=== PATIENT | male | born 1935 | race Caucasian/White ===

== ENCOUNTER 2019-12-23 16:39 | Emergency (ER) | payer BC, SELFPAY ==
[2019-12-23 16:50] VITALS: BP 135/51; PULSE 63; RESP 12; TEMP 36.3; O2SAT 99
--- NOTE | 2019-12-23 17:01 | ED.LOWEXIN ---
HPI - Extremity Injury (Lower) General Chief Complaint: Extremity Injury, Lower Stated Complaint: Extremity injury,lower Time Seen by Provider: 12/23/19 17:01 Source: patient and RN notes reviewed History of Present Illness HPI Narrative: Patient is an 83-year-old male who presents the urgent care with complaints of severe pain behind the right knee. Patient states that it started yesterday morning he has been sitting in his recliner with the foot elevated without improvement. Patient denies any recent known injury or fall. States that nothing seems to make the area less painful. States that standing upright or ambulating exacerbates the pain. 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 Patient states he has not had recurrent issues or Boyd's cyst since then. No other acute complaints. No acute distress noted. Patient aware of the plan of care. Related Data Home Medications Medication Instructions Recorded Confirmed dutasteride 0.5 mg capsule 0.5 mg PO DAILY 05/24/19 12/14/19 nebivolol 5 mg tablet 0.25 mg PO DAILY tablet 05/24/19 12/14/19 aspirin 81 mg tablet,delayed 162 mg PO DAILY tablet 12/07/19 12/14/19 release atorvastatin 40 mg tablet 40 mg PO DAILY 12/07/19 12/14/19 vit C 250 mg-E 200 unit-zinc 40 1 tablet PO ONCE cap 12/07/19 12/14/19 mg-copper 1 dj-[id number]-bhesub capsule coenzyme Q10 200 mg capsule 200 mg PO DAILY 12/14/19 12/14/19 vitamin B complex 1 tablet PO DAILY 12/14/19 12/14/19 Allergies Allergy/AdvReac Type Severity Reaction Status Date / Time Penicillins Allergy Unknown Unknown Verified 12/23/19 16:48 Review of Systems Review of Systems: Narrative: CONSTITUTIONAL: Denies fever, chills, or sweats. EYES: Denies visual changes, redness, or discharge. ENT: Denies rhinorrhea, congestion, sore throat, or otalgia. CARDIOVASCULAR: Denies chest pain, palpitations, or edema. RESPIRATORY: Denies cough or dyspnea. GASTROINTESTINAL: Denies abdominal pain, nausea, vomiting, or diarrhea. GENITOURINARY: Denies dysuria or hematuria. SKIN: Denies rash or itching. MUSCULOSKELETAL: Reports of pain behind the right knee NEUROLOGIC: Denies headache, numbness, or weakness. All other systems reviewed are negative, except as documented in HPI. PENDING SALE TO [facility] Past Medical History Medical History (Updated 12/23/19 @ 17:05 by SOPHY Dent) BPH (benign prostatic hyperplasia) Coronary artery disease Dupuytrens contracture GERD (gastroesophageal reflux disease) Hammer toe of second toe of right foot Hyperlipidemia Open wound of umbilical region without complication Osteoarthritis of both knees Primary hypertension Right anterior shoulder pain (~08/2018) Right inguinal hernia Surgical History Surgical History History of appendectomy History of hand surgery History of hernia repair History of vasectomy Hx of CABG (~2010) Hx of cataract surgery Hx of tonsillectomy Social History Social History Smoking status: Former smoker Second hand tobacco smoke exposure: No Smoking end date: 04/28/80 Alcohol intake: never Substance use: never Substance use type: does not use Gender identity (if verbalized by the patient): Male Comments At the time of my signature, I reviewed and agree with the nursing past medical, surgical, social, and family history. There is no relevant family history pertinent to the patient complaint. Exam Narrative: Exam Narrative: GENERAL: This is a well-nourished, well-developed patient, in no apparent distress. HEAD: normocephalic, atraumatic. EYES: PERRL. Sclera clear/white. Vision is grossly intact. EARS: External ears normal NOSE: External nose normal with no obvious nasal discharge, nares without redness, no rhinorrhea. THROAT: Mucous membranes moist NECK: Neck supple SKIN: warm, intact with no s
== END 2019-12-23 17:10 | disposition home or self-care (01) ==
PROVIDERS: Emergency Provider Nurse Practitioner Family; PCP Family Medicine
DX: M71.21 Synovial cyst of popliteal space [Baker], right knee (principal); Z87.891 Personal history of nicotine dependence; N40.0 Benign prostatic hyperplasia without lower urinary tract symptoms; I25.10 Atherosclerotic heart disease of native coronary artery without angina pectoris; K21.9 Gastro-esophageal reflux disease without esophagitis; E78.5 Hyperlipidemia, unspecified; M17.0 Bilateral primary osteoarthritis of knee; I10 Essential (primary) hypertension; Z79.82 Long term (current) use of aspirin
CPT/HCPCS: 99212; G0463

== ENCOUNTER 2020-01-16 00:03 | Observation (INO) | payer BC, SELFPAY ==
[2020-01-16] VITALS (8 sets, daily range): BP systolic 121–153; BP diastolic 53–73; PULSE 55–68; RESP 14–20; TEMP 36.2–36.9; O2SAT 97–100; BMI 24.6
--- NOTE | ~2020-01-16 | CT_ITS ---
EXAMINATION: CT abdomen pelvis w con DATE: 01/16/2020 01:14 INDICATION: Abdominal pain TECHNIQUE: Computed tomography (CT) of the abdomen and pelvis was performed with 100 cc Omnipaque 350 intravenous contrast. Automated exposure control and iterative reconstruction technique were employe d. Exam dose: 495.24 mGy-cm total exam DLP. COMPARISON: 10/22/2015 CT abdomen pelvis FINDINGS: There is mild atelectasis at the lung bases. Borderline heart size. No pericardial or pleur al effusion. Small hepatic cysts are suggested. An enhancing lesion is suggested in the left hepatic lobe (series 3 images 48, 49, possibly a small hemangioma. Normal splenic size. No pancreatic mass lesion, calcification or ductal dilatation. Normal morphology of the adrenal glands. 3 mm nonobstructing right renal calculus. 12 mm mid lateral left renal cyst. Multiple left parapelvic renal cysts. No ureteral calculus or hydroureteronephrosis. Very prominent prostate enlargement and occasional prostate calcifications. The urinary bladder is un remarkable. There is atherosclerotic calcification of the abdominal aorta and iliac and femoral arteries. No intr aperitoneal or retroperitoneal or pelvic mass lesion or adenopathy or ascites. Diverticulosis of the colon; no CT evidence of diverticulitis. Right inguinal hernia containing a single loop of small bowel in trace free fluid. There are multiple fluid distended loops of small bowel in the abdomen and pelvis with a transition p oint noted in the left pelvis, with proximal equalization of the small bowel content, consistent with small bowel obstruction. There is a small amount of free fluid in the dependent pelvis, likely secondary to the small bowel ob struction. Prominent bilateral hip osteoarthritis. 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 Grade 1 anterolisthesis at L4-5. Prominent degenerative changes at the apophyseal joints. IMPRESSION: Small bowel obstruction Right inguinal hernia containing nonobstructed loop of small bowel Hepatic cysts and possible hepatic hemangioma 3 mm nonobstructing right renal calculus Left renal cysts Diverticulosis of the colon Reviewed, dictated and finalized at [facility] Reviewed, dictated and finalized at [facility].
--- NOTE | 2020-01-16 00:14 | ECG_ITS ---
Measurements Intervals [place] Rate: 54 P: 58 IA: 174 QRS: -31 QRSD: 98 T: 48 QT: 429 QTc: 409 Interpretive Statements SINUS BRADYCARDIA LEFT AXIS DEVIATION BORDERLINE ECG Electronically Signed On 01-16-2020 8:03:19 CDT by Jose Armando Perry D.O.
[2020-01-16 00:27] LABS: Basophils Percent Auto 0.2 % (0.2-1.2); Eosinophils Absolute Auto 0.2 K/mm3 (0-0.3); Eosinophils Percent Auto 1.7 % (0-4.4); Hematocrit 43.4 % (42.0-52.0); Hemoglobin 14.4 g/dL (14.0-18.0); Immature Granulocyte Absolute 0.02 K/mm3 (0.00-0.031); Immature Granulocyte Percent A 0.2 % (0-0.5); Lymphocytes Absolute Auto 1.99 K/mm3 (0.9-3.2); Lymphocytes Percent Auto 21.2 % (18.3-44.2); Mean Corpuscular HGB Conc 33.2 g/dl (32-36); Mean Corpuscular Hemoglobin 31.7 pg (26-34); Mean Corpuscular Volume 95.6 fl (80-100); Mean Platelet Volume 9.9 fl (7.4-10.4); Monocytes Absolute Auto 0.9 K/mm3 (0.1-0.6); Monocytes Percent Auto 9.3 % (2.6-8.5); Neutrophils Absolute Auto 6.3 K/mm3 (1.3-6.7); Neutrophils Percent Auto 67.4 % (45.5-73.1); Platelet Count Result 224 k/mm3 (150-375); Red Blood Count 4.54 M/mm3 (4.6-6.20); White Blood Count 9.4 K/mm3 (4.5-10.0)
[2020-01-16 00:38] LABS: Alanine Aminotransferase 23 U/L (4-50); Albumin Level 3.8 g/dL (3.5-5.1); Alkaline Phosphatase 72 U/L (38-126); Anion Gap 4 mmol/L (8-16); Aspartate Amino Transferase 32 U/L (17-59); Bilirubin,Total 0.7 mg/dL (0.2-1.3); Blood Urea Nitrogen 18 mg/dL (9-20); Calcium 8.6 mg/dL (8.4-10.2); Carbon Dioxide 30 mmol/L (22-30); Chloride 103 mmol/L (98-107); Estimated CRCL calculation 53 ml/min; Estimated Glomerular Filt Rate > 60; Glucose 117 mg/dL (75-110); Lipase 64 U/L (23-300); Potassium 4.5 mmol/L (3.4-5.0); Sodium 137 mmol/L (137-145)
[2020-01-16 00:38] LABS: Lactic Acid Reflex 0.8 mmol/L (0.7-2.1)
[2020-01-16] MEDS: SODIUM CHLORIDE 0.9% IV 500 ML 999 ML IV CONT (00:40)
[2020-01-16 01:57] LABS: Add Urine Microscopic? NO; Appearance Urine Clear (Clear); Bilirubin Urine Negative (Negative); Blood Urine Negative (Negative); Color Urine Yellow (Yellow); Glucose Urine UA Negative (Negative); Ketones Urine Negative (Negative); Leukocyte Esterase Ur Negative LEU/UL (Negative); Nitrate Urine Negative (Negative); Protein Urine Negative (Negative); Urobilinogen Urine Negative mg/dL (<2.0)
[2020-01-16 02:00] LABS: Specific Grav Ur 1.036 (1.001-1.035)
--- NOTE | 2020-01-16 02:19 | ED.ABDPAIN ---
HPI - Abdominal Pain General Chief Complaint: Abdominal Pain Stated Complaint: abd pain Time Seen by Provider: 01/16/20 00:15 Source: patient Mode of arrival: EMS Limitations: no limitations History of Present Illness HPI narrative: This patient is an 84 year old male who presents for evaluation of lower abdominal pain. He states he developed abdominal pain 2 hours after eating dinner at 6 pm. He describes pain as constant dull ache that intermittent becomes sharp pain. He reports the location as an arc from his left lower abdomen to right lower abdomen. He had nausea, constant belching with his pain. He denies fever or chills. He reports his pain is currently 3/10. Related Data Home Medications Medication Instructions Recorded Confirmed dutasteride 0.5 mg capsule 0.5 mg PO HS 05/24/19 01/16/20 nebivolol 5 mg tablet 2.5 mg PO DAILY tablet 05/24/19 01/16/20 atorvastatin 40 mg tablet 40 mg PO DAILY 12/07/19 01/16/20 coenzyme Q10 200 mg capsule 200 mg PO DAILY 12/14/19 01/16/20 aspirin 162 mg PO DAILY 01/16/20 01/16/20 Allergies Allergy/AdvReac Type Severity Reaction Status Date / Time Penicillins Allergy Unknown Unknown Verified 12/28/19 09:51 Review of Systems Review of Systems: All systems reviewed & are unremarkable except as noted in HPI and below Constitutional: Constitutional: Denies chills and Denies fever(s) Cardiovascular: Cardiovascular: Denies chest pain Respiratory: Respiratory: Denies cough and Denies dyspnea [facility] Social History Social History Smoking packs per day: 1 Smoking cigarettes per day: 20.0 Years smoked: 22 Smoking pack-years: 22.00 Smoking status: Former smoker Second hand tobacco smoke exposure: No Smoking end date: 04/28/80 Alcohol intake: never Substance use: never Substance use type: does not use Gender identity (if verbalized by the patient): Male Spiritual care concerns: No Exam Const: General: alert Orientation/consciousness: patient oriented x3 Eyes: EOM: EOMs intact bilaterally Chest: Chest palpation & inspection: normal inspection of the chest Resp: Effort & Inspection: normal respiratory effort and no retractions Auscultation: clear to auscultation bilaterally Cardio: Rate: regular rate Rhythm: regular rhythm Heart sounds: no murmurs GI: Inspection: distended GI Palp: Yes Soft to palpation, Yes Tenderness to palpation present (GI) (Diffuse) and Yes Hernia present (right inguinal hernia) Skin: General skin exam: normal color Rashes: no rashes Neuro: General: patient oriented x3 and moves all extremities Psych: Mental Status: mental status grossly normal Affect: normal affect Course Reevaluation(s) Reevaluation #1: Nursing staff is unable to get NGtube to pass nose Date: 01/16/20 Time: 03:46 Consultations Consultation #1: Dr. Oconnor accepts patient and Dr. Keane will consult. Date: 01/16/20 Time: 03:00 Vital Signs Vital signs: Vital Signs Temperature 98.4 F 01/16/20 00:06 Pulse Rate 55 L 01/16/20 00:06 Respiratory Rate 15 01/16/20 00:06 Blood Pressure 121/61 01/16/20 00:06 Pulse Oximetry 99 01/16/20 00:06 Temperature 98.2 F 01/16/20 06:00 Pulse Rate 59 L 01/16/20 06:00 Respiratory Rate 20 01/16/20 06:00 Blood Pressure 148/62 H 01/16/20 06:00 Pulse Oximetry 98 01/16/20 06:00 MDM - Abdominal Pain Lab Data Attestation: I reviewed the patient's lab results. Result diagrams: 01/16/20 00:16 01/16/20 00:16 Labs: Lab Results 01/16/20 01/16/20 01/16/20 Range/Units 00:16 00:16 00:18 WBC 9.4 (4.5-10.0) K/mm3 RBC 4.54 L (4.6-6.20) M/mm3 Hgb 14.4 (14.0-18.0) g/dL Hct 43.4 (42.0-52.0) % MCV 95.6 (80-100) fl MCH 31.7 (26-34) pg MCHC 33.2 (32-36) g/dl RDW 13.0 (11.5-14.5) % Plt Count 224 (150-375) k/mm3 MPV 9.9 (7.4-10.4) fl Immature G
--- NOTE | 2020-01-16 03:43 | PC.NURSE ---
Unable to pass NG tube in either nostril (4 attempts made-twice in each nostril). Dr Fernandez made aware-patient has deviated septum and refused further attempts
--- NOTE | 2020-01-16 04:30 | ADMGEN ---
This patient, Deep Lewis, was admitted to [facility] Surg Room 326-01. Patient/family oriented to hospital policies and general routines including ID bracelet, bed and alarms, visiting hours, pain management, procedures, bathroom and other care routines, personal items, smoking policy, room service/diet, and visiting hours. Valuables list has been completed. Information on how to activate the Rapid Response Team has been discussed. Patient/Family are encouraged to report perceived risks to care and to ask questions if they do not understand what they are told or what they should do.
--- NOTE | 2020-01-16 05:17 | PM.IMHP ---
H&P: HPI History of Present Illness Date/Time: 01/16/20 05:17 Chief complaint: Abdominal pain Narrative: Deep Lewis is a 84 year old male with a past medical history of Umbilical hernia repair, appendectomy, hyperlipidemia, BPH and coronary artery disease who presented to the ER with abdominal pain that started around 9:00 p.m. after eating dinner. The patient reported that he ate him and beans, corn bread, close well, and cucumber salad. Approximately an hour after dinner he began having [id number] lower abdominal pain. Pain was aching in nature And a 3/10 in intensity but would have occasional sharp stabbing pains that would be a 6/10 in intensity. Pain was accompanied by belching. He usually has 2 soft formed bowel movements a day. his pain would start in the left lower abdomen and seemed to rotate around to the periumbilical region and right lower abdomen. Prior to coming to the ER he had had 3 soft formed bowel movements. He denies having hematochezia or melena. he reports as noted pain progressed his pain did radiate up into his epigastric region into his lower chest. He was concerned that his pain could be due to a heart attack. He took 3 nitros without any relief in his symptoms before calling EMS. He denies any shortness of breath, cough or congestion. He did have a history of coronary artery disease with 2 cardiac stents placed in 2010. The symptoms were different than his prior cardiac symptoms. he has not had any vomiting. He denies even having much nausea. ER staff tried [address] an NG without success. The patient reports he has a deviated septum. he does have history of BPH. He occasionally will have a weak stream or dribbling stream. Over the last couple of days he has noticed increased urinary frequency during the day and he has had to get up every 2 hours to urinate. He feels he may not be emptying his bladder completely. He denies any dysuria, increased urgency or hematuria. Review of Systems Review of Systems: Narrative: 12 systems were reviewed with pertinent positives and negatives per HPI. Except as documented in the HPI, all other systems were reviewed and are negative. REPLACED BY [facility] Past Medical History Medical History (Updated 01/16/20 @ 08:22 by Ursula Oconnor DO) BPH (benign prostatic hyperplasia) Coronary artery disease Dupuytrens contracture GERD (gastroesophageal reflux disease) Hammer toe of second toe of right foot Hyperlipidemia Osteoarthritis of both knees Primary hypertension Right anterior shoulder pain (~08/2018) Right inguinal hernia not repaired Surgical History Surgical History (Updated 01/16/20 @ 08:22 by Ursula Oconnor DO) History of appendectomy History of hand surgery History of heart artery stent (~2010) 2 stents History of strabismus surgery bilateral History of umbilical hernia repair History of vasectomy Hx of cataract surgery Hx of tonsillectomy Family History Family History (Updated 01/16/20 @ 08:32 by Ursula Oconnor DO) Mother , 89 years old CHF (congestive heart failure) Father , at 78 years old Hx of ulcer disease Son Drug abuse Social History Social History (Updated 01/16/20 @ 08:39 by Ursula Oconnor DO) Social History: primary care physician: Dr. Lauren Boyd Smoking packs per day: 1 Smoking cigarettes per day: 20.0 Years smoked: 22 Smoking pack-years: 22.00 Smoking status: Former smoker Second hand tobacco smoke exposure: No Smoking end date: 04/28/80 Alcohol intake: never Alcohol use details: patient only rarely drinks alcohol and small amounts. Substance use: never Substance use type: does not use Additional living arrangements comments: He lives with his of 63 years. He is independent in activities of daily living. They have 3 children. His son lives in [place]. He has a daughter who lives in [place] and another daughter that lives in [place].
[2020-01-16] MEDS: SODIUM CHLORIDE 0.9% IV 1,000 ML 125 ML IV CONT (05:50)
--- NOTE | 2020-01-16 11:35 | PM.CNGS ---
Assessment and Plan Assessment and plan (1) Small bowel obstruction: Code(s): K56.609 - Unspecified intestinal obstruction, unspecified as to partial versus complete obstruction Status: Acute Assessment and Plan: I have reviewed the CT. Patient's symptoms seem to have completely resolved since he was in the emergency department. Unsure whether this was adhesions or just a transient process. Will start patient on clear liquid diet and advanced as tolerated. Discussed that if recurrent symptoms develop he may require further imaging or possibly eventual surgical intervention. Okay to discharge once tolerating a regular diet. (2) Hernia, inguinal, right: Code(s): K40.90 - Unilateral inguinal hernia, without obstruction or gangrene, not specified as recurrent Status: Acute Assessment and Plan: This is reducible and asymptomatic. He has known that he had a hernia for quite some time. If he is having symptoms or this is becoming larger, could consider surgical repair in the future. Additional Plan Thank you very much for allowing me to aid in the care of this patient. History of Present Illness Consult details Consult date: 01/16/20 Reason for consult: other (small bowel obstruction) Requesting physician: Shanti Agustin MD Narrative: This is an 84-year-old man who presented to the emergency department overnight with abdominal pain with nausea and vomiting. The patient's symptoms started about 1 hour after eating dinner last night. He denies eating anything abnormal, and his ate the same thing and she did not get sick. He has never had symptoms like this in the past. Bowels were moving normally leading up to this. He does have a history of open appendectomy many years ago and had an umbilical hernia repair with mesh about [address] in the emergency department showed evidence of a small-bowel obstruction. NG tube placement was attempted in the emergency department but unsuccessful due to patient having a deviated septum. He was admitted for further treatment. Since being is admitted his pain has resolved and he is passing flatus and had a large bowel movement. He states he feels much better and denies any further nausea or bloating. He is hungry. Review of Systems Review of Systems: All systems reviewed & are unremarkable except as noted in HPI and below Constitutional: Constitutional: Denies chills and Denies fever(s) Eyes: Eyes: Denies change in vision ENT: Denies hearing loss, Denies neck pain and Denies sore throat Cardiovascular: Cardiovascular: Denies chest pain and Denies dyspnea Respiratory: Respiratory: Denies cough, Denies dyspnea and Denies wheezing Gastrointestinal: Gastrointestinal: Reports as per HPI Genitourinary: Genitourinary: Denies hematuria and Denies dysuria Musculoskeletal: Musculoskeletal: Denies arthralgias, Denies joint swelling and Denies neck pain Allergic/Immunologic: Allergic/Immunologic: Denies wheezing [facility] Past Medical History Medical History BPH (benign prostatic hyperplasia) Coronary artery disease Dupuytrens contracture GERD (gastroesophageal reflux disease) Hammer toe of second toe of right foot Hyperlipidemia Osteoarthritis of both knees Primary hypertension Right anterior shoulder pain (~08/2018) Right inguinal hernia not repaired Surgical History Surgical History History of appendectomy History of hand surgery History of heart artery stent (~2010) 2 stents History of strabismus surgery bilateral History of umbilical hernia repair History of vasectomy Hx of cataract surgery Hx of tonsillectomy Family History Family History Mother , 89 years old CHF (congestive heart failure) Father , at 78 years old Hx of ulcer disease Son
--- NOTE | 2020-01-16 15:07 | PM.DS ---
DS: Admitting Diagnosis Admitting Diagnosis Admitting Diagnosis: Abdominal pain DS: Discharge Diagnosis Discharge Diagnosis (1) Small bowel obstruction: Code(s): K56.609 - Unspecified intestinal obstruction, unspecified as to partial versus complete obstruction Status: Acute Assessment and Plan: the patient is NPO. General surgery has been consulted. Patient does not have an NG tube as ER staff was unable to place an NG tube in patient refused any further attempts at NG tube placement. Continue IV fluid hydration await further recommendations from General surgery. (2) BPH (benign prostatic hyperplasia): Qualifiers: Lower urinary tract symptom presence: symptoms absent Qualified Code(s): N40.0 - Benign prostatic hyperplasia without lower urinary tract symptoms Code(s): N40.0 - Benign prostatic hyperplasia without lower urinary tract symptoms Status: Acute Assessment and Plan: The patient is concerned he may not be completely emptying his bladder. I have requested that nursing staff checked the patient's postvoid residual At least once. Patient's Avodart is on hold. DS: Summary Hospital Course Reason for hospitalization: Chief complaint: Abdominal pain Narrative: Deep Lewis is a 84 year old male with a past medical history of Umbilical hernia repair, appendectomy, hyperlipidemia, BPH and coronary artery disease who presented to the ER with abdominal pain that started around 9:00 p.m. after eating dinner. The patient reported that he ate him and beans, corn bread, close well, and cucumber salad. Approximately an hour after dinner he began having [id number] lower abdominal pain. Pain was aching in nature And a 3/10 in intensity but would have occasional sharp stabbing pains that would be a 6/10 in intensity. Pain was accompanied by belching. He usually has 2 soft formed bowel movements a day. his pain would start in the left lower abdomen and seemed to rotate around to the periumbilical region and right lower abdomen. Prior to coming to the ER he had had 3 soft formed bowel movements. He denies having hematochezia or melena. he reports as noted pain progressed his pain did radiate up into his epigastric region into his lower chest. He was concerned that his pain could be due to a heart attack. He took 3 nitros without any relief in his symptoms before calling EMS. He denies any shortness of breath, cough or congestion. He did have a history of coronary artery disease with 2 cardiac stents placed in 2010. The symptoms were different than his prior cardiac symptoms. he has not had any vomiting. He denies even having much nausea. ER staff tried [address] an NG without success. The patient reports he has a deviated septum. he does have history of BPH. He occasionally will have a weak stream or dribbling stream. Over the last couple of days he has noticed increased urinary frequency during the day and he has had to get up every 2 hours to urinate. He feels he may not be emptying his bladder completely. He denies any dysuria, increased urgency or hematuria. Hospital Course: patient was seen by general surgery team review patient CT scan of abdomen seems small-bowel obstruction have resolved patient is clinically stable start the patient on clear liquid patient is able to tolerate advanced patient diet patient has no complaints of abdominal pain nausea or vomiting his clinically stable will going discharge the patient home Status at Discharge Functional status at discharge: uses cane/walker Overall status at discharge: patient is back to baseline Time Spent with Patient Time attestation: Total time spent providing and/or coordinating discharge services: Time spent: Less than 30 minutes Exam Const: General: comfortable and no acute distress HENMT: General nose exam: Normal nares present Eyes: General: appearance normal, both eyes and all
== END 2020-01-16 15:54 | disposition home or self-care (01) ==
LOC: ANHED 01:54 → ANH3MEDSUR 05:19
PROVIDERS: Emergency Medicine; Admitting Provider Internal Medicine; Emergency Provider General Practice; PCP Family Medicine; Visit Provider Family Medicine
DX: K56.609 Unspecified intestinal obstruction, unspecified as to partial versus complete obstruction (principal); K40.90 Unilateral inguinal hernia, without obstruction or gangrene, not specified as recurrent; K57.30 Diverticulosis of large intestine without perforation or abscess without bleeding; R00.1 Bradycardia, unspecified; I25.10 Atherosclerotic heart disease of native coronary artery without angina pectoris; E78.5 Hyperlipidemia, unspecified; M16.0 Bilateral primary osteoarthritis of hip; N40.0 Benign prostatic hyperplasia without lower urinary tract symptoms; Q61.02 Congenital multiple renal cysts; N20.0 Calculus of kidney; K21.9 Gastro-esophageal reflux disease without esophagitis; Z95.5 Presence of coronary angioplasty implant and graft
CPT/HCPCS: 36415; 74177; 80053; 81003; 83605; 83690; 85025; 93005; 96360; 99285; G0378; J7030; J7040; Q9967

== ENCOUNTER 2021-04-25 14:58 | Outpatient (CLI) | payer BC, SELFPAY ==
--- NOTE | ~2021-04-25 | XR_ITS ---
EXAMINATION: XR knee RT min 4V DATE: 04/25/2021 15:26 INDICATION: Cyst at the posterior right knee TECHNIQUE: Anteroposterior, 2 oblique and crosstable lateral views of the right knee were obtained COMPARISON: None. FINDINGS: Mild genu varum resulting from nonuniform joint space narrowing in the medial compartment which is of at least moderate severity but potentially underestimated on nonweightbearing imaging. Chondrocalcin osis in the lateral compartment. Marginal osteophytes in all 3 compartments of the knee along with ad ditional mild joint space narrowing in the patellofemoral compartment. No fracture. Small joint effus ion with suggestion of a few tiny loose osteochondral bodies at the suprapatellar pouch. IMPRESSION: 1. At least moderate severity medial compartment predominant tricompartmental osteoarthritis at the r ight knee with likely reactive small knee joint effusion. Reviewed, dictated and finalized at [facility] SPECIALIST IMPRESSION: 1. At least moderate severity medial compartment predominant tricompartmental o steoarthritis at the right knee with likely reactive small knee joint effusion.
--- NOTE | ~2021-04-25 | US_ITS ---
EXAMINATION: US venous doppler LE RT DATE: 04/25/2021 15:39 INDICATION: Right knee pain and swelling TECHNIQUE: Yoon scale images without and with compression and Doppler images of the right lower extre mity veins were obtained. COMPARISON: None FINDINGS: The right common femoral vein, profunda femoral vein, femoral vein, popliteal vein, peronea l trunk, posterior tibial veins, and greater saphenous vein are patent. There is a 6.1 x 2.4 x 5.7 cm Boyd cyst of the popliteal fossa. IMPRESSION: 1. Patent right lower extremity veins. No evidence of deep venous thrombosis. 2. Boyd's cyst. Reviewed, dictated and finalized at location F. 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
== END 2021-04-25 14:59 | disposition home or self-care (01) ==
LOC: ANHIMG 15:02
PROVIDERS: PCP Family Medicine; Visit Provider Nurse Practitioner Gerontology
DX: M79.606 Pain in leg, unspecified (principal); M25.461 Effusion, right knee; M25.561 Pain in right knee; M71.21 Synovial cyst of popliteal space [Baker], right knee; M17.11 Unilateral primary osteoarthritis, right knee; M79.89 Other specified soft tissue disorders
CPT/HCPCS: 73564; 93971

== ENCOUNTER 2022-07-23 06:49 | Outpatient (CLI) | payer BC, SELFPAY ==
[2022-07-23 07:14] LABS: Basophils Percent Auto 0.4 % (0.2-1.2); Eosinophils Absolute Auto 0.2 K/mm3 (0-0.3); Eosinophils Percent Auto 2.4 % (0-4.4); Hematocrit 45.6 % (42.0-52.0); Hemoglobin 15.1 g/dL (14.0-18.0); Immature Granulocyte Absolute 0.02 K/mm3 (0.00-0.031); Immature Granulocyte Percent A 0.3 % (0-0.5); Lymphocytes Percent Auto 38.4 % (18.3-44.2); Mean Corpuscular HGB Conc 33.1 g/dl (32-36); Mean Corpuscular Hemoglobin 31.3 pg (26-34); Mean Corpuscular Volume 94.6 fl (80-100); Mean Platelet Volume 9.7 fl (7.4-10.4); Monocytes Absolute Auto 0.8 K/mm3 (0.1-0.6); Monocytes Percent Auto 10.5 % (2.6-8.5); Neutrophils Absolute Auto 3.8 K/mm3 (1.3-6.7); Platelet Count Result 209 k/mm3 (150-375); Red Blood Count 4.82 M/mm3 (4.6-6.20); White Blood Count 7.8 K/mm3 (4.5-10.0)
[2022-07-23 07:28] LABS: Alanine Aminotransferase 23 U/L (6-50); Alkaline Phosphatase 72 U/L (38-126); Anion Gap 4 mmol/L (8-16); Aspartate Amino Transferase 38 U/L (17-59); Bilirubin,Total 1.4 mg/dL (0.2-1.3); Blood Urea Nitrogen 21 mg/dL (9-20); Calcium 8.5 mg/dL (8.4-10.2); Carbon Dioxide 32 mmol/L (22-30); Chloride 104 mmol/L (98-107); Cholesterol 129 mg/dL (0-200); Estimated Glomerular Filt Rate > 60; Glucose 94 mg/dL (65-110); HDL Direct 56 mg/dL; Potassium 4.4 mmol/L (3.4-5.0); Sodium 140 mmol/L (137-145); Triglycerides 82 mg/dL (<150)
[2022-07-23 07:39] LABS: LDL Cholesterol Direct 54 mg/dL
== END 2022-07-23 06:50 | disposition home or self-care (01) ==
PROVIDERS: PCP Family Medicine; Visit Provider Nurse Practitioner Gerontology
DX: E78.5 Hyperlipidemia, unspecified (principal); I10 Essential (primary) hypertension
CPT/HCPCS: 36415; 80053; 80061; 85025

== ENCOUNTER 2023-03-06 11:31 | Outpatient (CLI) | payer BC, SELFPAY ==
[2023-03-06 12:33] LABS: Basophils Percent Auto 0.4 % (0.2-1.2); Eosinophils Absolute Auto 0.1 K/mm3 (0-0.3); Eosinophils Percent Auto 1.6 % (0-4.4); Hematocrit 42.5 % (42.0-52.0); Hemoglobin 13.8 g/dL (14.0-18.0); Immature Granulocyte Absolute 0.02 K/mm3 (0.00-0.031); Immature Granulocyte Percent A 0.3 % (0-0.5); Lymphocytes Absolute Auto 1.96 K/mm3 (0.9-3.2); Lymphocytes Percent Auto 27.8 % (18.3-44.2); Mean Corpuscular HGB Conc 32.5 g/dl (32-36); Mean Corpuscular Hemoglobin 30.9 pg (26-34); Mean Corpuscular Volume 95.1 fl (80-100); Mean Platelet Volume 10.2 fl (7.4-10.4); Monocytes Absolute Auto 0.6 K/mm3 (0.1-0.6); Monocytes Percent Auto 8.9 % (2.6-8.5); Neutrophils Absolute Auto 4.3 K/mm3 (1.3-6.7); Platelet Count Result 219 k/mm3 (150-375); Red Blood Count 4.47 M/mm3 (4.6-6.20); Red Cell Distribution Width 13.1 % (11.5-14.5); White Blood Count 7.1 K/mm3 (4.5-10.0)
[2023-03-06 13:14] LABS: Alanine Aminotransferase 21 U/L (6-50); Albumin Level 3.7 g/dL (3.5-5.1); Alkaline Phosphatase 66 U/L (38-126); Anion Gap 6 mmol/L (8-16); Aspartate Amino Transferase 39 U/L (17-59); Bilirubin,Total 0.7 mg/dL (0.2-1.3); Blood Urea Nitrogen 29 mg/dL (9-20); Calcium 8.5 mg/dL (8.4-10.2); Carbon Dioxide 27 mmol/L (22-30); Chloride 108 mmol/L (98-107); Cholesterol 124 mg/dL (0-200); Estimated Glomerular Filt Rate > 60; Glucose 77 mg/dL (65-110); HDL Direct 48 mg/dL; Potassium 4.1 mmol/L (3.4-5.0); Sodium 141 mmol/L (137-145); Triglycerides 106 mg/dL (<150)
[2023-03-06 13:25] LABS: LDL Cholesterol Direct 57 mg/dL
== END 2023-03-06 11:32 | disposition home or self-care (01) ==
LOC: ANHLAB 11:33
PROVIDERS: PCP Family Medicine; Visit Provider Physician Assistant
DX: E78.5 Hyperlipidemia, unspecified (principal); I10 Essential (primary) hypertension
CPT/HCPCS: 36415; 80053; 80061; 85025

== ENCOUNTER 2023-10-29 18:17 | Emergency (ER) | payer BC, SELFPAY ==
--- NOTE | ~2023-10-29 | XR_ITS ---
XR chest 1V portable Ordering provider: Petra Castle History: 87 years Male with . chest pain . Comparison: None. FINDINGS: MEDIASTINUM: The cardiac silhouette is not enlarged. LUNGS: No infiltrates, effusions or pneumothorax. OTHER: No free air under the diaphragm. Degenerative changes of the spine. IMPRESSION: No acute cardiopulmonary pathology. Reviewed, dictated and finalized at location A.
[2023-10-29 18:18] VITALS: BP 111/82; PULSE 86; RESP 16; TEMP 36.3; O2SAT 98
--- NOTE | 2023-10-29 18:37 | ED.GENADULT ---
HPI - General Adult General Chief complaint: Skin/Abscess/Foreign Body <Petra Ackerman August, QUALITY CONTROL LEAD - Last Filed: 10/29/23 19:57> Stated complaint: CELLULITIS OF LEFT ARM <Petra Ackerman August, QUALITY CONTROL LEAD - Last Filed: 10/29/23 19:57> Time Seen by Provider: 10/29/23 18:37 <Petra Ackerman August, QUALITY CONTROL LEAD - Last Filed: 10/29/23 19:57> Focused HPI: Deep Lewis is an 87 y/o male who presents with left arm redness/ warmth and oozing after being stung by a wasp 2 days ago GENERAL: Well-appearing, well-nourished, and in no acute distress. HEAD: Normocephalic, atraumatic. CHEST: Clear to auscultation. ?No respiratory distress. HEART: Regular rate and rhythm.? NEURO: ?Alert and oriented x3. Patient screened in triage and initial orders placed.? ?Additional care and disposition to be based upon?diagnostic testing and treatment. <Petra Ackerman August, QUALITY CONTROL LEAD - Last Filed: 10/29/23 19:57> Focused HPI: Deep Lewis is an 87 y/o male who presents with left arm redness/ warmth and oozing after being stung by a wasp 2 days ago. Sent in by PCP for further evaluation as he may need antibiotics. GENERAL: Well-appearing, well-nourished, and in no acute distress. HEAD: Normocephalic, atraumatic. CHEST: Clear to auscultation. ?No respiratory distress. HEART: Regular rate and rhythm.? NEURO: ?Alert and oriented x3. Patient screened in triage and initial orders placed.? ?Additional care and disposition to be based upon?diagnostic testing and treatment. Agree with assesment <Bimal Turcios MD - Last Filed: 10/29/23 20:05> Related Data Home medications: Home Medications Medication Instructions Recorded Confirmed dutasteride 0.5 mg capsule 0.5 mg PO HS 05/24/19 07/23/23 coenzyme Q10 200 mg capsule (Co 200 mg PO DAILY 12/14/19 07/23/23 Q-10) aspirin 81 mg tablet,delayed 162 mg PO DAILY 01/16/20 07/23/23 release multivitamin 1 tablet PO DAILY 06/01/20 07/23/23 vitamins A,C,L-nnow-jpzgen 4,296 1 cap PO BID 06/01/20 07/23/23 mcg-226 mg-90 mg capsule (PreserVision AREDS) nebivolol 5 mg tablet (Bystolic) 5 mg PO DAILY 03/11/23 07/23/23 rosuvastatin 10 mg tablet 10 mg PO DAILY 03/11/23 07/23/23 losartan 50 mg tablet 50 mg PO DAILY PRN 07/23/23 07/23/23 <Petra Ackerman August, QUALITY CONTROL LEAD - Last Filed: 10/29/23 19:57> Allergies/adverse reactions: Allergies Allergy/AdvReac Type Severity Reaction Status Date / Time Penicillins Allergy Unknown Unknown Verified 10/29/23 18:21 <Petra Ackerman August, QUALITY CONTROL LEAD - Last Filed: 10/29/23 19:57> Review of Systems Review of Systems: All systems are reviewed and are negative unless stated otherwise in the HPI. <Bimal Turcios MD - Last Filed: 10/29/23 20:05> PMFSH Past Medical History Medical History: Medical History Benign hypertension BPH (benign prostatic hyperplasia) Coronary artery disease Dupuytrens contracture Foreign body in left ear, initial encounter GERD (gastroesophageal reflux disease) Hammer toe of second toe of right foot Hyperlipidemia Hyperlipidemia LDL goal <100 Osteoarthritis of both knees Primary hypertension Primary osteoarthritis, right shoulder Right anterior knee pain Right anterior shoulder pain (~08/2018) Right anterior shoulder pain Right foot pain Right inguinal hernia not repaired Sinus congestion Small bowel obstruction Sting from hornet, wasp, or bee <Petra Ackerman August, QUALITY CONTROL LEAD - Last Filed: 10/29/23 19:57> Surgical History Surgical History: Surgical History History of appendectomy History of hand surgery History of heart artery stent (~2010) 2 stents History of strabismus surgery bilateral History of umbilical hernia repair History of vasectomy Hx of cataract surgery Hx of tonsillectomy <Petra Castle, QUALITY CONTROL LEAD - Last Filed: 10/29/23 19:57> Family History Family History: Family History (Reviewed 10/29/23 @ 20:02 by Bimal Turcios
[2023-10-29 19:04] LABS: Basophils Percent Auto 0.1 % (0.2-1.2); Eosinophils Absolute Auto 0.3 K/mm3 (0-0.3); Eosinophils Percent Auto 3.5 % (0-4.4); Hematocrit 41.3 % (42.0-52.0); Hemoglobin 13.9 g/dL (14.0-18.0); Immature Granulocyte Absolute 0.02 K/mm3 (0.00-0.031); Immature Granulocyte Percent A 0.3 % (0-0.5); Lymphocytes Absolute Auto 2.06 K/mm3 (0.9-3.2); Lymphocytes Percent Auto 29.1 % (18.3-44.2); Mean Corpuscular HGB Conc 33.7 g/dl (32-36); Mean Corpuscular Hemoglobin 31.7 pg (26-34); Mean Corpuscular Volume 94.3 fl (80-100); Mean Platelet Volume 10.2 fl (7.4-10.4); Monocytes Absolute Auto 0.8 K/mm3 (0.1-0.6); Monocytes Percent Auto 10.9 % (2.6-8.5); Neutrophils Percent Auto 56.1 % (45.5-73.1); Platelet Count Result 202 k/mm3 (150-375); Red Blood Count 4.38 M/mm3 (4.6-6.20); Red Cell Distribution Width 13.4 % (11.5-14.5); White Blood Count 7.1 K/mm3 (4.5-10.0)
[2023-10-29 19:18] LABS: Lactic Acid Reflex 0.9 mmol/L (0.7-2.0)
[2023-10-29 19:20] LABS: Partial Thromboplastin Time 28.4 Seconds (22.3-36.8)
[2023-10-29 19:40] LABS: Alanine Aminotransferase 19 U/L (6-50); Albumin Level 3.9 g/dL (3.5-5.1); Alkaline Phosphatase 66 U/L (38-126); Anion Gap 4 mmol/L (4-12); Aspartate Amino Transferase 33 U/L (17-59); Bilirubin,Total 0.7 mg/dL (0.2-1.3); Blood Urea Nitrogen 21 mg/dL (9-20); CRP 0.8 mg/dL (<1.0); Calcium 8.6 mg/dL (8.4-10.2); Carbon Dioxide 27 mmol/L (22-30); Chloride 109 mmol/L (98-107); Estimated CRCL calculation 54 ml/min; Estimated Glomerular Filt Rate > 60; Glucose 85 mg/dL (65-110); Potassium 4.1 mmol/L (3.4-5.0); Sodium 140 mmol/L (137-145)
[2023-10-29] MEDS: SULFAMETHOXAZOLE/TRIMETHOPRIM 800/160 MG DS TABLET 1 TAB PO (19:59)
[2023-10-29] MEDS: FAMOTIDINE 20 MG/2 ML VIAL IV PUSH (20:00)
[2023-10-29] MEDS: diphenhydrAMINE HCl INJ 50 MG/ML VIAL IV PUSH (20:00)
[2023-10-29] MEDS: methylPREDNISolone SOD SUCC 125 MG VIAL IV PUSH (20:00)
[2023-10-29 20:29] VITALS: BP 143/61; PULSE 61; RESP 20; O2SAT 97
--- NOTE | 2023-10-29 20:33 | PC.NURSE ---
discharge instructions called to Angela Sanchez. discharge packet sent back with family/patient
== END 2023-10-29 20:30 | disposition home or self-care (01) ==
LOC: ANHED 19:56
PROVIDERS: Emergency Provider Emergency Medicine; PCP Family Medicine
DX: L03.114 Cellulitis of left upper limb (principal); T63.461A Toxic effect of venom of wasps, accidental (unintentional), initial encounter; I10 Essential (primary) hypertension; Z79.82 Long term (current) use of aspirin; I25.10 Atherosclerotic heart disease of native coronary artery without angina pectoris; K21.9 Gastro-esophageal reflux disease without esophagitis; E78.5 Hyperlipidemia, unspecified; Z87.891 Personal history of nicotine dependence
CPT/HCPCS: 36415; 71045; 80053; 83605; 85025; 85610; 85730; 86140; 87040; 96374; 96375; 99284; A9270; J1200; J2919

== ENCOUNTER 2024-02-25 12:14 | Emergency (ER) | payer BC, SELFPAY ==
[2024-02-25] VITALS (7 sets, daily range): BP systolic 120–143; BP diastolic 55–68; PULSE 59–76; RESP 16–19; TEMP 36.3–36.6; O2SAT 97–98
--- NOTE | ~2024-02-25 | US_ITS ---
EXAMINATION: US venous doppler UE DATE: 02/25/2024 14:37 INDICATION: Left upper limb deep vein thrombosis. TECHNIQUE: Grayscale ultrasound images without and with compression and Doppler ultrasound images of the left upper extremity veins were obtained. COMPARISON: None. FINDINGS: The visualized portions of the left internal jugular vein, subclavian vein, axillary vein, brachial v eins, basilic vein, cephalic vein, radial vein, and ulnar vein are patent. IMPRESSION: 1. No deep venous thrombosis. Reviewed, dictated and finalized at location B.
--- NOTE | 2024-02-25 14:03 | ED.GENADULT ---
HPI - General Adult General Chief complaint: Extremity Problem,Nontraumatic Stated complaint: left arm issues Time Seen by Provider: 02/25/24 12:58 History of Present Illness HPI narrative: 88-year-old male present to the emergency department for evaluation for left arm bruising. Patient denies any falls or injuries. Patient states he does suspect he injured his arm as he was putting on his compression stockings. Patient states he was pulling hard and felt a pop in the arm. Patient states since that time he had increased swelling and bruising of the left arm. Patient did have outpatient x-rays that showed no acute fracture. Related Data Home Medications Medication Instructions Recorded Confirmed dutasteride 0.5 mg capsule 0.5 mg PO HS 05/24/19 02/10/24 coenzyme Q10 200 mg capsule (Co 200 mg PO DAILY 12/14/19 02/10/24 Q-10) aspirin 81 mg tablet,delayed 162 mg PO DAILY 01/16/20 02/10/24 release multivitamin 1 tablet PO DAILY 06/01/20 02/10/24 vitamins A,C,K-gjwt-iskqpr 4,296 1 cap PO BID 06/01/20 02/10/24 mcg-226 mg-90 mg capsule (PreserVision AREDS) nebivolol 5 mg tablet (Bystolic) 5 mg PO DAILY 03/11/23 02/10/24 rosuvastatin 10 mg tablet 10 mg PO DAILY 03/11/23 02/10/24 losartan 50 mg tablet 50 mg PO DAILY PRN 07/23/23 02/10/24 Allergies Allergy/AdvReac Type Severity Reaction Status Date / Time Penicillins Allergy Unknown Unknown Verified 02/10/24 14:44 Review of Systems Review of Systems: All systems reviewed & are unremarkable except as noted in HPI and below [facility] Past Medical History Medical History Benign hypertension BPH (benign prostatic hyperplasia) Coronary artery disease Dupuytrens contracture Foreign body in left ear, initial encounter GERD (gastroesophageal reflux disease) Hammer toe of second toe of right foot Hyperlipidemia Hyperlipidemia LDL goal <100 Osteoarthritis of both knees Primary hypertension Primary osteoarthritis, right shoulder Right anterior knee pain Right anterior shoulder pain (~08/2018) Right anterior shoulder pain Right foot pain Right inguinal hernia not repaired Sinus congestion Small bowel obstruction Sting from hornet, wasp, or bee Surgical History Surgical History History of appendectomy History of hand surgery History of heart artery stent (~2010) 2 stents History of strabismus surgery bilateral History of umbilical hernia repair History of vasectomy Hx of cataract surgery Hx of tonsillectomy Family History Family History Mother , 89 years old CHF (congestive heart failure) Father , at 78 years old Hx of ulcer disease Son Drug abuse Social History Social History Social History: Smoking packs per day: 1 Smoking cigarettes per day: 20.0 Years smoked: 22 Smoking pack-years: 22.00 Smoking status: Former smoker Tobacco type: cigarettes Second hand tobacco smoke exposure: No Smoking end date: 04/28/80 Alcohol intake: never Alcohol use details: patient only rarely drinks alcohol and small amounts. Substance use: never Substance use type: does not use Do You Feel Safe in your Home?: Yes Lack of Transportation: No Lack of Food: Never True Current Housing: I Have Housing Concerned About Future Housing: No Difficulty Paying Gas/Electric Bills: No Difficulty Paying for Meds: No Currently Unemployed: YES Education: Don't Know Difficulty w/ Childcare or Family Care: No Living arrangements: with family Additional living arrangements comments: He lives with his of 63 years. He is independent in activities of daily living. They have 3 children. His son lives in [place]. He has a daughter who lives in [place] and another daughter that lives in [place]. 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 He traveled internationally for his job and lived in [place] for many years, [place] for 10-15 years, and many other places. Gender identity (if verbalized by the patient): Male Sexual Orientation (if Verbalized by the Patient): Straight or Heterosexual Spiritual care concerns: No Exam Narrative: APPEARANCE: Well appearing, no pain, no distress, well-nourished. HEAD: normocephalic, atraumatic. EYES: PERRLA/EOMI, conjunctivae clear. NOSE: Normal no drainage EARS:TMS clear with good light reflex. THROAT: Pharynx clear, no exudate. NECK: Supple. No adenopathy, no masses. RESPIRATORY: Airway patent, respirations nonlabored. Clear to auscultation bilaterally, no rales, rhonchi, wheezing. CARDIOVASCULAR: Regular rate and rhythm without murmurs rubs or gallops. ABDOMINAL: Soft, nontender, nondistended, normal bowel sounds MUSCULOSKELETAL: Moves all extremities. Strength/ROM intact, No edema, No calf tenderness. NEURO: Alert. Cranial nerves II through XII intact. Grossly intact SKIN: Ecchymosis to distal left forearm, neurovascularly intact Course Vital Signs Vital signs: Vital Signs Temperature 97.8 F 02/25/24 12:17 Pulse Rate 68 02/25/24 12:17 Respiratory Rate 18 02/25/24 12:17 Blood Pressure 143/58 H 02/25/24 12:17 Pulse Oximetry 97 02/25/24 12:17 Temperature 97.9 F 02/25/24 15:30 Pulse Rate 74 02/25/24 15:30 Respiratory Rate 16 02/25/24 15:30 Blood Pressure 120/64 02/25/24 15:30 Pulse Oximetry 98 02/25/24 15:30 Medical Decision Making MDM Narrative Medical decision making narrative: 88-year-old male presents to the emergency department for evaluation for bruising to the left arm. X-rays were negative for acute fracture. Ultrasound was negative for DVT. Do suspect the patient has a torn muscle resulting and a resolving hematoma. Patient is neurovascularly intact, and no concern for compartment syndrome. Differential Diagnosis Differential Diagnosis: DVT, ecchymosis, muscle injury, Vital Signs Vital Signs: Vital Signs Temperature 97.8 F 02/25/24 12:17 Pulse Rate 68 02/25/24 12:17 Respiratory Rate 18 02/25/24 12:17 Blood Pressure 143/58 H 02/25/24 12:17 Pulse Oximetry 97 02/25/24 12:17 Temperature 97.9 F 02/25/24 15:30 Pulse Rate 74 02/25/24 15:30 Respiratory Rate 16 02/25/24 15:30 Blood Pressure 120/64 02/25/24 15:30 Pulse Oximetry 98 02/25/24 15:30 Lab Data Lab results reviewed: Yes I reviewed the patient's lab results. 02/25/24 14:36 02/25/24 14:36 Labs: Lab Results 02/25/24 Range/Units 14:36 WBC 7.1 (4.5-10.0) K/mm3 RBC 4.39 L (4.6-6.20) M/mm3 Hgb 13.9 L (14.0-18.0) g/dL Hct 42.2 (42.0-52.0) % MCV 96.1 (80-100) fl MCH 31.7 (26-34) pg MCHC 32.9 (32-36) g/dl RDW 13.1 (11.5-14.5) % Plt Count 214 (150-375) k/mm3 MPV 9.5 (7.4-10.4) fl Immature Gran % (Auto) 0.1 (0-0.5) % Neut % (Auto) 57.2 (45.5-73.1) % Lymph % (Auto) 31.2 (18.3-44.2) % Sutter % (Auto) 9.4 H (2.6-8.5) % Eos % (Auto) 1.8 (0-4.4) % Baso % (Auto) 0.3 (0.2-1.2) % Lymph # (Auto) 2.23 (0.9-3.2) K/mm3 Sutter # (Auto) 0.7 H (0.1-0.6) K/mm3 Eos # (Auto) 0.1 (0-0.3) K/mm3 Baso # (Auto) 0.0 (0.0-0.1) K/mm3 Abs Immat Gran (auto) 0.01 (0.00-0.031) K/mm3 Absolute Neuts (auto) 4.1 (1.3-6.7) K/mm3 Absolute Nucleated RBC 0.000 (0.0-0.012) K/mm3 Nucleated RBC % 0.0 (0.0-0.2) % PT 14.2 (11.1-14.7) Seconds INR 1.1 APTT 28.1 (22.3-36.8) Seconds Sodium 137 (137-145) mmol/L Potassium 4.5 (3.4-5.0) mmol/L Chloride 107 (98-107) mmol/L Carbon Dioxide 26 (22-30) mmol/L Anion Gap 4 (4-12) mmol/L BUN 23 H (9-20) mg/dL Creatinine 0.80 (0.7-1.3) mg/dL Estim Creat Clear Calc 61 ml/min Estimated GFR > 60 (59 - ) Glucose 92 (65-110) mg/dL Calcium 8.5 (8.4-10.2) mg/dL Total Bilirubin 0.9 (0.2-1.3) mg/dL AST 39 (17-59) U/L ALT 19 (6-50) U/L Alkaline Phosphatase 53 (38-126) U/L Total Protein 7.0 (6.3-8.2) g/dL Albumin 3.7 (3.5-5.1) g/dL Imaging Data Radiologist's impression: Impressions Venous Doppler Study 02/25/24 14:39 IMPRESSION: 1. No deep venous thrombosis. Discharge Plan Discharge Clinical Impression: Abnormal bruising Patient Disposition: Home, Self-Care Condition: Stable Instructions: Antibiotic Form Additional Instructions: Have close follow-up with your primary care physician for recheck. If you have any worsening symptoms then please call or return to the emergency department. Prescriptions: No Action multivitamin Tablet 1 tablet PO DAILY PreserVision AREDS [id number] capsule 1 cap PO BID acetaminophen [Tylenol Arthritis Pain] 650 mg tablet extended release 650 mg PO Q8H PRN (Reason: pain) Qty: 90 0RF coenzyme Q10 [Co Q-10] 200 mg capsule 200 mg PO DAILY losartan 50 mg tablet 50 mg PO DAILY PRN Rx Instructions: for BP >130/90 aspirin 81 mg Tablet,Delayed Release (Dr/Ec) 162 mg PO DAILY dutasteride 0.5 mg capsule 0.5 mg PO HS Rx Instructions: take 1 capsule by oral route every day Bystolic 5 mg tablet 5 mg PO DAILY Rx Instructions: take 1/2 tablet by oral route every day rosuvastatin 10 mg tablet 10 mg PO DAILY sertraline 25 mg tablet 25 mg PO DAILY Qty: 30 2RF omeprazole 40 mg capsule,delayed release(DR/EC) See Rx Instructions .ROUTE .COMPLEX Qty: 90 1RF Dose Instruction: TAKE 1 CAPSULE(40 MG) BY MOUTH EVERY DAY BEFORE A MEAL Rx Instructions: TAKE 1 CAPSULE(40 MG) BY MOUTH EVERY DAY BEFORE A MEAL epinephrine 0.3 mg/0.3 mL auto-injector 0.3 mg IM ONCE Qty: 2 0RF Rx Instructions: as a single dose; may repeat once tamsulosin 0.4 mg capsule See Rx Instructions .ROUTE .COMPLEX Qty: 90 1RF Dose Instruction: TAKE 1 CAPSULE BY MOUTH EVERY DAY AT BEDTIME Rx Instructions: TAKE 1 CAPSULE BY MOUTH EVERY DAY AT BEDTIME Follow-up/Referrals: Rama Turner MD [Primary Care Provider] -
[2024-02-25 14:44] LABS: Basophils Percent Auto 0.3 % (0.2-1.2); Eosinophils Absolute Auto 0.1 K/mm3 (0-0.3); Eosinophils Percent Auto 1.8 % (0-4.4); Hematocrit 42.2 % (42.0-52.0); Hemoglobin 13.9 g/dL (14.0-18.0); Immature Granulocyte Absolute 0.01 K/mm3 (0.00-0.031); Immature Granulocyte Percent A 0.1 % (0-0.5); Lymphocytes Absolute Auto 2.23 K/mm3 (0.9-3.2); Lymphocytes Percent Auto 31.2 % (18.3-44.2); Mean Corpuscular HGB Conc 32.9 g/dl (32-36); Mean Corpuscular Hemoglobin 31.7 pg (26-34); Mean Corpuscular Volume 96.1 fl (80-100); Mean Platelet Volume 9.5 fl (7.4-10.4); Monocytes Absolute Auto 0.7 K/mm3 (0.1-0.6); Monocytes Percent Auto 9.4 % (2.6-8.5); Neutrophils Absolute Auto 4.1 K/mm3 (1.3-6.7); Neutrophils Percent Auto 57.2 % (45.5-73.1); Platelet Count Result 214 k/mm3 (150-375); Red Blood Count 4.39 M/mm3 (4.6-6.20); Red Cell Distribution Width 13.1 % (11.5-14.5); White Blood Count 7.1 K/mm3 (4.5-10.0)
[2024-02-25 14:54] LABS: Alanine Aminotransferase 19 U/L (6-50); Albumin Level 3.7 g/dL (3.5-5.1); Alkaline Phosphatase 53 U/L (38-126); Anion Gap 4 mmol/L (4-12); Aspartate Amino Transferase 39 U/L (17-59); Bilirubin,Total 0.9 mg/dL (0.2-1.3); Blood Urea Nitrogen 23 mg/dL (9-20); Calcium 8.5 mg/dL (8.4-10.2); Carbon Dioxide 26 mmol/L (22-30); Chloride 107 mmol/L (98-107); Estimated CRCL calculation 61 ml/min; Estimated Glomerular Filt Rate > 60; Glucose 92 mg/dL (65-110); INR 1.1; Potassium 4.5 mmol/L (3.4-5.0); Prothrombin Time 14.2 Seconds (11.1-14.7); Sodium 137 mmol/L (137-145)
[2024-02-25 14:55] LABS: Partial Thromboplastin Time 28.1 Seconds (22.3-36.8)
== END 2024-02-25 16:00 | disposition home or self-care (01) ==
PROVIDERS: Emergency Provider Emergency Medicine; PCP Family Medicine
DX: M79.81 Nontraumatic hematoma of soft tissue (principal); I10 Essential (primary) hypertension; I25.10 Atherosclerotic heart disease of native coronary artery without angina pectoris; E78.5 Hyperlipidemia, unspecified; N40.0 Benign prostatic hyperplasia without lower urinary tract symptoms; M72.0 Palmar fascial fibromatosis [Dupuytren]; M19.011 Primary osteoarthritis, right shoulder; M17.0 Bilateral primary osteoarthritis of knee; K21.9 Gastro-esophageal reflux disease without esophagitis; Z95.5 Presence of coronary angioplasty implant and graft; Z98.49 Cataract extraction status, unspecified eye; Z87.891 Personal history of nicotine dependence; Z79.82 Long term (current) use of aspirin; Z79.899 Other long term (current) drug therapy
CPT/HCPCS: 36415; 80053; 85025; 85610; 85730; 93971; 99284

== ENCOUNTER 2024-03-04 01:25 | Emergency (ER) | payer BC, SELFPAY ==
--- NOTE | ~2024-03-04 | XR_ITS ---
Portable chest x-ray Comparison: 10/29/2023 Clinical History: Fever Findings: Possible minimal central congestive changes. No clear consolidation or pleural effusion. Cardiomediastinal silhouette is stable. Bones and soft tissues are unremarkable. Impression: Possible minimal central congestive change. Reviewed, dictated and finalized at location . ICAL ACCOUNT MANAGER Impression: Possible minimal central congestive change.
--- NOTE | 2024-03-04 01:25 | ECG_ITS ---
Test Date: 2024-03-04 01:27:38 Measurements Intervals [place] Rate: 88 P: 52 MS: 197 QRS: -36 QRSD: 108 T: 58 QT: 353 QTc: 428 Interpretive Statements SINUS RHYTHM VENTRICULAR PREMATURE COMPLEX LEFT AXIS DEVIATION BORDERLINE ST-T WAVE ABNORMALITY- HIGH LATERAL LEADS BASELINE ARTIFACT- I, II, III, AVR, AVL BORDERLINE ECG No previous ECG available for comparison Electronically Signed On 03-04-2024 13:51:12 [employer]DRESS [employer] MECH[employer]IC by Jose Armando Perry D.O.
[2024-03-04 03:44] LABS: Alanine Aminotransferase 20 U/L (6-50); Albumin Level 3.7 g/dL (3.5-5.1); Alkaline Phosphatase 58 U/L (38-126); Anion Gap 6 mmol/L (4-12); Aspartate Amino Transferase 35 U/L (17-59); Bilirubin,Total 0.9 mg/dL (0.2-1.3); Blood Urea Nitrogen 27 mg/dL (9-20); Calcium 8.5 mg/dL (8.4-10.2); Carbon Dioxide 25 mmol/L (22-30); Chloride 104 mmol/L (98-107); Estimated Glomerular Filt Rate > 60; Glucose 128 mg/dL (65-110); Potassium 4.1 mmol/L (3.4-5.0); Sodium 135 mmol/L (137-145)
[2024-03-04 03:54] LABS: Add Urine Microscopic? NO; Appearance Urine Clear (Clear); Bacteria Urine None Seen /hpf; Bilirubin Urine Negative (Negative); Blood Urine Negative (Negative); Color Urine Yellow (Yellow); Glucose Urine UA Negative (Negative); Ketones Urine 1+ mg/dL (Negative); Leukocyte Esterase Ur Negative LEU/UL (Negative); Nitrate Urine Negative (Negative); Non Pathogenic Casts 0-2; Protein Urine Negative (Negative); RBC Urine 0-2 /hpf (0-2); Specific Grav Ur 1.024 (1.001-1.035); Squamous Epithelial Cell Urine None Seen /hpf (Few); Urobilinogen Urine 0.2 mg/dL (<2.0); WBC Urine 0-5 /hpf (0-3); pH Urine 5.5 (5.0-9.0)
[2024-03-04 03:56] LABS: Basophils Percent Auto 0.2 % (0.2-1.2); Hematocrit 39.4 % (42.0-52.0); Hemoglobin 13.1 g/dL (14.0-18.0); Immature Granulocyte Absolute 0.05 K/mm3 (0.00-0.031); Immature Granulocyte Percent A 0.3 % (0-0.5); Lymphocytes Absolute Auto 0.48 K/mm3 (0.9-3.2); Lymphocytes Percent Auto 3.3 % (18.3-44.2); Mean Corpuscular HGB Conc 33.2 g/dl (32-36); Mean Corpuscular Hemoglobin 31.6 pg (26-34); Mean Corpuscular Volume 95.2 fl (80-100); Mean Platelet Volume 9.8 fl (7.4-10.4); Monocytes Absolute Auto 0.8 K/mm3 (0.1-0.6); Monocytes Percent Auto 5.7 % (2.6-8.5); Neutrophils Absolute Auto 13.3 K/mm3 (1.3-6.7); Neutrophils Percent Auto 90.5 % (45.5-73.1); Platelet Count Result 206 k/mm3 (150-375); Red Blood Count 4.14 M/mm3 (4.6-6.20); Red Cell Distribution Width 13.3 % (11.5-14.5); White Blood Count 14.7 K/mm3 (4.5-10.0)
[2024-03-04 03:58] VITALS: BP 145/62; PULSE 72; RESP 15; O2SAT 97
--- NOTE | 2024-03-04 04:14 | ED.GENADULT ---
HPI - General Adult General Chief complaint: Unspecified Source: patient Mode of arrival: EMS Limitations: no limitations History of Present Illness HPI narrative: 88-year-old with history of hypertension, BPH, GERD was brought in from senior living with the complaints of tremor. Patient states that he was unable to stop the shakes. He denied having any fever. No history of cough, shortness of breath, abdominal pain or urinary symptoms. Patient upon arrival today are states that he is feeling fine. Onset (ago): hour(s) (1) Severity: moderate Relieving factors: none Exacerbating factors: none Associated symptoms: denies other symptoms Related Data Home Medications Medication Instructions Recorded Confirmed dutasteride 0.5 mg capsule 0.5 mg PO HS 05/24/19 03/02/24 coenzyme Q10 200 mg capsule (Co 200 mg PO DAILY 12/14/19 03/02/24 Q-10) aspirin 81 mg tablet,delayed 162 mg PO DAILY 01/16/20 03/02/24 release multivitamin 1 tablet PO DAILY 06/01/20 03/02/24 vitamins A,C,G-lwuy-vjopyk 4,296 1 cap PO BID 06/01/20 03/02/24 mcg-226 mg-90 mg capsule (PreserVision AREDS) nebivolol 5 mg tablet (Bystolic) 5 mg PO DAILY 03/11/23 03/02/24 rosuvastatin 10 mg tablet 10 mg PO DAILY 03/11/23 03/02/24 losartan 50 mg tablet 50 mg PO DAILY PRN 07/23/23 03/02/24 Allergies Allergy/AdvReac Type Severity Reaction Status Date / Time Penicillins Allergy Unknown Unknown Verified 03/02/24 14:05 Review of Systems Review of Systems: All systems reviewed & are unremarkable except as noted in HPI and below Constitutional: Constitutional: Reports no additional constitutional complaints Eyes: Eyes: Reports no additional eye complaints ENT: Reports system reviewed and no additional complaints, except as documented Cardiovascular: Cardiovascular: Reports no additional cardiovascular complaints Respiratory: Respiratory: Reports no additional respiratory complaints Gastrointestinal: Gastrointestinal: Reports no additional gastrointestinal complaints Musculoskeletal: Musculoskeletal: Reports no additional musculoskeletal complaints [facility] Past Medical History Medical History Benign hypertension BPH (benign prostatic hyperplasia) Coronary artery disease Dupuytrens contracture Foreign body in left ear, initial encounter GERD (gastroesophageal reflux disease) Hammer toe of second toe of right foot Hyperlipidemia Hyperlipidemia LDL goal <100 Osteoarthritis of both knees Primary hypertension Primary osteoarthritis, right shoulder Right anterior knee pain Right anterior shoulder pain (~08/2018) Right anterior shoulder pain Right foot pain Right inguinal hernia not repaired Sinus congestion Small bowel obstruction Sting from hornet, wasp, or bee Surgical History Surgical History History of appendectomy History of hand surgery History of heart artery stent (~2010) 2 stents History of strabismus surgery bilateral History of umbilical hernia repair History of vasectomy Hx of cataract surgery Hx of tonsillectomy Family History Family History Mother , 89 years old CHF (congestive heart failure) Father , at 78 years old Hx of ulcer disease Son Drug abuse Social History Social History Social History: Smoking packs per day: 1 Smoking cigarettes per day: 20.0 Years smoked: 22 Smoking pack-years: 22.00 Smoking status: Former smoker Tobacco type: cigarettes Second hand tobacco smoke exposure: No Smoking end date: 04/28/80 Alcohol intake: never Alcohol use details: patient only rarely drinks alcohol and small amounts. Substance use: never Substance use type: does not use Do You Feel Safe in your Home?: Yes Lack of Transportation: No Lack of Food: Never True Current Housing: I Have Housing Concerned About Future Housing: No Difficulty Paying Gas/Electric Bills: No Difficulty Paying for Meds: No Currently Unemployed: YES Education: Don't Know Difficulty w/ Childcare or Family Care: No Living arrangements: with family Additional living arrangements comments: He lives with his of 63 years. He is independent in activities of daily living. They have 3 children. His son lives in [place]. He has a daughter who lives in [place] and another daughter that lives in [place]. 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 He traveled internationally for his job and lived in [place] for many years, [place] for 10-15 years, and many other places. Gender identity (if verbalized by the patient): Male Sexual Orientation (if Verbalized by the Patient): Straight or Heterosexual Spiritual care concerns: No Exam Narrative: GENERAL: Well-appearing, well-nourished, and in no acute distress. Very hard of hearing HEAD: Normocephalic, atraumatic. EYES: PERRLA and EOMI. ENT: Mucous membranes moist. NECK: Supple. CHEST: Clear to auscultation. No respiratory distress. HEART: Regular rate and rhythm. No murmur heard. Normal peripheral pulses. ABDOMEN: Soft, nontender, nondistended, normal active bowel sounds. EXTREMITIES: Normal range of motion. No edema. SKIN: Warm, dry, no rash. NEURO: No focal deficits. Alert and oriented x3. PSYCH: Normal mood and affect. Course Course Emergency Course: Notified patient about his lab work, chest x-ray and EKG findings. He states that he is feeling much better he feels comfortable going back to his apartment Vital Signs Vital signs: Vital Signs Pulse Rate 72 03/04/24 03:58 Respiratory Rate 15 03/04/24 03:58 Blood Pressure 145/62 H 03/04/24 03:58 Pulse Oximetry 97 03/04/24 03:58 Pulse Rate 72 03/04/24 03:58 Respiratory Rate 15 03/04/24 03:58 Blood Pressure 145/62 H 03/04/24 03:58 Pulse Oximetry 97 03/04/24 03:58 Medical Decision Making Differential Diagnosis Differential Diagnosis: Anxiety, sepsis, UTI Medical Records Medical records reviewed: Yes I reviewed the external patient's medical records. Vital Signs Vital Signs: Vital Signs Pulse Rate 72 03/04/24 03:58 Respiratory Rate 15 03/04/24 03:58 Blood Pressure 145/62 H 03/04/24 03:58 Pulse Oximetry 97 03/04/24 03:58 Pulse Rate 72 03/04/24 03:58 Respiratory Rate 15 03/04/24 03:58 Blood Pressure 145/62 H 03/04/24 03:58 Pulse Oximetry 97 03/04/24 03:58 Lab Data 03/04/24 01:43 03/04/24 01:43 Labs: Lab Results 03/04/24 03/04/24 Range/Units 01:43 01:48 WBC 14.7 H (4.5-10.0) K/mm3 RBC 4.14 L (4.6-6.20) M/mm3 Hgb 13.1 L (14.0-18.0) g/dL Hct 39.4 L (42.0-52.0) % MCV 95.2 (80-100) fl MCH 31.6 (26-34) pg MCHC 33.2 (32-36) g/dl RDW 13.3 (11.5-14.5) % Plt Count 206 (150-375) k/mm3 MPV 9.8 (7.4-10.4) fl Immature Gran % (Auto) 0.3 (0-0.5) % Neut % (Auto) 90.5 H (45.5-73.1) % Lymph % (Auto) 3.3 L (18.3-44.2) % [place] % (Auto) 5.7 (2.6-8.5) % Eos % (Auto) 0.0 (0-4.4) % Baso % (Auto) 0.2 (0.2-1.2) % Lymph # (Auto) 0.48 L (0.9-3.2) K/mm3 [place] # (Auto) 0.8 H (0.1-0.6) K/mm3 Eos # (Auto) 0.0 (0-0.3) K/mm3 Baso # (Auto) 0.0 (0.0-0.1) K/mm3 Abs Immat Gran (auto) 0.05 H (0.00-0.031) K/mm3 Absolute Neuts (auto) 13.3 H (1.3-6.7) K/mm3 Absolute Nucleated RBC 0.000 (0.0-0.012) K/mm3 Nucleated RBC % 0.0 (0.0-0.2) % Sodium 135 L (137-145) mmol/L Potassium 4.1 (3.4-5.0) mmol/L Chloride 104 (98-107) mmol/L Carbon Dioxide 25 (22-30) mmol/L Anion Gap 6 (4-12) mmol/L BUN 27 H (9-20) mg/dL Creatinine 0.80 (0.7-1.3) mg/dL Estim Creat Clear Calc Not Reportable Estimated GFR > 60 (59 - ) Glucose 128 H (65-110) mg/dL Lactic Acid 1.0 (0.7-2.0) mmol/L Calcium 8.5 (8.4-10.2) mg/dL Total Bilirubin 0.9 (0.2-1.3) mg/dL AST 35 (17-59) U/L ALT 20 (6-50) U/L Alkaline Phosphatase 58 (38-126) U/L Total Protein 7.0 (6.3-8.2) g/dL Albumin 3.7 (3.5-5.1) g/dL Urine Color Yellow (Yellow) Urine Appearance Clear (Clear) Urine pH 5.5 (5.0-9.0) Ur Specific [place] 1.024 (1.001-1.035) Urine Protein Negative (Negative) mg/dL Urine Glucose (UA) Negative (Negative) mg/dL Urine Ketones 1+ H (Negative) mg/dL Ur Blood (Man) Negative (Negative) Urine Nitrate Negative (Negative) Urine Bilirubin Negative (Negative) Urine Urobilinogen 0.2 (<2.0) mg/dL Leukocyte Esterase Rfl Negative (Negative) BECKIE/UL Urine RBC 0-2 (0-2) /hpf Urine WBC 0-5 (0-3) /hpf Ur Squamous Epith Cells None seen (Few) /hpf Urine Bacteria None seen /hpf Urine Casts 0-2 Imaging Data My impression: NAD ECG Data EKG #1: ECG completion date: 03/04/24 ECG completion time: 01:27 EKG Interpretation: normal rate (88), sinus rhythm, no ST changes, NL axis and no acute changes Discharge Plan Discharge Clinical Impression: Tremor Patient Disposition: NH Care Home/Asst Living Condition: Stable Instructions: Tremors (ED) Additional Instructions: Continue home medications, follow up with her primary doctor. Prescriptions: No Action multivitamin Tablet 1 tablet PO DAILY PreserVision AREDS 14320-226-200 [id number] capsule 1 cap PO BID acetaminophen [Tylenol Arthritis Pain] 650 mg tablet extended release 650 mg PO Q8H PRN (Reason: pain) Qty: 90 0RF coenzyme Q10 [Co Q-10] 200 mg capsule 200 mg PO DAILY losartan 50 mg tablet 50 mg PO DAILY PRN Rx Instructions: for BP >130/90 aspirin 81 mg Tablet,Delayed Release (Dr/Ec) 162 mg PO DAILY dutasteride 0.5 mg capsule 0.5 mg PO HS Rx Instructions: take 1 capsule by oral route every day Bystolic 5 mg tablet 5 mg PO DAILY Rx Instructions: take 1/2 tablet by oral route every day rosuvastatin 10 mg tablet 10 mg PO DAILY sertraline 25 mg tablet 25 mg PO DAILY Qty: 30 2RF omeprazole 40 mg capsule,delayed release(DR/EC) See Rx Instructions .ROUTE .COMPLEX Qty: 90 1RF Dose Instruction: TAKE 1 CAPSULE(40 MG) BY MOUTH EVERY DAY BEFORE A MEAL Rx Instructions: TAKE 1 CAPSULE(40 MG) BY MOUTH EVERY DAY BEFORE A MEAL epinephrine 0.3 mg/0.3 mL auto-injector 0.3 mg IM ONCE Qty: 2 0RF Rx Instructions: as a single dose; may repeat once tamsulosin 0.4 mg capsule See Rx Instructions .ROUTE .COMPLEX Qty: 90 1RF Dose Instruction: TAKE 1 CAPSULE BY MOUTH EVERY DAY AT BEDTIME Rx Instructions: TAKE 1 CAPSULE BY MOUTH EVERY DAY AT BEDTIME Follow-up/Referrals: Rama Turner MD [Primary Care Provider] - Time of Disposition: 04:22
--- NOTE | 2024-03-04 05:32 | PC.NURSE ---
This RN attempted to contact pt's family to take him home as this pt does not qualify for an ambulance transport as he is A&OX4, and ambulatory. All family members listed for pt are located out of state and unable to pick pt up. This RN contacted [facility] and left a voice message asking if they provided any transportation for their assisted living residents. In the meantime, this RN asked pt if there was anyone else I could call for him for a ride, the pt replied that his friend Jamey could and gave me his number to call. This RN called Jamey and he stated he would come and get the pt in 30 minutes. A while later Angela from [facility] called back and spoke to Samuel CACERES. Angela stated to Samuel CACERES that their facility does not provide transportation for residents, Samuel informed her that his friend Jamey was going to pick him up. Angela then began speaking to Samuel CACERES in a aggressive tone and stated that is so fucking inappropriate in regards to the pt's friend giving him a ride. Angela then spoke to transmitter engineer in charge Mandy and continued to express how inappropriate it was for Jamey to give this pt a ride, Aminah CACERES attempted to explain that their aren't many other options. This RN called Jamey and told him not to come for pt. While talking with Jamey, Angela took the phone from him and stated how inappropriate we are and that the [facility] senior backup administrator has arranged for a staff member to come and tile picker the pt. No ETA was given. Pt in room resting at this time, VS stable.
[2024-03-04 05:55] VITALS: BP 125/53; PULSE 69; RESP 19; O2SAT 95
[2024-03-04 06:52] VITALS: BP 120/78; PULSE 86; RESP 16; TEMP 36.6; O2SAT 98
== END 2024-03-04 06:54 ==
PROVIDERS: Emergency Provider Family Medicine; PCP Family Medicine
DX: R25.1 Tremor, unspecified (principal); I10 Essential (primary) hypertension; I25.10 Atherosclerotic heart disease of native coronary artery without angina pectoris; E78.5 Hyperlipidemia, unspecified; N40.0 Benign prostatic hyperplasia without lower urinary tract symptoms; K21.9 Gastro-esophageal reflux disease without esophagitis; M72.0 Palmar fascial fibromatosis [Dupuytren]; M17.0 Bilateral primary osteoarthritis of knee; M19.011 Primary osteoarthritis, right shoulder; Z95.5 Presence of coronary angioplasty implant and graft; Z98.49 Cataract extraction status, unspecified eye; Z87.891 Personal history of nicotine dependence; Z79.899 Other long term (current) drug therapy; Z79.82 Long term (current) use of aspirin; I49.3 Ventricular premature depolarization; R94.31 Abnormal electrocardiogram [ECG] [EKG]
CPT/HCPCS: 36415; 71045; 80053; 81003; 83605; 85025; 93005; 99283

== ENCOUNTER 2024-04-08 13:05 | Outpatient (CLI) | payer BC, SELFPAY ==
--- NOTE | ~2024-04-08 | US_ITS ---
EXAMINATION: US venous doppler LE RT DATE: 04/08/2024 13:43 INDICATION: Right lower limb swelling TECHNIQUE: Grayscale ultrasound images without and with compression and Doppler ultrasound images of the right lower extremity veins were obtained. COMPARISON: None. FINDINGS: There is extensive noncompressible thrombus at the right common femoral vein in the pancreas with no vascular flow on color Doppler at the right profunda (deep) femoral vein, femoral vein, popliteal vei n, peroneal trunk, posterior tibial veins and peroneal veins. The greater saphenous vein outflow kevin ins patent and compressible. 7.5 x 2.8 x 4.2 cm Boyd's cyst at the right popliteal fossa. IMPRESSION: 1. Extensive qwgug-klz-yxby and lwzdl-tsk-krfu deep venous thrombosis throughout the right lower kay b from the posterior tibial and peroneal veins at the right calf and proximal to the right common fem oral vein. 2. Moderate-sized Boyd's cyst. Reviewed, dictated and finalized at location A. GRINDER IMPRESSION: 1. Extensive uhxmg-wwz-wkkn and xkfvj-fme-fzrq deep venous thrombosis througho ut the right lower limb from the posterior tibial and peroneal veins at the rig ht calf and proximal to the right common femoral vein. 2. Moderate-sized Boyd's cyst.
--- NOTE | ~2024-04-08 | US_ITS ---
EXAMINATION: US soft tissue groin RT DATE: 04/08/2024 13:44 INDICATION: Right groin pain. TECHNIQUE: Multiple grayscale and Doppler ultrasound images of the right groin were obtained. COMPARISON: CT abdomen pelvis 01/16/20 FINDINGS: There is a right inguinal hernia containing bowel. IMPRESSION: 1. Right inguinal hernia containing bowel. Reviewed, dictated and finalized at location A. AGE GRINDER
== END 2024-04-08 13:06 | disposition home or self-care (01) ==
LOC: MICIMG 13:08
PROVIDERS: PCP Family Medicine; Visit Provider Physician Assistant
DX: R19.09 Other intra-abdominal and pelvic swelling, mass and lump (principal); R60.0 Localized edema; R10.30 Lower abdominal pain, unspecified; K40.90 Unilateral inguinal hernia, without obstruction or gangrene, not specified as recurrent
CPT/HCPCS: 76882; 93971

== ENCOUNTER 2024-04-23 14:13 | Outpatient (CLI) | payer BC, SELFPAY ==
--- NOTE | ~2024-04-23 | CT_ITS ---
CT Scan of the Chest without Contrast: Clinical Indication: Nodular opacity recent x-ray Technique: Contiguous sections were acquired throughout the chest without intravenous contrast. Dose reduction technique was used on this scan by utilizing automated exposure control and iterative recon struction technique. The dose-length product (DLP) was 369.88 mGy-cm. Findings: There is no evidence of any significant mediastinal, hilar or axillary lymphadenopathy. The mediastin al soft tissues appear normal. There is no evidence of pleural or pericardial effusion. There is a vague groundglass opacity in supe rior segment left lower lobe measuring up to approximately 28 mm in maximum diameter. Images through the upper abdomen reveal no abnormalities. Impression: 28 mm groundglass opacity superior segment left lower lobe, nonspecific. Follow-up CT in 6-12 months recommended to reassess. Reviewed, dictated and finalized at [facility]. IT REVIEW ANALYST Impression: 28 mm groundglass opacity superior segment left lower lobe, nonspecific. Follow -up CT in 6-12 months recommended to reassess.
== END 2024-04-23 14:14 | disposition home or self-care (01) ==
PROVIDERS: PCP Family Medicine; Visit Provider Physician Assistant
DX: R91.1 Solitary pulmonary nodule (principal); R93.89 Abnormal findings on diagnostic imaging of other specified body structures
CPT/HCPCS: 71250

== ENCOUNTER 2024-10-25 10:22 | Outpatient (CLI) | payer BC, SELFPAY ==
--- NOTE | ~2024-10-25 | US_ITS ---
EXAMINATION: US venous doppler LE RT DATE: 10/25/2024 11:22 INDICATION: Follow-up DVT TECHNIQUE: Grayscale ultrasound images without and with compression and Doppler ultrasound images of the right lower extremity veins were obtained. COMPARISON: 04/08/2024 FINDINGS: The visualized portions of right common femoral vein, profunda (deep) femoral vein and greater saphen ous vein outflow are now patent and compressible The visualized portions of the femoral vein, popliteal vein and posterior tibial veins demonstrate no ncompressibility and absence of flow, unchanged from prior. Poor visualization of the peroneal veins. Complex multilobulated cystic focus within the right popliteal fossa measuring 7.5 x 3.1 x 7.0 cm, lynn ggesting a Boyd's cyst (increased in size from previous examination when it measured 7.5 x 2.8 x 4.2 cm). IMPRESSION: Recanalization of the right common femoral vein and profunda femoral vein, as detailed above. Noncompressibility and absence of flow within the visualized portions of the femoral vein, popliteal vein and posterior tibial veins. Increase in size of the Boyd's cyst seen on patient's previous examination dated 04/08/2024 Reviewed, dictated and finalized at location A. IMPRESSION: Recanalization of the right common femoral vein and profunda femoral vein, as d etailed above. Noncompressibility and absence of flow within the visualized portions of the fe moral vein, popliteal vein and posterior tibial veins. Increase in size of the Boyd's cyst seen on patient's previous examination francisca ed 04/08/2024
== END 2024-10-25 10:23 | disposition home or self-care (01) ==
PROVIDERS: PCP Family Medicine; Visit Provider Family Medicine
DX: I82.401 Acute embolism and thrombosis of unspecified deep veins of right lower extremity (principal); M71.21 Synovial cyst of popliteal space [Baker], right knee
CPT/HCPCS: 93971

== ENCOUNTER 2024-10-28 10:40 | Inpatient (IN) | payer MEDICARE, BC, SELFPAY ==
[2024-10-28] VITALS (13 sets, daily range): BP systolic 103–146; BP diastolic 48–102; PULSE 57–74; RESP 12–21; TEMP 36.2–36.6; O2SAT 95–100; BMI 27.8
--- NOTE | ~2024-10-28 | XR_ITS ---
EXAMINATION: XR toe 3rd RT min 2V DATE: 10/28/2024 13:32 INDICATION: Assess for osteomyelitis at the right third toe TECHNIQUE: Dorsal plantar, lateral and oblique views of the right third were obtained. COMPARISON: None FINDINGS: Diffuse osteopenia. Bone alignment is normal. No fracture. Soft tissue swelling about the distal aspe ct of the right third toe with erosion of the tuft of the distal phalanx consistent with osteomyeliti s. No other cortical erosions identified. There is mild polyarticular osteoarthritis involving multip le tarsometatarsal, metatarsophalangeal and interphalangeal joints. No soft tissue gas or radiopaque foreign bodies. IMPRESSION: Erosion at the tuft of the right third distal phalanx consistent with osteomyelitis. Reviewed, dictated and finalized at location B. IMPRESSION: Erosion at the tuft of the right third distal phalanx consistent with osteomyel itis.
--- NOTE | ~2024-10-28 | XR_ITS ---
XR chest 1V portable Ordering provider: Pita Hopson APRN History: 88 years Male with . Over workup . Comparison: March 04, 2024 FINDINGS: MEDIASTINUM: The cardiac silhouette is slightly enlarged. LUNGS: No infiltrates, effusions or pneumothorax. OTHER: No free air under the diaphragm. Degenerative the spine. IMPRESSION: No acute cardiopulmonary pathology Reviewed, dictated and finalized at location A.
--- OUTSIDE RECORDS SUMMARY | 2024-10-28 10:45 | XMS_ITS | Clinical Summary ---
Author Organization [facility] Address [address] [place] [address] Care Team Providers Care Machined Parts Metal Sprayer Name Role Phone Gabo May MD Unavailable [phone] Fady Montague MD Unavailable Adryan Powers MD Primary Care Provider [phone] Source Comments [facility],non-owned Affiliates and Associated Physician Practices is amultiple site organization consisting of ambulatory clinics and hospital sitesin [place], [place], [place] and [place]. This disclosure is being madepursuant to the Care Everywhere program and may not contain all information available regarding this patient. Last updated 18.[facility] Allergies Active Allergy Reactions Criticality Noted Date Comments Penicillins 09/30/2014 Medications * Be aware that medications may not be up to date on this document. Alwaysverify current medications with the patient. aspirin (ASPIRIN) 81 MG tablet Take 81 mg by mouth once daily. Active omeprazole EC (PRILOSEC OTC) 20 MG tablet Take 40 mg by mouth daily before breakfast Active dutasteride (AVODART) 0.5 MG capsule Take 0.5 mg by mouth once daily. Active atorvastatin (LIPITOR) 40 MG tablet Take 40 mg by mouth at bedtime. Active Coenzyme Q10 (COQ-10) 400 MG Acti ve Multiple Vitamins-Minera ls (PRESERVISION AREDS 2 PO) Active nitroGLYCERIN (NITROSTAT) 0.4 MG tablet 0.4 mg 6 Active nebivolol (BYSTOLIC) 5 MG tablet TAKE 1/2 TABLET BY MOUTH EVERY DAY 9 Active furosemide (LASIX) 20 MG tablet 0 Active Blood Pressure Monitoring (5 SERIES BP MONITOR) TAMANNA 0 Active Active Problems Problem Noted Date Diagnosed Date Impingement syndrome of right shoulder 9 Primary osteoarthritis of both knees 12/26/2017 Primary osteoarthritis of right knee 11/11/2017 Hypercholesteremia 10/17/2016 Overview (10/04/2020): Last Assessment & Plan: Lipids are well controlled. Continue high-intensity statin therapy. Last Assessment & Plan: Lipids are well controlled. Continue high-intensity statin therapy. Benign essential hypertension 10/13/2014 Overview (10/04/2020): Benign essential hypertension Last Assessment & Plan: Blood pressure is well controlled. Continue same therapy. Continue diet and exercise. Benign essential hypertension Last Assessment & Plan: Blood pressure is well controlled. Continue same therapy. Continue diet and exercise. Coronary arteriosclerosis in [place] artery 09/11 Overview (10/04/2020): LEXI BRYANT Last Assessment & Plan: Stable, without angina. I made no change in his excellent medical regimen today. I asked him to follow up with me annually, or sooner if needed. I again advised him to diet and exercise regularly. LEXI BRYANT Last Assessment & Plan: Stable, without angina. I made no change in his excellent medical regimen today. I asked him to follow up with me annually, or sooner if needed. I again advised him to diet and exercise regularly. Immunizations Immunization Administration Dates Next Due INFLUENZA VACCINE, HIGH-DOSE , QUADR. (FLUZONE HIGH-DOSE QUADRIVALENT; 65Y+), 0.7 ML (HD-IIV4) 01/05/2020 Social History Tobacco Use Types Packs/Day Years Used Date Smoking Tobacco: Former Cigarettes Q uit: 1982 Smokeless Tobacco: Never Alcohol Use Standard Drinks/Week Comments No 0 (1 standard drink = 0.6 oz pur e alcohol) Sex and Gender Information Value Date Recorded Sex Assigned at Not on file Legal Sex Male 10:28 AM CDT Gender Identity Not on file Sexual Orientation Not on file Last Filed Vital Signs Vital Sign Reading Time Taken Comments Blood Pressure 128/73 10/17/2020 1:25 PM CDT Pulse 64 10/17/2020 1:25 PM CDT Temperature - - Respiratory Rate - - Oxygen Saturation - - Inhaled Oxygen Concentration - - Weight 81.6 kg (180 lb) 10/17/2020 1:25 PM CDT Height 180.3 cm (5' 11) 10/17/2020 1:25 PM CDT Body Mass Index 25.1 10/17/2020 1:25 PM CDT Plan of Treatment Health Maintenance Due Date Last Done Comments DTAP/TDAP/TD VACCINES (1 - Tdap) 12/23/1954 PNEUMOCOCCAL VACCINE 50+ (1 of 1 - PCV) 12/23/1985 ZOSTER VACCINE (1 of 2) 12/23/1985 Respiratory Syncytial Virus (RSV) Vaccine Pt: or over 60 yrs (1 - 1-dose 75+ series) 12/23/2010 COVID-19 VACCINE ( - 2023-2 5 season) 2023 DEPRESSION SCREENING 04/28/2024 INFLUENZA VACCINE (Season Ended) 2024 01/05/20 20 HEPATITIS B VACCINE Aged Out No longe r eligible based on patient's age to complete this topic HIB VACCINE Aged Out No longer eligi ble based on patient's age to complete this topic HPV VACCINE Aged Out No longer eligi ble based on patient's age to complete this topic MENINGOCOCCAL (Group B) VACC INE SHARED DECISION-MAKING Aged Out No longer eligibl e based on patient's age to complete this topic MENINGOCOCCAL GROUPS A/C/Y/W VACCINE Aged Out No longer eligible b ased on patient's age to complete this topic Insurance ANTHEM ANTHEM Care Teams Machined Parts Metal Sprayer Relationship Specialty Start Date End Date Adryan Powers MD [address] [place] [address] PCP - General 11/03/20 [place] [id number] [place] [address] Orthopedic Surgery 09/30/14 [place] [id number] [place] [address] Physical Medicine and Rehabilitation 10/17/20
--- OUTSIDE RECORDS SUMMARY | 2024-10-28 10:45 | XMS_ITS | Clinical Summary ---
Author Organization [facility] Address [address] [place] [address] Care Team Providers Care Count Room Clerk Name Role Phone Rama Turner MD Primary Care Provider [phone] Allergies Active Allergy Reactions Criticality Noted Date Comments Penicillins Hives 03/24/2024 Medications sucralfate (CARAFATE) 1 G tablet Take 1 tablet (1 g total) by mouth 4 (four) times daily before meals and nightly. 120 tablet 03/25/2024 Active Active Problems Problem Noted Date Diagnosed Date Shingles Social History Tobacco Use Types Packs/Day Years Used Date Smoking Tobacco: Never Smokeless Tobacco: Never Tobacco Cessation:Counseling Given: Not Answered Sex and Gender Information Value Date Recorded Sex Assigned at Not on file Legal Sex Male 2:41 PM CDT Gender Identity Not on file Sexual Orientation Not on file Last Filed Vital Signs Vital Sign Reading Time Taken Comments Blood Pressure 158/78 03/25/2024 12:10 AM [employer] Pulse 86 03/24/2024 9:52 PM [employer] Temperature 37.1 C (98.7 F) 03/24/2024 9:52 PM [employer] Respiratory Rate 16 03/24/2024 9:52 PM [employer] Oxygen Saturation 98% 03/24/2024 9:52 PM [employer] Inhaled Oxygen Concentration - - Weight 86.2 kg (190 lb) 03/24/2024 9:52 PM [employer] Height 180.3 cm (5' 11) 03/24/2024 9:52 PM [employer] Body Mass Index 26.5 03/24/2024 9:52 PM [employer] Plan of Treatment Health Maintenance Due Date Last Done Comments RSV Immunization or 60+ Years (1 - 1-dose 75+ series) 12/23/2010 Zoster Vaccines (2 of 2) 04/20/2021 02/23/2021 COVID-19 Vaccine (4 - 2023- season) 2023 01/26/2021, 07/11/2020, 06/20/2020 DTaP, Tdap and Td Vaccines (3 - Td or Tdap) 01/26/2028 01/25/2018, 12/22/2014, 07/19/2004 Pneumococcal Vaccine: 50+ Years Completed 07/23/2023, 01/11/2017, 02/17/2015, Additional history exists Meningococcal B Vaccine Aged Out No l onger eligible based on patient's age to complete this topic Meningococcal Vaccine Aged Out No grayson derek eligible based on patient's age to complete this topic RSV Immunizations Under 20 Months Aged Out No longer eligible based on patient's age [place] [address] [facility] Care Teams Count Room Clerk Relationship Specialty Start Date End Date Rama Turner MD [address] [place] [address] PCP - General FAMILY PRACTICE 03/24/24
--- OUTSIDE RECORDS SUMMARY | 2024-10-28 10:45 | XMS_ITS | Encounter Summary ---
Author Organization [facility] Address [address] [place] [address] Care Team Providers Care Foiling Machine Operator Name Role Phone Gabo May MD Unavailable [phone] Adryan Powers MD Primary Care Provider [phone] Fady Montague MD Unavailable [phone] Rama Turner MD Primary Care Provider U navailable Adryan Powers MD Primary Care Provider [phone] Encounter Details Date Type Department Care Team (Late st Contact Info) Description 10/09/2017 Lab Requisition [facility] Care DermPath Lab [address] [facility] [place] [id number] Deep Salvador MD [address] [place] [address] Social History Tobacco Use Types Packs/Day Years Used Date Smoking Tobacco: Unknown Alcohol Use Standard Drinks/Week Comments Not Asked 0 (1 standard drink = 0.6 oz pur e alcohol) Sex and Gender Information Value Date Recorded Sex Assigned at Not on file Legal Sex Male 10:28 AM CDT Gender Identity Not on file Sexual Orientation Not on file documented as of this encounter Plan of Treatment Not on file documented as of this encounter Procedures Procedure Name Priority Date/Time Associated Diagnosis Comments DERMATOPATHOLOGY Routine 10/08/2017 12:0 0 AM CDT documented in this encounter Results * DERMATOPATHOLOGY (10/08/2017 12:00 AM CDT) Case Report Dermatopathology Report Case: [id number] Authorizing Provider: Deep Salvador MD Collected: 10/08/2017 12:00 AM Pathologist: Yu Garcia MD Received: 10/09/2017 12:25 PM Specimens: A) - Skin, base of suprasternal notch B) - Skin, mid sternum above manubrium C) - Skin, left preauricle skin anterior edge of ED&C site 1:16 PM CDT DERMATOPATHOLOGY LABORATORY Final Diagnosis Specimen A. SKIN, base of suprasternal notch: ACTINIC KERATOSIS (L57.0) Specimen B. 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 The specimen consists of a shave biopsy measuring 8m3i3xo. Jar 0. Specimen B: Received is one formalin filled container labeled with the patient's name and designated mid sternum above manubrium. The specimen consists of a shave biopsy measuring 55g0z2tv. Jar 0. Specimen C: Received is one formalin filled container labeled with the patient's name and designated left preauricle skin anterior edge of ED&C site. The specimen consists of a shave biopsy (2 pieces) measuring 21i5h3ll & 0z5o0jd. Jar 0. 8 1:16 PM CDT DERMATOPATHOLOGY LABORATORY Microscopic Description Specimen A. SKIN, base of suprasternal notch: There is focal parakeratosis. The lower half of the epidermis shows disorderly maturation of keratinocytes with nuclear pleomorphism. Specimen B. SKIN, mid sternum above manubrium: There are aggregates of basaloid cells with a high nuclear to cytoplasmic ratio and peripheral palisading. There is abundant melanin. Specimen C. SKIN, left preauricle skin anterior edge of ED&C site: Within the dermis there are nodular aggregates of basaloid cells associated with fibromyxoid stroma and epithelial-stromal clefts. At the advancing margin of the neoplasm, there are smaller angulated nests that infiltrate the dermis. 8 1:16 PM CDT DERMATOPATHOLOGY LABORATORY Disclaimer An external and internal positive and negative controls are appropriate for the histochemical, immunohistochemical and immunofluorescence stain(s) in this case (if any), except where stated explicitly. The performance characteristics of the stain(s) cited in this report were developed and its performance characteristic determined by the Dermatopathology Laboratory at [facility]. These tests need not be, and therefore are not, approved by the [place] Food and Drug Administration. The tests are used for clinical purposes. Billing Codes Specimen Charges Stain Charges 38903 02133 42570 1 1 1 8 1:16 PM CDT DERMATOPATHOLOGY LABORATORY Embedded Images 8 1:16 PM CDT DERMATOPATHOLOGY LABORATORY Pathology/Cytology TISSUE SPECIMEN FROM SKIN / Unknown 10/08/2017 10/09/2017 12:25 PM CDT Miscellaneous samples (specimen) TISSUE SPECIMEN FROM SKIN / Unknown 10/08/2017 10/09/2017 12:25 PM CDT Miscellaneous samples (specimen) TISSUE SPECIMEN FROM SKIN / Unknown 10/08/2017 10/09/2017 12:25 PM CDT Deep Salvador MD LAB - PATHOLOGY/CYTOLOGY ORD ERABLES Final Result DERMATOPATHOLOGY LABORATORY [facility] - Department of Dermatology [address] [facility], 5th Floor Lab [address] [phone] documented in this encounter Visit Diagnoses Not on filedocumented in this encounter Care Teams Foiling Machine Operator Relationship Specialty Start Date End Date Adryan Powers MD [address] [place] [address] [place] [address] PCP - General Family Medicine 09/30/14 10/16/20 Rama Turner MD [address] [place] [address] PCP - General Family Medicine 10/17/20 11/02/20 Adryan Powers MD [address] [place] [address] PCP - General 11/03/20 [place] [address] [place] [address] Orthopedic Surgery 09/30/14 [place] [address] [place] [address] Physical Medicine and Rehabilitation 10/17/20 documented as of this encounter
--- OUTSIDE RECORDS SUMMARY | 2024-10-28 10:45 | XMS_ITS | Encounter Summary ---
Author Organization [facility] Address [address] [facility] [place] [address] Care Team Providers Care Intermodal Dispatcher Name Role Phone Gabo May MD Unavailable [phone] Fady Montague MD Unavailable [phone] Adryan Powers MD Primary Care Provider [phone] Encounter Details Date Type Department Care Team (Late st Contact Info) Description 11/06/[address] [facility] DermPath Lab [address] [facility] [place] [address] Jer Winston MD [address] [place] [address] Social History Tobacco Use Types Packs/Day Years Used Date Smoking Tobacco: Former Cigarettes Q uit: 1983 Smokeless Tobacco: Never Alcohol Use Standard Drinks/Week Comments No 0 (1 standard drink = 0.6 oz pur e alcohol) Sex and Gender Information Value Date Recorded Sex Assigned at Not on file Legal Sex Male 10:28 AM CDT Gender Identity Not on file Sexual Orientation Not on file COVID-19 Exposure Response Date Recorded In the last month, have you been in contact with someone who was confirmed or suspected to have Coronavirus / COVID-19? No / Unsure 10/18/2020 2:10 PM CDT documented as of this encounter Plan of Treatment Not on file documented as of this encounter Procedures Procedure Name Priority Date/Time Associated Diagnosis Comments DERMATOPATHOLOGY Routine 11/02/2020 3:33 AM CDT documented in this encounter Results * DERMATOPATHOLOGY (11/02/2020 3:33 AM CDT) Case Report Dermatopathology Report Case: [id number] Authorizing Provider: Jer Winston MD Collected: 11/02/2020 03:33 AM Ordering Location: [facility] DermPath Lab Received: 11/06/2020 06:09 AM Pathologist: Magaly Flores MD Specimens: A) - Skin, right lateral forehead B) - Skin, mid upper forehead C) - Skin, left lateral cheek 4:30 PM CDT DERMATOPATHOLOGY LABORATORY Final Diagnosis Specimen A. 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 Path#[id number] B: BCCA. Path#[id number] C: BCCA. Path#[id number] 4:30 PM CDT DERMATOPATHOLOGY LABORATORY Gross Description Specimen A: Received is one formalin filled container labeled with the patient's name and designated right lateral forehead. The specimen consists of a shave biopsy measuring 8x7x2 mm. Jar 0. Specimen B: Received is one formalin filled container labeled with the patient's name and designated mid upper forehead. The specimen consists of a shave biopsy measuring 7x5x2 mm. Jar 0. Specimen C: Received is one formalin filled container labeled with the patient's name and designated left lateral cheek. The specimen consists of a shave biopsy measuring 8x7x1 mm. Jar 0. 4:30 PM CDT DERMATOPATHOLOGY LABORATORY Microscopic Description Specimen A. SKIN, right lateral forehead: Within the dermis there are aggregates of basaloid cells with a high nuclear to cytoplasmic ratio and peripheral palisading. Specimen B. SKIN, mid upper forehead: Within the dermis there are aggregates of basaloid cells with a high nuclear to cytoplasmic ratio and peripheral palisading. Specimen C. SKIN, left lateral cheek: Within the dermis there are aggregates of basaloid cells with a high nuclear to cytoplasmic ratio and peripheral palisading. 1 4:30 PM CDT DERMATOPATHOLOGY LABORATORY Disclaimer An external and internal positive and negative controls are appropriate for the histochemical, immunohistochemical and immunofluorescence stain(s) in this case (if any), except where stated explicitly. The performance characteristics of the stain(s) cited in this report were developed and its performance characteristic determined by the Dermatopathology Laboratory at [facility], directed by Dr. Santa Flores. These tests need not be, and therefore are not, approved by the [place] Food and Drug Administration. The tests are used for clinical purposes. Billing Codes Specimen Charges Stain Charges 34101 54954 25954 1 1 1 1 4:30 PM CDT DERMATOPATHOLOGY LABORATORY Embedded Images 4:30 PM CDT DERMATOPATHOLOGY LABORATORY Pathology/Cytology TISSUE SPECIMEN FROM SKIN / Unknown 11/02/2020 3:33 AM CDT 11/06/2020 6:09 AM CDT Miscellaneous samples (specimen) TISSUE SPECIMEN FROM SKIN / Unknown 11/02/2020 3:33 AM CDT 11/06/2020 6:09 AM CDT Miscellaneous samples (specimen) TISSUE SPECIMEN FROM SKIN / Unknown 11/02/2020 3:33 AM CDT 11/06/2020 6:09 AM CDT us Jer Winston MD LAB - PATHOLOGY/CYTOLOGY ORDER GREGORIO Final Result DERMATOPATHOLOGY LABORATORY [facility] - Department of Dermatology [facility] Medicine [address] [place] [address], [address] [phone] documented in this encounter Visit Diagnoses Not on filedocumented in this encounter Care Teams Intermodal Dispatcher Relationship Specialty Start Date End Date Adryan Powers MD [address] [place] [address] PCP - General 11/03/20 [place] [address] [place] [address] Orthopedic Surgery 09/30/14 [place] [address] [place] [address] Physical Medicine and Rehabilitation 10/17/20 documented as of this encounter
--- OUTSIDE RECORDS SUMMARY | 2024-10-28 10:45 | XMS_ITS | Clinical Summary ---
Author Organization [facility] Address [address] [place] [address] Phone Care Team Providers Care Ending Machine Operator Name Role Phone Lauren Boyd MD Primary Care Provi briana Allergies Active Allergy Reactions Criticality Noted Date Comments Penicillins Rash 01/25/2018 Medications methocarbamol (ROBAXIN) 500 MG Tablet Take 1 Tab by mouth 4 times daily as needed (muscle spasm). 20 Tab 01/25/2018 Active Immunizations Immunization Administration Dates Next Due TDAP Vaccine 01/25/2018 Social History Tobacco Use Types Packs/Day Years Used Date Smoking Tobacco: Never Smokeless Tobacco: Never Tobacco Cessation:Counseling Given: No Alcohol Use Standard Drinks/Week Comments No 0 (1 standard drink = 0.6 oz pur e alcohol) Sex and Gender Information Value Date Recorded Sex Assigned at Not on file Legal Sex Male 12:43 PM CDT Gender Identity Not on file Sexual Orientation Not on file Last Filed Vital Signs Vital Sign Reading Time Taken Comments Blood Pressure - - Pulse - - Temperature 36.9 C (98.4 F) 01/25/2018 12:52 PM CDT Respiratory Rate - - Oxygen Saturation - - Inhaled Oxygen Concentration - - Weight 83.9 kg (185 lb) 01/25/2018 1:14 PM CDT Height 182.9 cm (6') 01/25/2018 12:52 PM CDT Body Mass Index 25.09 01/25/2018 12:52 PM CDT Plan of Treatment Health Maintenance Due Date Last Done Comments Hepatitis C Virus (HCV) Screening 1935 Zoster Immunization (1 of 2) 12/23/1985 Respiratory Syncytial Virus (RSV) Immunization (Adult) (1 - 1-dose 75+ series) 12/23/2010 Pneumococcal Immunization (50+ years) (2 of 2 - PPSV23) 01/11/2018 01/11/2017, 02/17/2015 SARS-COV-2 Immunization (4 - season) 2023 01/26/2021, 07/11/2020, 06/20/2020 Influenza Immunization (Season Ended) 2024 01/11/2017, 11/29/2016, 01/10/2016, Additional history exists Pneumococcal Immunization Combined Discontinued 01/11/2017, 02/17/2015 DTaP/Tdap/Td Immunization Discontinued 01/25/2018 Hepatitis B Immunization Aged Out No longer eligible based on patient's age to complete this topic Human Papillomavirus (HPV) Immunization Aged Out No longer eligible based on patient's age to complete this topic Meningococcal Immunization (ACWY) Aged Out No longer eligible based on patient's age to complete this topic Rotavirus Immunization Aged Out No lo nger eligible based on patient's age [place] [address] MEDICARE [facility] Care Teams Ending Machine Operator Relationship Specialty Start Date End Date Lauren Boyd MD [address] [facility] [place] [address] PCP - General Family Medicine 01/25/18
--- OUTSIDE RECORDS SUMMARY | 2024-10-28 10:45 | XMS_ITS | Referral Summary ---
Author Organization [facility] D Address [address] [place] [address] Care Team Providers Care Maltster Name Role Phone Mikel Russell MD Unavailable [phone] Laron Doe MD Primary Care Provider Encounters Date Type Department Care Team Description 10/28/2024 9:45 AM CDT Office Visit [facility] at [address] [address] Patience Griffith, GREGG Toe infection (Primary Dx) from Last 3 Months Allergies Active Allergy Reactions Criticality Noted Date Comments Penicillins Itching Reaction: Itching, Medications dutasteride (AVODART) 0.5 mg capsule take 1 capsule (0.5MG) by oral route every day 0 09/17/19 12 Active nitroglycerin (NITROSTAT) 0.[address] 1 tablet by sublingual route once at 1st sign of attack; may repeat every 5 minutes up to 3 tabs; if norelief seek medical help 25 01/22/20 16 Active coenzyme Q10 200 mg capsule Take 1 capsule (200 mg total) by mouth daily Active vit A/vit C/vit E/zinc/copper (ICAPS AREDS ORAL) Take by mouth daily Active L. acidophilus-di g enz cmb 5 5-250 mg capsule Take by mouth Active losartan (COZAAR) 50 mg tablet Take 1 tablet (50 mg total) by mouth daily 30 tablet 11 07/23/19 23 025 Active Additional Information Patient not taking.Reported on 10/28/2024 tamsulosin (FLOMAX) 0.4 mg extended release capsule Take 1 capsule (0.4 mg total) by mouth daily 12/17/19 23 Active Myrbetriq 25 mg tablet extended release 24 hr Take 1 tablet (25 mg total) by mouth nightly at bedtime. 01/21/20 23 Active multivitamin capsule Take 1 capsule by mouth daily Active saw-vit E-sod [id number]-[id number]-p yg 160-100-100 mg-unit-mcg tablet Take by mouth Active PreviDent 5000 Dry Mouth 1.1 % paste 04/18/20 23 Active loperamide (IMODIUM) 2 mg capsule TAKE 1 CAPSULE BY MOUTH EVERY 6 HOURS NEEDED FOR LOOSE STOOLS 03/11/20 23 Active nebivoloL (BYSTOLIC) 5 mg tablet TAKE 1 TABLET(5 MG) BY MOUTH DAILY 90 tablet 3 06/24/19 24 Active Additional Information Patient not taking.Reported on 10/28/2024 sertraline (ZOLOFT) 25 mg tablet Take 1 tablet (25 mg total) by mouth daily 10/13/19 24 Active EPINEPHrine 0.3 mg/0.3 mL auto-injection syringe INJECT 1 PEN IN THE MUSCLE ONE TIME DIRECTED 11/09/19 24 Active rosuvastatin (CRESTOR) 10 mg tablet Take 1 tablet (10 mg total) by mouth daily 90 tablet 01/23/20 24 Active furosemide (LASIX) 20 mg tablet Take 1 tablet (20 mg total) by mouth every morning 03/05/20 24 Active multivitamin with folic acid (TAB-A-MICHELLE ORAL) Take by mouth Active Xarelto 20 mg tablet 07/06/19 25 Active UNABLE TO FIND BENEFIBER STICK PACKET Active acetaminophen ER (TYLENOL) 650 mg 8 hr tablet Take 1 tablet (650 mg total) by mouth every 8 (eight) hours as needed for pain Active aspirin 81 mg enteric coated tablet Take 1 tablet (81 mg total) by mouth daily Active polyethylene glycol (MIRALAX) 17 gram/dose bulk powder Take 17 g by mouth daily CLEARLAX POWDER Active lactulose solution 10 gram/15mL as needed Active omeprazole (PriLOSEC) 20 mg capsule 10/28/19 25 Active omeprazole (PriLOSEC) 40 mg capsule Take 1 capsule (40 mg total) by mouth daily 025 Discontinued Active Problems Problem Noted Date Diagnosed Date Shingles 10/28/2024 Mixed hyperlipidemia 12/31/2022 History of myocardial infarction 12/31/2022 Primary osteoarthritis of both knees 12/26/2017 Benign essential hypertension 10/13/2014 Overview (08/03/2016): Benign essential hypertension Assessment & Plan (08/19/2022 2:57 PM CDT): Blood pressure is well controlled. Continue same therapy. Continue diet and exercise. Assessment & Plan (10/31/2021 10:25 AM CDT): Blood pressure is excellent. Continue same therapy. Continue diet and exercise. Assessment & Plan (10/26/2020 10:20 AM CDT): Blood pressure is well controlled. Continue same therapy. Continue diet and exercise. Assessment & Plan (10/21/2019 11:03 AM CDT): Blood pressure is well controlled. Continue same therapy. Continue diet and exercise. Assessment & Plan (10/22/2018 11:14 AM CDT): Blood pressure is well controlled. Continue same therapy. Continue diet and exercise. Assessment & Plan (10/20/2017 1:12 PM CDT): Blood pressure is well controlled. Continue same therapy. Continue diet and exercise. Assessment & Plan (10/17/2016 10:42 AM CDT): Blood pressure is generally very well controlled. Systolic is borderline today. I asked him to monitor his blood pressure at home, and to report if elevated. Continue same therapy. Coronary arteriosclerosis in [place] artery 09/11 Overview (08/02/2016): CRJULIO CESARY ATHRSCL LEIGHANN VSSL Assessment & Plan (08/19/2022 2:57 PM CDT): Stable, without angina. I made no change in his excellent medical regimen today. I asked him to follow up with me annually, or sooner if needed. I again advised him to continue to diet and exercise regularly. Assessment & Plan (10/31/2021 10:24 AM CDT): Stable, without angina. I made no change in his excellent medical regimen today, except to resume statin therapy with Crestor 10 mg daily. I asked him to follow up with me annually, or sooner if needed. I again advised him to continue to diet and exercise regularly. Assessment & Plan (10/26/2020 10:20 AM CDT): Stable, without angina. I made no change in his excellent medical regimen today, except to resume statin therapy with Crestor 10 mg daily. I asked him to follow up with me annually, or sooner if needed. I again advised him to continue to diet and exercise regularly. Assessment & Plan (10/21/2019 11:03 AM CDT): Stable, without angina. I made no change in his excellent medical regimen today. I asked him to follow up with me annually, or sooner if needed. I again advised him to diet and exercise regularly. Assessment & Plan (10/22/2018 11:14 AM CDT): Stable, without angina. I made no change in his excellent medical regimen today, except to prescribed Lasix 20 mg daily for p.r.n. use for his edema. I asked him to follow up with me annually, or sooner if needed. I again advised him to diet and exercise regularly. Assessment & Plan (10/20/2017 1:12 PM CDT): Stable, without angina. I made no change in his excellent medical regimen today. I asked him to follow up with me annually, or sooner if needed. I again advised him to diet and exercise regularly. Assessment & Plan (10/17/2016 10:42 AM CDT): Stable, without angina. I made no change in his excellent medical regimen today. I asked him to follow up with me annually, or sooner if needed. Resolved Problems Problem Noted Date Diagnosed Date Resolved Date Nonrheumatic mitral valve regurgitation 12/31/2022 08/19/2023 Hypercholesteremia 10/17/2016 3 Assessment & Plan (08/19/2022 2:58 PM CDT): Lipids are well controlled. Continue statin therapy. Assessment & Plan (10/31/2021 10:25 AM CDT): Lipids are fairly well controlled, but not optimal. As above, I resumed Crestor 10 mg daily. Assessment & Plan (10/26/2020 10:21 AM CDT): Lipids have been well controlled, but he has been off Lipitor. As above, I resume statin therapy with Crestor 10 mg daily. Assessment & Plan (10/21/2019 11:03 AM CDT): Lipids are well controlled. Continue high-intensity statin therapy. Assessment & Plan (10/22/2018 11:14 AM CDT): Lipids are well controlled. Continue high-intensity statin therapy. Assessment & Plan (10/20/2017 1:12 PM CDT): Lipids are well controlled. Continue high-intensity statin therapy. Assessment & Plan (10/17/2016 10:43 AM CDT): Lipids are great. Continue statin therapy. Immunizations Immunization Administration Dates Next Due Influenza, Quadrivalent, Hig h Dose, Preservative Free, Intrr 01/30/2022,02/23/2021 Influenza, Quadrivalent, Spl it, Intramuscular 02/06/2019 Influenza, Trivalent, Adjuva nted, Intramuscular 02/06/2019 Influenza, Trivalent, High D ose, Split, Preservative Free, Intramuscular 01/05/2020,01/20/2018,01/11/2017,11/29,01/10/2016,01/29/2015 Influenza, Unspecified 01/05/2020 Pneumococcal Conjugate PCV 13 01/11/2017, 015 Pneumococcal Polysaccharide PPV23 07/19/2004 TD Preservative Free 07/19/2004 Tdap 01/25/2018,12/22/2014 ZOSTER Recombinant 02/23/2021 Social History Tobacco Use Types Packs/Day Years Used Date Smoking Tobacco: Former Cigarettes Q uit: 1983 Smokeless Tobacco: Never Tobacco Cessation:Counseling Given: Not Answered Alcohol Use Standard Drinks/Week Comments Yes 0 (1 standard drink = 0.6 oz pur e alcohol) Personal Safety Answer Date Recorded Have you ever been in or are you currently in a harmful physical or emotional relationship or is someone making you feel afraid or unsafe? Denies 03/04/2024 Sex and Gender Information Value Date Recorded Sex Assigned at Not on file Legal Sex Male 10:08 AM RETORT OPERATOR Gender Identity Not on file Sexual Orientation Not on file Last Filed Vital Signs Vital Sign Reading Time Taken Comments Blood Pressure 96/60 10/28/2024 9:41 AM CDT Pulse 71 10/28/2024 9:41 AM CDT Temperature 36.1 C (96.9 F) 10/28/2024 9:41 AM CDT Respiratory Rate 16 10/28/2024 9:41 AM CDT Oxygen Saturation 99% 10/28/2024 9:41 AM CDT Inhaled Oxygen Concentration - - Weight 86.6 kg (191 lb) 10/28/2024 9:41 AM CDT Height 180.3 cm (5' 11) 10/28/2024 9:41 AM CDT Body Mass Index 26.64 10/28/2024 9:41 AM CDT Plan of Treatment Not on file Insurance [address] [place] [address] [facility] FEDERAL MEDICARE [facility] Member Subscriber Plan / Payer (Ef fective 1983-Present) Name:Deep Lewis Relation to Subscriber:Self Name:Deep Lewis Payer ID:[id number] (NAIC) Group ID:[id number] Type:[facility] Address: [address] [place] [id number] Care Teams Maltster Relationship Specialty Start Date End Date Laron Doe MD [address] [place], [place] [id number] PCP - General Family Medicine 07/16/24 Mikel Russell MD [address] [facility] [address] [place] [address] Consulting Physician Cardiology 10/26/18
--- OUTSIDE RECORDS SUMMARY | 2024-10-28 10:45 | XMS_ITS | Clinical Summary ---
Author Organization [facility] D Address [address] [place] [address] Care Team Providers Care Striping Machine Operator Name Role Phone Mikel Russell MD Unavailable [phone] Laron Doe MD Primary Care Provider Allergies Active Allergy Reactions Criticality Noted Date [...] tabs; if norelief seek medical help 25 6 01/22/20 16 Active coenzyme Q10 200 mg [...] capsule by mouth daily Active saw-vit E-sod ppg-dqk-ujby-p yg 160-100-100 mg-unit-mcg tablet Take by mouth [...] elevated. Continue same therapy. Coronary arteriosclerosis in [place] artery 09/11 Overview (08/02/2016): CRNRY ATHRSCL LEIGHANN VSSL Assessment & Plan (08/19/2022 [...] CDT): Lipids are great. Continue statin therapy. Encounters Date Type Department Care Team Description 10/28/2024 9:45 AM CDT Office Visit [facility] at [address] [address] Patience Griffith, GREGG Toe infection (Primary Dx) from Last 3 Months Immunizations Immunization Administration Dates Next Due Influenza, Quadrivalent, Hig h Dose, Preservative Free, Intrr 01/30/2022,02/23/2021 Influenza, Quadrivalent, Spl it, Intramuscular 02/06/2019 Influenza, Trivalent, Adjuva nted, Intramuscular 02/06/2019 Influenza, Trivalent, High D ose, Split, Preservative Free, Intramuscular 01/05/2020,01/20/2018,01/11/2017,11/29,01/10/2016,01/29/2015 Influenza, Unspecified 01/05/2020 Pneumococcal Conjugate PCV 13 01/11/2017, 015 Pneumococcal Polysaccharide PPV23 07/19/2004 TD Preservative Free 07/19/2004 Tdap 01/25/2018,12/22/2014 ZOSTER Recombinant 02/23/2021 Surgical History Surgery Date Site/Laterality Comments CORONARY STENT PLACEMENT Coronary Stent Placement VENTRAL HERNIA REPAIR Ventral Hernia Repair HAND SURGERY Hand Surgery APPENDECTOMY Appendectomy TONSILLECTOMY EYE SURGERY eye surg Medical History Medical History Date Comments Gastroesophageal reflux disease GERD Coronary artery disease BPH (benign prostatic hyperplasia) BPH Kidney stone Inguinal hernia Hearing loss Arthritis History of heart attack 2014 Family History Medical History Relation Name Comments Other Brother hip replacement Heart failure Mother Other Mother bypass; Relation Name Status Comments Brother Father Mother Social History Tobacco Use Types Packs/Day Years [...] on file 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 Gender Identity Not on file Sexual Orientation Not on file Obstetrics History Last Filed Vital Signs Vital Sign Reading [...] 10/28/2024 9:41 AM CDT Plan of Treatment Health Maintenance Due Date Last Done Comments Depression Screening 1935 Fall Risk Assessment 1935 Hepatitis B Screening 12[birth year]23/1953 Well Visit 65+ 12/23/2000 Zoster Vaccine (2 of 2) 04/20/2021 02/23/2021 Covid-19 Vaccine (2023-2 5 season) 2023 01/26/2021, 07/11/2020, 06/20/2020 Influenza Vaccine (#1) 2024 2, 02/23/2021, 01/05/2020, Additional history exists DTaP/Tdap/Td Vaccine (3 - Td or Tdap) 01/26/2028 01/25/2018, 12/22/2014, 07/19/2004 Pneumococcal vaccine 65+ Completed 017, 02/17/2015, 07/19/[address] [place] [address] [facility] FEDERAL Member Subscriber Plan / Payer (Ef fective 1983-Present) Name:Deep Lewis Relation to Subscriber:Self Name:Deep Lewis Payer ID:[id number] (NAIC) Group ID:[id number] Type:[facility] Address: [address] [place] [id number] [place] [address] [facility] [employer] Care Teams Striping Machine Operator Relationship Specialty Start Date End Date Laron Doe MD [address] [place] [address] PCP - General Family Medicine 07/16/24 Mikel Russell MD [address] [place] [address] Consulting Physician Cardiology 10/26/18
--- OUTSIDE RECORDS SUMMARY | 2024-10-28 10:45 | XMS_ITS | Encounter Summary ---
Author Organization [facility] Healthcare Address [address] [place] [id number] Care Team Providers Care Last Waxer Name Role Phone Mikel Russell MD Unavailable [phone] Laron Doe MD Primary Care Provider Reason for Visit * Reason Comments Knee Pain Patient here for c/o right sided knee pain and inability to straighten out. 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 Patient had a calculus removed in this area 1 month ago. Patient began having significant pain this morning. Tolerates exam poorly due to pain. Concern for osteomyelitis. documented in this encounter Plan of Treatment Not on file documented as of this encounter Visit Diagnoses Diagnosis Toe infection- Primary documented in this encounter Discontinued Medications Medication Sig Discontinue Reason Start Date End Da te omeprazole (PriLOSEC) 40 mg capsule Take 1 capsule (40 mg total) by mouth daily 10/28/2024 documented as of this encounter Historical Medications * This list may reflect changes made after this encounter. Medication Sig Dispense Quantity Refills Last Filled Start D ate End Date omeprazole (PriLOSEC) 20 mg capsule 10/27/2024 added in this encounter Care Teams Last Waxer Relationship Specialty Start Date End Date Laron Doe MD [address] [place] [address] PCP - General Family Medicine 07/16/24 Mikel Russell MD [address] [facility] [address] [place] [address] Consulting Physician Cardiology 10/26/18 documented as of this encounter
--- NOTE | 2024-10-28 12:09 | ED.SKABFB ---
HPI - Skin/Abscess/Foreign Bdy General Chief complaint: Skin/Abscess/Foreign Body Stated complaint: toe infection Time Seen by Provider: 10/28/24 12:07 Source: patient Mode of arrival: ambulatory Limitations: no limitations History of Present Illness HPI narrative: 88 YEARS OLD WHITE MALE CAME TO THE ED PAIN AND INJURY TO THE RIGHT 3RD TOE. PATIENT WAS SEEN BY CHIEF INTERNAL AUDITOR 4 WEEKS AGO WHO DID REMOVE SOME CALLUS SUBSEQUENTLY PATIENT STARTED HAVING TROUBLE AT THAT TOE.. PATIENT IS NOT DIABETIC, DENIED ANY TRAUMA. PATIENT DENIES ANY FEVER OR CHILLS OR NAUSEA OR VOMITING. Related Data Home Medications ?Medication ?Instructions ?Recorded ?Confirmed ?Last Taken ?Type dutasteride 0.5 mg capsule 0.5 mg PO HS 05/24/19 10/07/24 01/15/20 History rosuvastatin 10 mg tablet 10 mg PO DAILY 03/11/23 10/07/24 Unknown History omeprazole 40 mg capsule,delayed 20 mg PO DAILY 10/07/24 10/07/24 Unknown History release Lactobacillus acidophilus 1 tablet PO DAILY 10/28/24 10/28/24 Unknown History (Acidophilus chewable tablet) furosemide 20 mg tablet 20 mg PO QAM edema 10/28/24 10/28/24 Unknown History losartan 50 mg tablet 50 mg PO DAILY 10/28/24 10/28/24 Unknown History mirabegron 25 mg tablet,extended 25 mg PO HS 10/28/24 10/28/24 Unknown History release 24 hr nebivolol 5 mg tablet (Bystolic) 5 mg PO DAILY 10/28/24 10/28/24 Unknown History Allergies Allergy/AdvReac Type Severity Reaction Status Date / Time Penicillins Allergy Unknown Unknown Verified 10/28/24 10:54 Review of Systems Review of Systems: All systems reviewed & are unremarkable except as noted in HPI and below PMFSH Past Medical History Medical History Right anterior shoulder pain Sinus congestion Right foot pain Right anterior knee pain Primary osteoarthritis, right shoulder Hyperlipidemia LDL goal <100 Sting from hornet, wasp, or bee Foreign body in left ear, initial encounter Benign hypertension Small bowel obstruction Hyperlipidemia Primary hypertension Osteoarthritis of both knees Hammer toe of second toe of right foot Right anterior shoulder pain (~08/2018) GERD (gastroesophageal reflux disease) Coronary artery disease BPH (benign prostatic hyperplasia) Right inguinal hernia not repaired Dupuytrens contracture Surgical History Surgical History History of strabismus surgery bilateral History of heart artery stent (~2010) 2 stents History of umbilical hernia repair Hx of tonsillectomy History of appendectomy Hx of cataract surgery History of vasectomy History of hand surgery Family History Family History (Updated 10/28/24 @ 18:01 by Netta Pino RN [facility]) Father , at 78 years old Hx of ulcer disease Son Drug abuse Mother CHF (congestive heart failure) Social History Social History Social History: Smoking packs per day: 1 Smoking cigarettes per day: 20.0 Years smoked: 22 Smoking pack-years: 22.00 Smoking status: Former smoker Second hand tobacco smoke exposure: No Alcohol intake: never Alcohol use details: patient only rarely drinks alcohol and small amounts. Substance use: never Substance use type: does not use Do You Feel Safe in your Home?: Yes Lack of Transportation: No Lack of Food: Never True Current Housing: I Have Housing Concerned About Future Housing: No Difficulty Paying Gas/Electric Bills: No Difficulty Paying for Meds: No Currently Unemployed: YES Education: Don't Know Difficulty w/ Childcare or Family Care: No Living arrangements: with family Additional living arrangements comments: He lives with his of 63 years. He is independent in activities of daily living. They have 3 children. His son lives in [place]. He has a daughter who lives in [place] and another daughter that lives in [place]. 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 He traveled internationally for his job and lived in [place] for many years, [place] for 10-15 years, and many other places. Gender identity (if verbalized by the patient): Male Sexual Orientation (if Verbalized by the Patient): Straight or Heterosexual Spiritual care concerns: No Exam Narrative: GENERAL APPEARANCE: WELL-DEVELOPED, WELL-NOURISHED SKIN: NORMAL COLOR HEAD: NORMOCEPHALIC, NONTRAUMATIC EYES: CLEAR CONJUNCTIVA ENT: OROPHARYNX NORMAL, EARS NORMAL, NOSE NORMAL NECK: SUPPLE, NONTENDER CHEST AND RESPIRATORY: AIRWAY PATENT, NO RESPIRATORY DISTRESS, NO ACCESSORY MUSCLE USE HEART: REGULAR RATE/RHYTHM ABDOMEN: SOFT, NONTENDER, NO ORGANOMEGALY, QUIET BOWEL SOUNDS VASCULAR: NORMAL PERIPHERAL PULSES, NORMAL CAPILLARY REFILL. MUSCULOSKELETAL: RIGHT 3RD TO SHOWED AN OLD WOUND AT THE TIP OF THE TOE, NO DISCHARGE, SLIGHT ERYTHEMA, NO WARMTH, NO DEFORMITY NEUROLOGIC: ALERT AND ORIENTED ?3, ACTIVITIES SPECIALIST IS NORMAL TESTED, NO GROSS MOTOR DEFICIT Course Vital Signs Vital signs: Vital Signs Temperature 36.6 C 10/28/24 10:46 Pulse Rate 66 10/28/24 10:46 Respiratory Rate 12 10/28/24 10:46 Blood Pressure 110/49 L 10/28/24 10:46 Pulse Oximetry 97 10/28/24 10:46 Oxygen Delivery Room Air 10/28/24 10:46 Temperature 36.6 C 10/28/24 10:46 Pulse Rate 67 10/28/24 12:55 Respiratory Rate 17 10/28/24 12:55 Blood Pressure 122/67 10/28/24 12:55 Pulse Oximetry 100 10/28/24 12:55 Oxygen Delivery Room Air 10/28/24 10:46 MDM - Skin/Abscess/Foreign Bdy MDM Narrative Medical decision making narrative: PATIENT PRESENTS WITH RIGHT 3RD TOE PAIN AND INJURY VITAL SIGNS ARE STABLE PHYSICAL EXAMINATION SHOWING A HEALING WOUND, POSSIBLE INFECTED AT THE TIP OF THE RIGHT 3RD TOE. DIFFERENTIAL DIAGNOSIS INFECTED WOUND, BLOOD WORKUP TODAY INCLUDES CBC, CMP, BLOOD CULTURE AND COAGS SHOWED WBC 11.2, C-REACTIVE PROTEIN 3.1 X-RAY OF THE RIGHT 3RD TOE SHOWED FINDING CONSISTENT WITH OSTEOMYELITIS DIAGNOSIS INFECTED WOUND, OSTEOMYELITIS OF THE RIGHT 3RD TOE ADMIT TO HOSPITALIST Differential Diagnosis Differential diagnosis: Likely other ( ABOVE) Medical Records Attestation: I reviewed the patient's medical records. Lab Data Attestation: I reviewed the patient's lab results. 10/28/24 12:51 10/28/24 12:51 Labs: Lab Results 10/28/24 Range/Units 12:51 WBC 11.2 H (4.5-10.0) K/mm3 RBC 4.49 L (4.6-6.20) M/mm3 Hgb 14.0 (14.0-18.0) g/dL Hct 43.5 (42.0-52.0) % MCV 96.9 (80-100) fl MCH 31.2 (26-34) pg MCHC 32.2 (32-36) g/dl RDW 14.3 (11.5-14.5) % Plt Count 236 (150-375) k/mm3 MPV 9.5 (7.4-10.4) fl Immature Gran % (Auto) 0.3 (0-0.5) % Neut % (Auto) 71.6 (45.5-73.1) % Lymph % (Auto) 18.3 (18.3-44.2) % Wetzel % (Auto) 8.5 (2.6-8.5) % Eos % (Auto) 1.0 (0-4.4) % Baso % (Auto) 0.3 (0.2-1.2) % Lymph # (Auto) 2.04 (0.9-3.2) K/mm3 Wetzel # (Auto) 1.0 H (0.1-0.6) K/mm3 Eos # (Auto) 0.1 (0-0.3) K/mm3 Baso # (Auto) 0.0 (0.0-0.1) K/mm3 Abs Immat Gran (auto) 0.03 (0.00-0.031) K/mm3 Absolute Neuts (auto) 8.0 H (1.3-6.7) K/mm3 Absolute Nucleated RBC 0.000 (0.0-0.012) K/mm3 Nucleated RBC % 0.0 (0.0-0.2) % Sodium 138 (137-145) mmol/L Potassium 4.1 (3.4-5.0) mmol/L Chloride 104 (98-107) mmol/L Carbon Dioxide 26 (22-30) mmol/L Anion Gap 8 (4-12) mmol/L BUN 21 H (9-20) mg/dL Creatinine 0.88 (0.7-1.3) mg/dL Estim Creat Clear Calc 54 ml/min Estimated GFR > 60 (59 - ) Glucose 100 (65-110) mg/dL Calcium 8.8 (8.4-10.2) mg/dL Total Bilirubin 1.1 (0.2-1.3) mg/dL AST 40 (17-59) U/L ALT 21 (6-50) U/L Alkaline Phosphatase 67 (38-126) U/L C-Reactive Protein 3.1 H (<1.0) mg/dL Total Protein 7.3 (6.3-8.2) g/dL Albumin 4.1 (3.5-5.1) g/dL Critical Care Time Critical Care Time Critical Care Time: No Discharge Plan Discharge Clinical Impression: 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 Patient Disposition: Still a Patient Condition: Stable Patient Language: Burmese Prescriptions: No Action acetaminophen [Tylenol Arthritis Pain] 650 mg tablet extended release 650 mg PO Q8H PRN (Reason: pain) Qty: 90 0RF Benefiber Sugar Free (dextrin) 3 gram/4 gram powder in packet 3 g PO BID Qty: 28 11RF Rx Instructions: mix into at least 4 oz water or juice before administering polyethylene glycol 3350 [Miralax] 17 gram powder in packet 17 g PO DAILY Qty: 30 11RF lactulose 10 gram/15 mL solution 10 g PO DAILY PRN (Reason: constipation) Qty: 946 3RF furosemide 20 mg tablet 20 mg PO QAM PRN (Reason: edema) Qty: 5 0RF omeprazole 40 mg capsule,delayed release(DR/EC) 20 mg PO DAILY Rx Instructions: take omeprazole 40 mg x 6 weeks then decrease to 20 mg daily dutasteride 0.5 mg capsule 0.5 mg PO HS Rx Instructions: take 1 capsule by oral route every day rosuvastatin 10 mg tablet 10 mg PO DAILY sertraline 25 mg tablet 25 mg PO DAILY Qty: 30 2RF tamsulosin 0.4 mg capsule See Rx Instructions .ROUTE .COMPLEX Qty: 90 1RF Dose Instruction: TAKE 1 CAPSULE BY MOUTH EVERY DAY AT BEDTIME Rx Instructions: TAKE 1 CAPSULE BY MOUTH EVERY DAY AT BEDTIME Bystolic 5 mg tablet 5 mg PO DAILY Qty: 90 1RF Rx Instructions: take 1/2 tablet by oral route every day coenzyme Q10 [Q-Sorb Co Q-10] 200 mg capsule See Rx Instructions .ROUTE .COMPLEX Qty: 35 2RF Dose Instruction: TAKE ONE CAPSULE BY MOUTH EVERY MORNING Rx Instructions: TAKE ONE CAPSULE BY MOUTH EVERY MORNING multivitamin with folic acid [Tab-A-Magaly] 400 mcg tablet See Rx Instructions .ROUTE .COMPLEX Qty: 90 2RF Dose Instruction: TAKE ONE TABLET BY MOUTH EVERY MORNING Rx Instructions: TAKE ONE TABLET BY MOUTH EVERY MORNING aspirin 81 mg tablet,delayed release (DR/EC) 81 mg PO DAILY Qty: 90 1RF Xarelto 20 mg tablet 20 mg PO DAILY Qty: 30 5RF Rx Instructions: must administer with evening meal start after he finished loading dose for 3 weeks fluticasone propionate 50 mcg/actuation spray,suspension See Rx Instructions .ROUTE .COMPLEX Qty: 16 0RF Dose Instruction: INSTILL 1 SPRAY IN EACH NOSTRIL EVERY TWELVE HOURS NEEDED FOR NASAL CONGESTION Rx Instructions: INSTILL 1 SPRAY IN EACH NOSTRIL EVERY TWELVE HOURS NEEDED FOR NASAL CONGESTION Follow-up/Referrals: Laron Doe MD [Primary Care Provider] -
--- OUTSIDE RECORDS SUMMARY | 2024-10-28 12:13 | XMS_ITS | Referral Summary ---
Author Organization [facility] D Address [address] [place] [address] Care Team Providers Care Forestry Adviser Name Role Phone Mikel Russell MD Unavailable [phone] Laron Doe MD Primary Care Provider Encounters Date Type Department Care Team Description 10/28/2024 9:45 AM CDT Office Visit [facility] Con[facility]ient Care at [address] [address] Patience Griffith, GREGG Toe infection [...] capsule by mouth daily Active saw-vit E-sod fbp-skz-ssff-p yg 160-100-100 mg-unit-mcg tablet Take by mouth [...] elevated. Continue same therapy. 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 Gender Identity Not on file Sexual Orientation [...] Not on file Insurance [address] [place] [address] [facility] FEDERAL MEDICARE [facility] Member Subscriber Plan / Payer (Ef fective 1983-Present) Name:Deep Lewis Relation to Subscriber:Self Name:Deep Lewis Payer ID:[id number] (NAIC) Group ID:[id number] Type:[facility] Address: [address] [place] [id number] Care Teams Forestry Adviser Relationship Specialty Start Date End Date Laron Doe MD [address] [place], [place] [id number] PCP - General Family Medicine 07/16/24 Mikel Russell MD [address] [facility] [address] [place] [address] Consulting Physician Cardiology 10/26/18
--- OUTSIDE RECORDS SUMMARY | 2024-10-28 12:13 | XMS_ITS | Encounter Summary ---
Author Organization [facility] Healthcare Address [address] [place] [address] Care Team Providers Care Teacher Lip Reading Name Role Phone Mikel Russell MD Unavailable [phone] Laron Doe MD Primary Care Provider Reason for Visit * Reason Comments Knee Pain Patient here for c/o right sided knee pain and inability to straighten out. 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
--- OUTSIDE RECORDS SUMMARY | 2024-10-28 12:13 | XMS_ITS | Clinical Summary ---
Author Organization [facility] D Address [address] [place] [address] Care Team Providers Care Marketing Automation Analyst Name Role Phone Mikel Russell MD Unavailable Laron Doe MD Primary Care Provider Allergies [...] capsule by mouth daily Active saw-vit E-sod mhm-tpb-nbzm-p yg 160-100-100 mg-unit-mcg tablet Take by mouth [...] elevated. Continue same therapy. 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 Gender Identity Not on file Sexual Orientation [...] Completed 017, 02/17/2015, 07/19/[address] [place] [address] [facility] FEDERAL Member Subscriber Plan / Payer (Ef fective 1983-Present) Name:Deep Lewis Relation to Subscriber:Self Name:Deep Lewis Payer ID:[id number] (NAIC) Group ID:[id number] Type:[facility] Address: [address] [place] [id number] [place] [address] [facility] FEDERAL Care Teams Marketing Automation Analyst Relationship Specialty Start Date End Date Laron Doe MD [address] [place] [address] PCP - General Family Medicine 07/16/24 Mikel Russell MD [address] [place] [address] Consulting Physician Cardiology 10/26/18
--- OUTSIDE RECORDS SUMMARY | 2024-10-28 12:13 | XMS_ITS | Clinical Summary ---
Author Organization [facility] Address [address] [place] [address] Care Team Providers Care Doctor Of Chiropractic Name Role Phone Rama Turner MD Primary Care Provider [phone] Allergies Active Allergy Reactions Criticality Noted Date [...] Comments Blood Pressure 158/78 03/25/2024 12:10 AM STRATEGIC CONSULTANT Pulse 86 03/24/2024 9:52 PM STRATEGIC CONSULTANT Temperature 37.1 C (98.7 F) 03/24/2024 9:52 PM STRATEGIC CONSULTANT Respiratory Rate 16 03/24/2024 9:52 PM STRATEGIC CONSULTANT Oxygen Saturation 98% 03/24/2024 9:52 PM STRATEGIC CONSULTANT Inhaled Oxygen Concentration - - Weight 86.2 kg (190 lb) 03/24/2024 9:52 PM STRATEGIC CONSULTANT Height 180.3 cm (5' 11) 03/24/2024 9:52 PM STRATEGIC CONSULTANT Body Mass Index 26.5 03/24/2024 9:52 PM STRATEGIC CONSULTANT Plan of Treatment Health Maintenance Due Date [...] patient's age to complete [place] [address] [facility] Care Teams Doctor Of Chiropractic Relationship Specialty Start Date End Date Rama Turner MD [address] [facility] [address] [place] [address] PCP - General FAMILY PRACTICE 03/24/24
--- OUTSIDE RECORDS SUMMARY | 2024-10-28 12:13 | XMS_ITS | Clinical Summary ---
Author Organization [facility] Address [address] [place] [address] Phone Care Team Providers Care Fire Manager Name Role Phone Lauren Boyd MD Primary [...] season) 2023 01/26/2021, 07/11/2020, 06/20/2020 Influenza Immunization (#1) 12/27/202412/27, 11/29/2016, 01/10/2016, Additional history exists Pneumococcal Immunization [...] patient's age [place] [address] MEDICARE [facility] Care Teams Fire Manager Relationship Specialty Start Date End Date Lauren Boyd MD [address] [facility] [place] [address] PCP - General Family Medicine 01/25/18
--- OUTSIDE RECORDS SUMMARY | 2024-10-28 12:13 | XMS_ITS | Encounter Summary ---
Author Organization [facility] Health Address [address] [facility] [place] [address] Care Team Providers Care Electrocardiograph Repairer Name Role Phone Gabo May MD Unavailable [phone] Fady Montague MD Unavailable [phone] Adryan Powers MD Primary Care Provider [phone] Encounter Details Date Type Department Care Team (Late st Contact Info) Description 11/06/2020 Lab Requisition [facility] [address] [facility] [place] [address] Jer Winston MD [address] [place] [address] Social History Tobacco Use Types [...] AM CDT) Case Report Dermatopathology Report Case: [id number] Authorizing Provider: Jer Winston MD Collected: 11/02/2020 03:33 AM Ordering Location: [facility] Received: 11/06/2020 06:09 AM Pathologist: [...] at 1630 CDT Clinical History A: BCCA. Path#[id number] B: BCCA. Path#[id number] C: BCCA. Path#[id number] 4:30 PM CDT DERMATOPATHOLOGY LABORATORY Gross Description [...] characteristic determined by the Dermatopathology Laboratory at [facility], directed by Dr. Santa Flores. These tests need not be, and therefore are not, approved by the [place] Food and Drug Administration. The tests are used for clinical purposes. Billing Codes Specimen Charges Stain Charges 75056 46043 50441 1 1 1 1 4:30 PM CDT [...] PATHOLOGY/CYTOLOGY ORDER GREGORIO Final Result DERMATOPATHOLOGY LABORATORY [facility] - Department of Dermatology [facility] Medicine [address] [place] [address], [address] [phone] documented in this encounter Visit Diagnoses Not on filedocumented in this encounter Care Teams Electrocardiograph Repairer Relationship Specialty Start Date End Date Adryan Powers MD [address] [place] [address] PCP - General 11/03/20 [place] [address] [place] [address] Orthopedic Surgery 09/30/14 [place] [address] [place] [address] Physical Medicine and Rehabilitation 10/17/20 documented as of this encounter
--- OUTSIDE RECORDS SUMMARY | 2024-10-28 12:13 | XMS_ITS | Clinical Summary ---
Author Organization [facility] Address [address] [facility] [place] [address] Care Team Providers Care Refrigeration Person Name Role Phone Gabo May MD Unavailable [phone] Fady Montague MD Unavailable [phone] Adryan Powers MD Primary Care Provider [phone] Source Comments [facility],non-owned Affiliates and Associated Physician Practices is amultiple site organization consisting of ambulatory clinics and hospital sitesin [place], [place], [place] and [place]. This disclosure is being madepursuant to the Care Everywhere program and may not contain all information available regarding this patient. Last updated 18.[facility] Allergies Active Allergy Reactions Criticality [...] Continue diet and exercise. Coronary arteriosclerosis in [place] artery 09/11 Overview (10/04/2020): LEXI BRYANT Last [...] this topic Insurance ANTHEM ANTHEM Care Teams Refrigeration Person Relationship Specialty Start Date End Date Adryan Powers MD [address] [place] [address] PCP - General 11/03/20 [place] [address] [place] [address] Orthopedic Surgery 09/30/14 [place] [address] [place] [address] Physical Medicine and Rehabilitation 10/17/20
--- OUTSIDE RECORDS SUMMARY | 2024-10-28 12:13 | XMS_ITS | Encounter Summary ---
Author Organization [facility] Health Address [address] [place] [address] Care Team Providers Care Group Home Paraprofessional Name Role Phone Gabo May MD Unavailable [phone] Adryan Powers MD Primary Care Provider [phone] Fady Montague MD Unavailable [phone] Rama Turner MD Primary Care Provider U navailable Adryan Powers MD Primary Care Provider [phone] Encounter Details Date Type Department Care Team (Late st Contact Info) Description 10/09/2017 Lab Requisition [facility] Care D[facility] Lab [address] [facility] [place] [phone] Deep Salvador MD [address] [place] [address] Social History Tobacco Use Types [...] AM CDT) Case Report Dermatopathology Report Case: [id number] Authorizing Provider: Deep Salvador MD Collected: 10/08/2017 [...] specimen consists of a shave biopsy measuring [id number]. Jar 0. Specimen B: Received is one formalin filled container labeled with the patient's name and designated mid sternum above manubrium. The specimen consists of a shave biopsy measuring [id number]. Jar 0. Specimen C: Received is one formalin filled container labeled with the patient's name and designated left preauricle skin anterior edge of ED&C site. The specimen consists of a shave biopsy (2 pieces) measuring [id number] & [id number]. Jar 0. 8 1:16 PM CDT DERMATOPATHOLOGY [...] characteristic determined by the Dermatopathology Laboratory at [facility]. These tests need not be, and therefore are not, approved by the [place] Food and Drug Administration. The tests are used for clinical purposes. Billing Codes Specimen Charges Stain Charges 19075 [id number] [id number] 1 1 1 8 1:16 PM CDT [...] PATHOLOGY/CYTOLOGY ORD ERABLES Final Result DERMATOPATHOLOGY LABORATORY [facility] - Department of Dermatology [address] [facility], 5th Floor Lab [address] [phone] documented in this encounter Visit Diagnoses Not on filedocumented in this encounter Care Teams Group Home Paraprofessional Relationship Specialty Start Date End Date Adryan Powers MD [address] [place] [address] [place] [address] PCP - General Family Medicine 09/30/14 10/16/20 Rama Turner MD [address] [place] [address] PCP - General Family Medicine 10/17/20 11/02/20 Adryan Powers MD [address] [place] [address] PCP - General 11/03/20 [place] [address] [place] [address] Orthopedic Surgery 09/30/14 [place] [address] [place] [address] Physical Medicine and Rehabilitation 10/17/20 documented as of this encounter
[2024-10-28 13:00] LABS: Hematocrit 43.5 % (42.0-52.0); Hemoglobin 14.0 g/dL (14.0-18.0); Immature Granulocyte Percent A 0.3 % (0-0.5); Lymphocytes Absolute Auto 2.04 K/mm3 (0.9-3.2); Mean Corpuscular HGB Conc 32.2 g/dl (32-36); Mean Corpuscular Hemoglobin 31.2 pg (26-34); Mean Corpuscular Volume 96.9 fl (80-100); Nucleated Red Blood Cells Absolute Auto 0.000 K/mm3 (0.0-0.012); Nucleated Red Blood Cells Perc 0.0 % (0.0-0.2); Platelet Count Result 236 k/mm3 (150-375); Red Blood Count 4.49 M/mm3 (4.6-6.20); White Blood Count 11.2 K/mm3 (4.5-10.0)
[2024-10-28 13:13] LABS: Alanine Aminotransferase 21 U/L (6-50); Albumin Level 4.1 g/dL (3.5-5.1); Alkaline Phosphatase 67 U/L (38-126); Anion Gap 8 mmol/L (4-12); Aspartate Amino Transferase 40 U/L (17-59); Bilirubin,Total 1.1 mg/dL (0.2-1.3); Blood Urea Nitrogen 21 mg/dL (9-20); CRP 3.1 mg/dL (<1.0); Calcium 8.8 mg/dL (8.4-10.2); Carbon Dioxide 26 mmol/L (22-30); Chloride 104 mmol/L (98-107); Estimated CRCL calculation 54 ml/min; Estimated Glomerular Filt Rate > 60; Glucose 100 mg/dL (65-110); Potassium 4.1 mmol/L (3.4-5.0); Sodium 138 mmol/L (137-145); Total Protein 7.3 g/dL (6.3-8.2)
[2024-10-28] MEDS: VANCOMYCIN 1,250 MG/NS 250 ML 1,250 MG/250 ML BAG 166.67 MG IVPB (14:22)
--- NOTE | 2024-10-28 15:14 | P.HP_ITS ---
H&P: HPI History of Present Illness Date/Time: 10/28/24 15:14 Chief Complaint: Nonhealing wound Narrative: A year old male past medical history of CAD, BPH, hypertension, hyperlipidemia presents the hospital nonhealing wound. Patient states that he had a callus on his toe which he had seen Podiatry for with removal of callus. Toe is now swollen and painful. Patient denies trauma to the toe. Patient states he feels well overall. Denies fevers chills nausea vomiting. In the ED patient has leukocytosis 11.2, C reactive protein of 3.1, x-ray of the toe shows Erosion at the tuft of the right third distal phalanx consistent with osteomyelitis. Patient started on vancomycin and azactam. Blood cultures pending. Surgery consulted for possible amputation. Review of Systems Review of Systems: 12 systems were reviewed and are negativ e except for as per HPI. [facility] Past Medical History Medical History Right anterior shoulder pain Sinus congestion Right foot pain Right anterior knee pain Primary osteoarthritis, right shoulder Hyperlipidemia LDL goal <100 Sting from hornet, wasp, or bee Foreign body in left ear, initial encounter Benign hypertension Small bowel obstruction Hyperlipidemia Primary hypertension Osteoarthritis of both knees Hammer toe of second toe of right foot Right anterior shoulder pain (~08/2018) GERD (gastroesophageal reflux disease) Coronary artery disease BPH (benign prostatic hyperplasia) Right inguinal hernia not repaired Dupuytrens contracture Surgical History Surgical History History of strabismus surgery bilateral History of heart artery stent (~2010) 2 stents History of umbilical hernia repair Hx of tonsillectomy History of appendectomy Hx of cataract surgery History of vasectomy History of hand surgery Family History Family History (Updated 10/28/24 @ 18:01 by NICKI Boo) Father , at 78 years old Hx of ulcer disease Son Drug abuse Mother CHF (congestive heart failure) Social History Social History Social History: Smoking packs per day: 1 Smoking cigarettes per day: 20.0 Years smoked: 22 Smoking pack-years: 22.00 Smoking status: Former smoker Second hand tobacco smoke exposure: No Alcohol intake: never Alcohol use details: patient only rarely drinks alcohol and small amounts. Substance use: never Substance use type: does not use Do You Feel Safe in your Home?: Yes Lack of Transportation: No Lack of Food: Never True Current Housing: I Have Housing Concerned About Future Housing: No Difficulty Paying Gas/Electric Bills: No Difficulty Paying for Meds: No Currently Unemployed: YES Education: Don't Know Difficulty w/ Childcare or Family Care: No Living arrangements: with family Additional living arrangements comments: He lives with his of 63 years. He is independent in activities of daily living. They have 3 children. His son lives in [place]. He has a daughter who lives in [place] and another daughter that lives in [place]. 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 He traveled internationally for his job and lived in [place] for many years, [place] for 10-15 years, and many other places. Gender identity (if verbalized by the patient): Male Sexual Orientation (if Verbalized by the Patient): Straight or Heterosexual Spiritual care concerns: No Meds Home Medications and Allergies Home Medications ?Medication ?Instructions ?Recorded ?Confirmed ?Type dutasteride 0.5 mg capsule 0.5 mg PO HS 05/24/19 10/28/24 History rosuvastatin 10 mg tablet 10 mg PO DAILY 03/11/23 10/28/24 History sertraline 25 mg tablet 25 mg PO DAILY #30 tabs 10/13/23 10/28/24 Rx acetaminophen 650 mg 650 mg PO Q8H PRN pain #90 tabs 02/10/24 10/28/24 Rx tablet,extended release (Tylenol Arthritis Pain) coenzyme Q10 200 mg capsule See Rx Instructions .Route 04/19/24 10/28/24 Rx (Q-Sorb Co Q-10) .COMPLEX #35 caps tamsulosin 0.4 mg capsule See Rx Instructions .Route 04/19/24 10/28/24 Rx .COMPLEX #90 caps lactulose 10 gram/15 mL oral 10 g (15 mL) PO DAILY PRN 04/30/24 10/28/24 Rx solution constipation #946 mL polyethylene glycol 3350 17 gram 17 g PO DAILY #30 ea 04/30/24 10/28/24 Rx oral powder packet (Miralax) wheat dextrin 3 gram/4 gram oral 3 g PO BID #28 ea 04/30/24 10/28/24 Rx powder packet (Benefiber Sugar Free (dextrin)) aspirin 81 mg tablet,delayed 81 mg PO DAILY #90 tabs 06/18/24 10/28/24 Rx release multivitamin with folic acid 400 See Rx Instructions .Route 06/18/24 10/28/24 Rx mcg tablet (Tab-A-Magaly) .COMPLEX #90 caps rivaroxaban 20 mg tablet (Xarelto) 20 mg PO DAILY #30 tabs 09/23/24 10/28/24 Rx fluticasone propionate 50 See Rx Instructions .Route 09/28/24 10/28/24 Rx mcg/actuation nasal .COMPLEX #16 grams spray,suspension omeprazole 40 mg capsule,delayed 20 mg PO DAILY 10/07/24 10/28/24 History release Lactobacillus acidophilus 1 tablet PO DAILY 10/28/24 10/28/24 History (Acidophilus chewable tablet) furosemide 20 mg tablet 20 mg PO QAM edema 10/28/24 10/28/24 History losartan 50 mg tablet 50 mg PO DAILY 10/28/24 10/28/24 History mirabegron 25 mg tablet,extended 25 mg PO HS 10/28/24 10/28/24 History release 24 hr nebivolol 5 mg tablet (Bystolic) 5 mg PO DAILY 10/28/24 10/28/24 History Allergies Allergy/AdvReac Type Severity Reaction Status Date / Time Penicillins Allergy Unknown Unknown Verified 10/28/24 10:54 Vital Signs Vital Signs - 24 hr 10/28/24 10:46 10/28/24 11:00 10/28/24 11:30 Temperature 98 F Pulse Rate 66 65 64 Respiratory Rate 12 16 16 Blood Pressure 110/49 L 103/48 L 103/49 L Pulse Oximetry 97 95 95 Oxygen Delivery Room Air 10/28/24 12:00 10/28/24 12:55 Temperature Pulse Rate 66 67 Respiratory Rate 17 17 Blood Pressure 118/52 L 122/67 Pulse Oximetry 98 100 Oxygen Delivery Exam Narrative: General: well appearing, appears stated age. HEENT: normocephalic, atraumatic. Mucous membranes moist. EOMI, PERRLA, bilateral sclera anicteric, no conjunctival injection. Neck supple without JVD, lymphadenopathy, or bruit. Respiratory: clear to ascultation bilaterally. No rales/rhonic/wheezes. Cardiovascular: Regular rate and rhythm, normal S1-S2 upon ascultation. No murmurs, rubs, or clicks. PMI is nondisplaced, capillary refill less than 3 s econd. Abdomen: Soft, round, no pulsatile masses, nondistended and nontender. No rebound, no guarding. No CVA tenderness, no hepatosplenomegaly. Bowel sounds present to all four quadrants. No high pitch or tinkling sounds, resonant to percussion. Extremities: No cyanosis, clubbing, or edema present. Pulses are palpable 2/2. Right 3rd toe with necrotic tip, swelling erythema Neuro: Alert and orientated x 4. PERRLA. Cranial nerves 2-12 intact without focal deficit. Skin: Warm, dry, and intact, without rash, erythema, or lesion. Psych: pleasant, cooperative, normal speech, normal affect, no hallucinations, no dysarthia H&P: Results Labs Labs: Short CBC 10/28/24 Range/Units 12:51 WBC 11.2 H (4.5-10.0) K/mm3 Hgb 14.0 (14.0-18.0) g/dL Hct 43.5 (42.0-52.0) % Plt Count 236 (150-375) k/mm3 BMP 10/28/24 12:51 Sodium 138 Potassium 4.1 Chloride 104 Carbon Dioxide 26 BUN 21 H Creatinine 0.88 Glucose 100 Calcium 8.8 Liver Function 10/28/24 Range/Units 12:51 Total Bilirubin 1.1 (0.2-1.3) mg/dL AST 40 (17-59) U/L ALT 21 (6-50) U/L Alkaline Phosphatase 67 (38-126) U/L Albumin 4.1 (3.5-5.1) g/dL Assessment and Plan Assessment and plan (1) 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: Code(s): M86.9 - Osteomyelitis, unspecified Status: Acute Assessment and Plan: Surgery consulted for possible amputation IV antibiotics vancomycin and azactam IVF for hydration Blood cultures pending Echocardiogram pending EKG pending Chest x-ray workup pending Patient has no history of diabetes (2) Primary hypertension: Code(s): I10 - Essential (primary) hypertension Status: Acute Assessment and Plan: Okay for home antihypertensives (3) Coronary artery disease: Code(s): I25.10 - Atherosclerotic heart disease of [place] coronary artery without angina pectoris Status: Acute Assessment and Plan: Continue statin, Bystolic, losartan and aspirin Currently holding Xarelto incase of OR (4) Hyperlipidemia: Qualifiers: Hyperlipidemia type: unspecified Qualified Code(s): E78.5 - Hyperlipidemia, unspecified Code(s): E78.5 - Hyperlipidemia, unspecified Status: Acute Assessment and Plan: Continue statin (5) Chronic constipation: Code(s): K59.09 - Other constipation Status: Acute Assessment and Plan: Senna (6) Lower extremity edema: Code(s): R60.0 - Localized edema Status: Acute Assessment and Plan: Patient states that he has been on Lasix for the last month for his lower extremity swelling neuro improvement, patient does not know if CHF Echocardiogram pending Continue home Lasix at this time may need IV Quality VTE Prophylaxis VTE prophylaxis: mechanical ordered and pharmacologic ordered Hospitalist MIPS Advance Care Plan I have confirmed that the patient's Advanced Care Plan is present, code status is documented, or surrogate decision maker is listed in patient medical record.: Yes Medication Reconciliation I have utilized all available resources to obtain, update and review the patients current medications (includes all prescriptions, OTC, herbals, cannabis, and nutritional supplements).: Yes
--- NOTE | 2024-10-28 15:24 | PC.NURSE ---
heart healthly diet orded
[2024-10-28] MEDS: AZTREONAM 1 GM/NS 50 ML 1 GM/50 ML BAG IVPB ×2 (15:56→22:00)
[2024-10-28] MEDS: SODIUM CHLORIDE 0.9% IV 1,000 ML 100 ML IV CONT (16:39)
[2024-10-28] MEDS: VANCOMYCIN 1,000 MG/NS 250 ML 1,000 MG/250 ML BAG 250 MG IVPB (16:41)
--- NOTE | 2024-10-28 17:46 | ADMGEN ---
This patient, Deep Lewis, was admitted to 3 [facility] Surg Room 319-01. Patient/family oriented to hospital policies and general routines including ID bracelet, bed and alarms, visiting hours, pain management, procedures, bathroom and other care routines, personal items, smoking policy, room service/diet, and visiting hours. Information on how to activate the Rapid Response Team has been discussed. Patient/Family are encouraged to report perceived risks to care and to ask questions if they do not understand what they are told or what they should do. received report from lilian.
[2024-10-28] MEDS: DOCUSATE SODIUM 100 MG CAPSULE PO (18:35)
[2024-10-28] MEDS: DUTASTERIDE 0.5 MG CAPSULE PO (20:42)
[2024-10-28] MEDS: MIRABEGRON 25 MG ER TABLET PO (20:43)
[2024-10-28] MEDS: TAMSULOSIN HCL 0.4 MG CAPSULE BY MOUTH (20:43)
[2024-10-29 05:27] VITALS: BP 147/63; PULSE 63; RESP 16; TEMP 36.3; O2SAT 97
[2024-10-29] MEDS: SODIUM CHLORIDE 0.9% IV 1,000 ML 100 ML IV CONT (06:16)
[2024-10-29] MEDS: AZTREONAM 1 GM/NS 50 ML 1 GM/50 ML BAG IVPB ×3 (06:16→21:28)
[2024-10-29 06:18] LABS: Hematocrit 39.8 % (42.0-52.0); Hemoglobin 12.8 g/dL (14.0-18.0); Immature Granulocyte Percent A 0.3 % (0-0.5); Lymphocytes Absolute Auto 2.00 K/mm3 (0.9-3.2); Mean Corpuscular HGB Conc 32.2 g/dl (32-36); Mean Corpuscular Hemoglobin 31.2 pg (26-34); Mean Corpuscular Volume 97.1 fl (80-100); Nucleated Red Blood Cells Absolute Auto 0.000 K/mm3 (0.0-0.012); Nucleated Red Blood Cells Perc 0.0 % (0.0-0.2); Platelet Count Result 199 k/mm3 (150-375); Red Blood Count 4.10 M/mm3 (4.6-6.20); White Blood Count 6.2 K/mm3 (4.5-10.0)
[2024-10-29 06:25] LABS: Anion Gap 2 mmol/L (4-12); Blood Urea Nitrogen 15 mg/dL (9-20); Calcium 8.2 mg/dL (8.4-10.2); Carbon Dioxide 27 mmol/L (22-30); Chloride 108 mmol/L (98-107); Estimated CRCL calculation 65 ml/min; Estimated Glomerular Filt Rate > 60; Glucose 91 mg/dL (65-110); Potassium 4.0 mmol/L (3.4-5.0); Sodium 137 mmol/L (137-145)
--- NOTE | 2024-10-29 08:00 | ECG_ITS ---
Test Date: 2024-10-29 07:38:38 Measurements Intervals Stuart Rate: 61 P: 56 WA: 216 QRS: -35 QRSD: 104 T: 45 QT: 427 QTc: 431 Interpretive Statements SINUS RHYTHM WITH FIRST DEGREE AV BLOCK LEFT AXIS DEVIATION [QRS AXIS < -30] Compared to ECG 03/04/2024 01:27:38 First degree AV block now present Ventricular premature complex(es) no longer present Electronically Signed On 10-29-2024 12:51:45 CDT by Uday Cavanaugh M.D.
[2024-10-29] MEDS: FUROSEMIDE 20 MG TABLET PO (08:07)
[2024-10-29] MEDS: NEBIVOLOL HCL 5 MG TABLET PO (08:07)
[2024-10-29] MEDS: LOSARTAN POTASSIUM 50 MG TABLET PO (08:08)
[2024-10-29] MEDS: SERTRALINE HCL 25 MG TABLET PO (08:08)
[2024-10-29] MEDS: ROSUVASTATIN 10 MG TABLET PO (08:08)
[2024-10-29] MEDS: DOCUSATE SODIUM 100 MG CAPSULE PO (08:08)
[2024-10-29] MEDS: VANCOMYCIN 1,250 MG/NS 250 ML 1,250 MG/250 ML BAG 166.67 MG IVPB (09:22)
--- NOTE | 2024-10-29 12:32 | P.CONS_ITS ---
Assessment and Plan Assessment and plan (1) Osteomyelitis of toe of right foot: Code(s): M86.9 - Osteomyelitis, unspecified Status: Acute Assessment and Plan: Patient admitted with osteomyelitis of the tip of the right 3rd toe. He has some associated mild cellulitic changes of the toe extending onto the right forefoot. The base the toes completely viable. He does have palpable right dorsalis pedis pulse and there is no other suggestions of ischemia to the remaining toes. X-ray shows changes in the distal phalanx consistent with some bone destruction and osteomyelitis. Given his the tip of the toe I think it would probably be in his best interest to proceed with amputation of the tip of the right 3rd toe and try to salvage the remaining part of the toe. Continue on IV antibiotics over the weekend to treat the cellulitis. Will likely proceed to the operating room early next week for partial amputation of the right 3rd toe. Continue the hold the patient's Xarelto for now for upcoming surgery. HPI Data of Consult Date/Time: 10/29/24 12:32 Requesting Physician: Fern Carpio MD Primary Care Provider: Laron Doe MD Consult Narrative Reason for consult: Right 3rd toe wound with cellulitis and osteomyelitis Narrative: Patient admitted to the hospital through the emergency room yesterday with complaints of redness and pain of his right 3rd toe. The patient has been following with a mechanic sound technician as an outpatient and recently had a callus removed from the tip of this toe. This has been done multiple occasions but this time he persisted in having pain which was worsening with swelling and redness after the procedure. He is not a diabetic. He has a history of coronary artery disease and cardiac stents placed many years ago. He was admitted for pneumonia at the end of last year and ended up having a right lower extremity DVT. He was placed on Xarelto for treatment of the DVT and remains on that medication. It is been held since he has been admitted to the hospital. He was started on aztreonam and vancomycin for treatment of the wound on the right 3rd toe. X-ray shows changes of the tip of the phalanx of the right 3rd toe consistent with osteomyelitis. He is ambulatory. Review of Systems 2 Review of Systems: The remainder of the review of systems to include constitutional, HEENT, cardiovascular, respiratory, GI, , integumentary, musculoskeletal, endocrine, immunologic, hematologic, psychiatric, and neurologic are all negative except for which is mentioned above in the HPI. [facility] Past Medical History Medical History Right anterior shoulder pain Sinus congestion Right foot pain Right anterior knee pain Primary osteoarthritis, right shoulder Hyperlipidemia LDL goal <100 Sting from hornet, wasp, or bee Foreign body in left ear, initial encounter Benign hypertension Small bowel obstruction Hyperlipidemia Primary hypertension Osteoarthritis of both knees Hammer toe of second toe of right foot Right anterior shoulder pain (~08/2018) GERD (gastroesophageal reflux disease) Coronary artery disease BPH (benign prostatic hyperplasia) Right inguinal hernia not repaired Dupuytrens contracture Surgical History Surgical History History of strabismus surgery bilateral History of heart artery stent (~2010) 2 stents History of umbilical hernia repair Hx of tonsillectomy History of appendectomy Hx of cataract surgery History of vasectomy History of hand surgery Family History Family History Father , at 78 years old Hx of ulcer disease Son Drug abuse Mother CHF (congestive heart failure) Social History Social History Social History: Smoking packs per day: 1 Smoking cigarettes per day: 20.0 Years smoked: 22 Smoking pack-years: 22.00 Smoking status: Former smoker Second hand tobacco smoke exposure: No Alcohol intake: never Alcohol use details: patient only rarely drinks alcohol and small amounts. Substance use: never Substance use type: does not use Do You Feel Safe in your Home?: Yes Lack of Transportation: No Lack of Food: Never True Current Housing: I Have Housing Concerned About Future Housing: No Difficulty Paying Gas/Electric Bills: No Difficulty Paying for Meds: No Currently Unemployed: YES Education: Don't Know Difficulty w/ Childcare or Family Care: No Living arrangements: with family Additional living arrangements comments: He lives with his of 63 years. He is independent in activities of daily living. They have 3 children. His son lives in [place]. He has a daughter who lives in [place] and another daughter that lives in [place]. 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 Gender identity (if verbalized by the patient): Male Sexual Orientation (if Verbalized by the Patient): Straight or Heterosexual Spiritual care concerns: No Meds Home Medications and Allergies Home Medications ?Medication ?Instructions ?Recorded ?Confirmed ?Type dutasteride 0.5 mg capsule 0.5 mg PO HS 05/24/19 10/28/24 History rosuvastatin 10 mg tablet 10 mg PO DAILY 03/11/23 10/28/24 History sertraline 25 mg tablet 25 mg PO DAILY #30 tabs 10/13/23 10/28/24 Rx acetaminophen 650 mg 650 mg PO Q8H PRN pain #90 tabs 02/10/24 10/28/24 Rx tablet,extended release (Tylenol Arthritis Pain) coenzyme Q10 200 mg capsule See Rx Instructions .Route 04/19/24 10/28/24 Rx (Q-Sorb Co Q-10) .COMPLEX #35 caps tamsulosin 0.4 mg capsule See Rx Instructions .Route 04/19/24 10/28/24 Rx .COMPLEX #90 caps lactulose 10 gram/15 mL oral 10 g (15 mL) PO DAILY PRN 04/30/24 10/28/24 Rx solution constipation #946 mL polyethylene glycol 3350 17 gram 17 g PO DAILY #30 ea 04/30/24 10/28/24 Rx oral powder packet (Miralax) wheat dextrin 3 gram/4 gram oral 3 g PO BID #28 ea 04/30/24 10/28/24 Rx powder packet (Benefiber Sugar Free (dextrin)) aspirin 81 mg tablet,delayed 81 mg PO DAILY #90 tabs 06/18/24 10/28/24 Rx release multivitamin with folic acid 400 See Rx Instructions .Route 06/18/24 10/28/24 Rx mcg tablet (Tab-A-Magaly) .COMPLEX #90 caps rivaroxaban 20 mg tablet (Xarelto) 20 mg PO DAILY #30 tabs 09/23/24 10/28/24 Rx fluticasone propionate 50 See Rx Instructions .Route 09/28/24 10/28/24 Rx mcg/actuation nasal .COMPLEX #16 grams spray,suspension omeprazole 40 mg capsule,delayed 20 mg PO DAILY 10/07/24 10/28/24 History release Lactobacillus acidophilus 1 tablet PO DAILY 10/28/24 10/28/24 History (Acidophilus chewable tablet) furosemide 20 mg tablet 20 mg PO QAM edema 10/28/24 10/28/24 History losartan 50 mg tablet 50 mg PO DAILY 10/28/24 10/28/24 History mirabegron 25 mg tablet,extended 25 mg PO HS 10/28/24 10/28/24 History release 24 hr nebivolol 5 mg tablet (Bystolic) 5 mg PO DAILY 10/28/24 10/28/24 History Allergies Allergy/AdvReac Type Severity Reaction Status Date / Time Penicillins Allergy Unknown Unknown Verified 10/28/24 10:54 Vital Signs Vital Signs - 24 hr 10/28/24 12:55 10/28/24 13:00 10/28/24 13:31 Temperature Pulse Rate 67 62 62 Respiratory Rate 17 12 13 Blood Pressure 122/67 129/59 L 131/59 L Pulse Oximetry 100 98 97 Oxygen Delivery 10/28/24 14:01 10/28/24 15:57 10/28/24 16:00 Temperature Pulse Rate 74 60 57 L Respiratory Rate 21 H 17 16 Blood Pressure 139/102 H 136/95 H 146/59 H Pulse Oximetry 98 99 99 Oxygen Delivery 10/28/24 20:00 10/28/24 21:10 10/28/24 21:23 Temperature 36.2 C L Pulse Rate 60 60 Respiratory Rate 13 13 Blood Pressure 137/48 L Pulse Oximetry 100 97 100 Oxygen Delivery Room Air Room Air 10/29/24 05:27 10/29/24 08:00 Temperature 36.3 C L Pulse Rate 63 Respiratory Rate 16 Blood Pressure 147/63 H Pulse Oximetry 97 Oxygen Delivery Room Air Exam 2 Const: General: comfortable and no acute distress HENMT: Ears: TM's normal bilaterally Face/Nose/Sinus: Normal nares present Mouth: Yes moist mucous membranes Eyes: General: appearance normal, both eyes and all related structures S clera: sclerae normal Pupils: Equal, round and reactive pupils present E OM: EOMs intact bilaterally Neck: Neck: supple and no JVD Resp: Effort & Inspection: normal respiratory effort Auscultation: clear to auscultation bilaterally Cardio: Rate: regular rate Rhythm: regular rhythm GI: GI Palp: Yes Soft to palpation, No Firmness to palpation present (GI), No Tenderness to palpation present (GI), No Guarding due to palpation present (GI) and No Hernia present Skin: General skin exam: normal color and no rashes or lesions noted Neuro: General: gait normal Speech: normal speech Motor exam (neuro): 5 /5 motor strength present throughout Sensory Exam: normal sensation Extrem: Other: The right foot has some very mild erythema extending from the right 3rd toe onto the dorsal aspect of the forefoot. Some mild swelling is noted. He does have a palpable right dorsalis pedis pulse. The 3rd right toe as some dry gangrenous changes at the tip. Bone is not exposed. There is no pus drainage. Remaining right toes are all viable. He is able to move all of his toes. The wound only involves the very distal tip of the right 3rd toe. Psych: Mental Status: mental status grossly normal Affect: normal affect Results Labs 10/29/24 05:58 10/29/24 05:57 Labs: Short CBC 10/28/24 10/29/24 Range/Units 12:51 05:58 WBC 11.2 H 6.2 (4.5-10.0) K/mm3 Hgb 14.0 12.8 L (14.0-18.0) g/dL Hct 43.5 39.8 L (42.0-52.0) % Plt Count 236 199 (150-375) k/mm3 BMP 10/28/24 10/29/24 12:51 05:57 Sodium 138 137 Potassium 4.1 4.0 Chloride 104 108 H Carbon Dioxide 26 27 BUN 21 H 15 D Creatinine 0.88 0.72 Glucose 100 91 Calcium 8.8 8.2 L Liver Function 10/28/24 Range/Units 12:51 Total Bilirubin 1.1 (0.2-1.3) mg/dL AST 40 (17-59) U/L ALT 21 (6-50) U/L Alkaline Phosphatase 67 (38-126) U/L Albumin 4.1 (3.5-5.1) g/dL
[2024-10-29 14:00] VITALS: BP 134/52; PULSE 61; RESP 18; TEMP 36.9; O2SAT 100
[2024-10-29] MEDS: ENOXAPARIN 40 MG/0.4 ML SYRINGE SUB-Q (14:00)
--- NOTE | 2024-10-29 14:21 | P.PNIM_ITS ---
Progress Note: A&P Assessment and Plan (1) 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: Code(s): M86.9 - Osteomyelitis, unspecified Status: Acute Assessment and Plan: Surgery consulted for possible amputation IV antibiotics vancomycin and azactam IVF for hydration Blood cultures pending Echocardiogram pending EKG pending Chest x-ray workup pending Patient has no history of diabetes surgery consulted: notes reviewed:Continue on IV antibiotics over the weekend to treat the cellulitis. Will likely proceed to the operating room early next week for partial amputation of the right 3rd toe. Continue the hold the patient's Xarelto for now for upcoming surgery. (2) Primary hypertension: Code(s): I10 - Essential (primary) hypertension Status: Acute Assessment and Plan: Okay for home antihypertensives (3) Coronary artery disease: Code(s): I25.10 - Atherosclerotic heart disease of [place] coronary artery without angina pectoris Status: Acute Assessment and Plan: Continue statin, Bystolic, losartan and aspirin Currently holding Xarelto incase of OR continue to hold it (4) Hyperlipidemia: Qualifiers: Hyperlipidemia type: unspecified Qualified Code(s): E78.5 - Hyper lipidemia, unspecified Code(s): E78.5 - Hyperlipidemia, unspecified Status: Acute Assessment and Plan: Continue statin (5) Chronic constipation: Code(s): K59.09 - Other constipation Status: Acute Assessment and Plan: Senna (6) Lower extremity edema: Code(s): R60.0 - Localized edema Status: Acute Assessment and Plan: Patient states that he has been on Lasix for the last month for his lower extremity swelling neuro improvement, patient does not know if CHF Echocardiogram pending Continue home Lasix at this time may need IV eleavte legs jie wrapp and/or compressions stockings Time Spent With Patient Time with patient: 25 - 35 minutes Subjective Date/time seen: 10/29/24 14:21 Interval history: A year old male past medical history of CAD, BPH, hypertension, hyperlipidemia presents the hospital nonhealing wound. Patient states that he had a callus on his toe which he had seen Podiatry for with removal of callus. Toe is now swollen and painful. Patient denies trauma to the toe. Patient states he feels well overall. Denies fevers chills nausea vomiting. In the ED patient has leukocytosis 11.2, C reactive protein of 3.1, x-ray of the toe shows Erosion at the tuft of the right third distal phalanx consistent with osteomyelitis. Patient started on vancomycin and azactam. Blood cultures pending. Surgery consulted for possible amputation. 10/29- pt is seen and examined. H eis alert, [place], denies pain. Reports swelling to BLE since 2012 when he had care accident. He normally wearing compression stocking and elevates legs with some relief. surgery following. Review of Systems Review of Systems: 12 systems were reviewed and are negativ e except for as per HPI. Exam Narrative: General: well appearing, appears stated age. HEENT: normocephalic, atraumatic. Mucous membranes moist. EOMI, PERRLA, bilateral sclera anicteric, no conjunctival injection. Neck supple without JVD, lymphadenopathy, or bruit. Respiratory: clear to ascultation bilaterally. No rales/rhonic/wheezes. Cardiovascular: Regular rate and rhythm, normal S1-S2 upon ascultation. No murmurs, rubs, or clicks. PMI is nondisplaced, capillary refill less than 3 second. BLE swelling Abdomen: Soft, round, no pulsatile masses, nondistended and nontender. No rebound, no guarding. No CVA tenderness, no hepatosplenomegaly. Bowel sounds present to all four quadrants. No high pitch or tinkling sounds, resonant to percussion. Extremities: No cyanosis, clubbing, or edema present. Pulses are palpable 2/2. Right 3rd toe with necrotic tip, swelling erythema Neuro: Alert and orientated x 4. PERRLA. Cranial nerves 2-12 intact without focal deficit. Skin: Warm, dry, and intact, without rash, erythema, or lesion. Psych: pleasant, cooperative, normal speech, normal affect, no hallucinations, no dysarthia Const: General: comfortable Objective Data Vital Signs Vital Signs: Vital Signs - 24 hr 10/28/24 15:57 10/28/24 16:00 10/28/24 20:00 Temperature Pulse Rate 60 57 L 60 Respiratory Rate 17 16 13 Blood Pressure 136/95 H 146/59 H Pulse Oximetry 99 99 100 Oxygen Delivery Room Air 10/28/24 21:10 10/28/24 21:23 10/29/24 05:27 Temperature 97.1 F L 97.4 F L Pulse Rate 60 63 Respiratory Rate 13 16 Blood Pressure 137/48 L 147/63 H Pulse Oximetry 97 100 97 Oxygen Delivery Room Air 10/29/24 08:00 Temperature Pulse Rate Respiratory Rate Blood Pressure Pulse Oximetry Oxygen Delivery Room Air Intake/Output Intake/Output: Intake & Output 10/26/24 10/27/24 10/28/24 10/29/24 23:59 23:59 23:59 23:59 Intake Total 350 1500 Output Total 600 Balance 350 900 Meds/Results Medications: Active Medications Generic Name Dose Route Start Last Admin Trade Name Freq PRN Reason Stop Dose Admin Acetaminophen 650 mg 10/28/24 15:18 Acetaminophen 325 Mg Tablet PO Q4H PRN Mild Pain (1-3) or Fever Hydrocodone Bitart/Acetaminophen 1 tab 10/28/24 15:18 Hydrocodone/Acetaminophen (*Crx) 5-325 Mg Tablet PO Q4H PRN Moderate Pain (4-6) Aspirin 81 mg 10/29/24 09:00 10/29/24 08:08 Aspirin 81 Mg Enteric Tablet PO Not Given DAILY ALBIN Docusate Sodium 100 mg 10/28/24 17:00 10/29/24 08:08 Docusate Sodium 100 Mg Capsule PO 100 mg BID ALBIN Administration Dutasteride 0.5 mg 10/28/24 21:00 10/28/24 20:42 Dutasteride 0.5 Mg Capsule PO 0.5 mg HS ALBIN Administration Enoxaparin Sodium 40 mg 10/29/24 12:45 10/29/24 14:00 Enoxaparin 40 Mg/0.4 Ml Syringe SUB-Q 40 mg DAILY ALBIN Administration Furosemide 20 mg 10/29/24 09:00 10/29/24 08:07 Furosemide 20 Mg Tablet PO 20 mg QAM ALBIN Administration Aztreonam 1 gm in 50 mls @ 100 mls/hr 10/28/24 22:00 10/29/24 13:59 Azactam 1 Gm/Ns 50 Ml IVPB 100 mls/hr Q8H ALBIN Administration Vancomycin HCl 1,250 mg in 250 mls @ 166.667 mls/hr 10/29/24 09:00 10/29/24 10:52 Vancomycin 1,250 Mg/Ns 250 Ml IVPB Infused Q18H ALBIN Infusion Losartan Potassium 50 mg 10/29/24 09:00 10/29/24 08:08 Losartan Potassium 50 Mg Tablet PO 50 mg DAILY ALBIN Administration Mirabegron 25 mg 10/28/24 21:00 10/28/24 20:43 Mirabegron 25 Mg Er Tablet PO 25 mg HS ALBIN Administration Morphine Sulfate 2 mg 10/28/24 15:18 Morphine Sulfate (*Crx) 2 Mg/Ml Inj IV PUSH Q4H PRN Pain Rated 7-10 Nebivolol 5 mg 10/29/24 09:00 10/29/24 08:07 Nebivolol Hcl 5 Mg Tablet PO 5 mg DAILY ALBIN Administration Perflutren Lipid Microsphere 0 ml 10/28/24 22:16 Perflutren Lipid Microspheres 1.5 Ml Vial Diluted To 10 Ml Total Volume IV PUSH 10/31/24 22:16 ONCE PRN adequate visualization Protocol Polyethylene Glycol 17 gm 10/29/24 09:00 10/29/24 08:08 Polyethylene Glycol 3350 17 Gm Powd.Pack PO Not Given DAILY ALBIN Rosuvastatin Calcium 10 mg 10/29/24 09:00 10/29/24 08:08 Rosuvastatin 10 Mg Tablet PO 10 mg DAILY ALBIN Administration Sertraline HCl 25 mg 10/29/24 09:00 10/29/24 08:08 Sertraline Hcl 25 Mg Tablet PO 25 mg DAILY ALBIN Administration Tamsulosin HCl 0.4 mg 10/28/24 21:00 10/28/24 20:43 Tamsulosin Hcl 0.4 Mg Capsule BY MOUTH 0.4 mg HS ALBIN Administration Radiology Results: ITS Impressions Toe X-Ray 10/28/24 14:02 IMPRESSION: Erosion at the tuft of the right third distal phalanx consistent with osteomyelitis. Chest X-Ray 10/29/24 00:18 IMPRESSION: No acute cardiopulmonary pathology Labs Labs: Laboratory Results - last 24 hr 10/29/24 10/29/24 05:57 05:58 WBC 6.2 RBC 4.10 L Hgb 12.8 L Hct 39.8 L MCV 97.1 MCH 31.2 MCHC 32.2 RDW 14.4 Plt Count 199 MPV 9.7 Immature Gran % (Auto) 0.3 Neut % (Auto) 51.1 Lymph % (Auto) 32.4 [place] % (Auto) 12.6 H Eos % (Auto) 3.1 Baso % (Auto) 0.5 Lymph # (Auto) 2.00 [place] # (Auto) 0.8 H Eos # (Auto) 0.2 Baso # (Auto) 0.0 Abs Immat Gran (auto) 0.02 Absolute Neuts (auto) 3.2 Absolute Nucleated RBC 0.000 Nucleated RBC % 0.0 Sodium 137 Potassium 4.0 Chloride 108 H Carbon Dioxide 27 Anion Gap 2 L BUN 15 D Creatinine 0.72 Estim Creat Clear Calc 65 Estimated GFR > 60 Glucose 91 Calcium 8.2 L Quality VTE Prophylaxis VTE prophylaxis: mechanical ordered and pharmacologic ordered
[2024-10-29 20:00] VITALS: PULSE 61; RESP 18; O2SAT 97
[2024-10-29] MEDS: TAMSULOSIN HCL 0.4 MG CAPSULE BY MOUTH (20:53)
[2024-10-29] MEDS: DUTASTERIDE 0.5 MG CAPSULE PO (20:53)
[2024-10-29] MEDS: MIRABEGRON 25 MG ER TABLET PO (20:53)
[2024-10-29 22:00] VITALS: BP 151/51; PULSE 61; RESP 18; TEMP 36.6; O2SAT 97
--- NOTE | 2024-10-30 | ECHO_ITS ---
Patient Info Name: Deep Lewis Age: 88 years : 1935 Gender: Male Ht: 70 in Wt: 199 lbs BSA: 2.13 m2 HR: 61 bpm BP: 128 / 58 mmHg Technical Quality: Fair Exam Date: 10/30/2024 2:19 PM Patient Status: I Admit Date: 10/29/2024 Exam Type: CA echo limited Limited two-dimensional transthoracic echocardiogram is performed. Staff Referring Physician: Pita Hopson [employer] Technician: Rosa Figueroa Attending Provider: Fern Carpio Summary 1. Left ventricular systolic function is normal, estimated at 55-60. There is basal anteroseptal hypokinesis. 2. There is mildly increased left ventricular wall thickness. 3. The left ventricular diastolic function is grade II diastolic dysfunction. 4. There is mild aortic valve regurgitation. 5. There is mild mitral valve regurgitation. Left Ventricle Left ventricular chamber dimension is normal. Left ventricular systolic function is normal, estimated at 55-60. There is basal anteroseptal hypokinesis. There is mildly increased left ventricular wall thickness. The left ventricular diastolic function is grade II diastolic dysfunction. Right Ventricle Right ventricular chamber dimension is normal. Right ventricular systolic function is normal. Left Atria Left atrial chamber dimension is normal. Right Atria Right atrial chamber dimension is normal. Aortic Valve The aortic valve is not well visualized. There is mild aortic valve regurgitation. Pulmonic Valve The pulmonic valve is not well visualized. Mitral Valve The mitral valve has normal leaflets. There is no mitral valve stenosis. There is mild mitral valve regurgitation. Tricuspid Valve The tricuspid valve leaflets are normal. There is no tricuspid valve regurgitation. Pericardium/Pleural The pericardium appears normal. There is no pericardial effusion. Inferior Vena Cava Normal inferior vena cava with >50% collapse upon inspiration consistent with normal right atrial pressure, 5 mmHg. Aorta The aortic root size at the sinus of Valsalva is normal. The prox ascending aorta size is normal. Left Ventricular Outflow Tract Name Value Normal LVOT Doppler LVOT Peak Velocity 108 cm/s LVOT Peak Gradient 5 mmHg LVOT Mean Gradient 3 mmHg LVOT VTI 24 cm Mitral Valve Name Value Normal MV Diastolic Function MV E Peak Velocity 74 cm/s MV A Peak Velocity 68 cm/s MV E/A 1.1 MV Decel Time (PW) 378 ms MV Annular TDI MV E/e' (Septal) 9.5 MV E/e' (Lateral) 9.0 MV E/e' (Average) 9.2 Tricuspid Valve Name Value Normal Estimated PAP/RSVP RA Pressure 5 mmHg <=5 Aortic Valve Name Value Normal AV Doppler AV Peak Velocity 111 cm/s AV Peak Gradient 5 mmHg AV DI (Luiz) 0.98 Ventricles Name Value Normal LV Fractional Shortening/Ejection Fraction 2D/MM LV Diastolic Volume (4C MOD) 114 ml LV EF (4C MOD) 65 % LV Diastolic Volume (2C MOD) 108 ml LV EF (2C MOD) 60 % LV Diastolic Volume (BP MOD) 110 ml 62-150 LV Diastolic Volume Index (BP MOD) 52 ml/m2 34-74 LV Systolic Volume (BP MOD) 40 ml 21-61 LV Systolic Volume Index (BP MOD) 19 ml/m2 11-31 LV EF (BP MOD) 63 % 52-72 LV Diastolic Length (4C) 8.7 cm LV Systolic Length (4C) 7.0 cm LV Stroke Volume (4C MOD) 74 ml Report Signatures
[2024-10-30] MEDS: VANCOMYCIN 2,000 MG/NS 500 ML 2,000 MG/500 ML BAG 250 MG IVPB ×2 (02:40→22:35)
[2024-10-30] MEDS: AZTREONAM 1 GM/NS 50 ML 1 GM/50 ML BAG IVPB ×3 (05:10→21:09)
[2024-10-30 06:00] VITALS: BP 148/61; PULSE 61; RESP 18; TEMP 36.8; O2SAT 99
[2024-10-30 06:24] LABS: Estimated CRCL calculation 66 ml/min; Estimated Glomerular Filt Rate > 60
[2024-10-30 08:25] VITALS: PULSE 66
[2024-10-30] MEDS: ASPIRIN 81 MG ENTERIC TABLET PO (08:25)
[2024-10-30] MEDS: ROSUVASTATIN 10 MG TABLET PO (08:25)
[2024-10-30] MEDS: NEBIVOLOL HCL 5 MG TABLET PO (08:25)
[2024-10-30] MEDS: SERTRALINE HCL 25 MG TABLET PO (08:25)
[2024-10-30] MEDS: LOSARTAN POTASSIUM 50 MG TABLET PO (08:25)
[2024-10-30] MEDS: FUROSEMIDE 20 MG TABLET PO (08:25)
[2024-10-30] MEDS: ENOXAPARIN 40 MG/0.4 ML SYRINGE SUB-Q (10:16)
--- NOTE | 2024-10-30 13:52 | P.PNIM_ITS ---
Progress Note: A&P Assessment and Plan (1) 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: Code(s): M86.9 - Osteomyelitis, unspecified Status: Acute Assessment and Plan: Surgery consulted for possible amputation IV antibiotics vancomycin and azactam IVF for hydration Blood cultures pending Echocardiogram pending EKG pending Chest x-ray workup pending Patient has no history of diabetes Surgery consulted: notes reviewed:Continue on IV antibiotics over the weekend to treat the cellulitis. Will likely proceed to the operating room early next week for partial amputation of the right 3rd toe. Continue the hold the patient's Xarelto for now for upcoming surgery. ----- surgery for friday (2) Primary hypertension: Code(s): I10 - Essential (primary) hypertension Status: Acute Assessment and Plan: Okay for home antihypertensives (3) Coronary artery disease: Code(s): I25.10 - Atherosclerotic heart disease of [place] coronary artery without angina pectoris Status: Acute Assessment and Plan: Continue statin, Bystolic, losartan and aspirin Currently holding Xarelto incase of OR continue to hold it (4) Hyperlipidemia: Qualifiers: Hyperlipidemia type: unspecified Qualified Code(s): E78.5 - Hyperlipidemia, unspecified Code(s): E78.5 - Hyperlipidemia, unspecified Status: Acute Assessment and Plan: Continue statin (5) Chronic constipation: Code(s): K59.09 - Other constipation Status: Acute Assessment and Plan: [place] (6) Lower extremity edema: Code(s): R60.0 - Localized edema Status: Acute Assessment and Plan: Patient states that he has been on Lasix for the last month for his lower extremity swelling neuro improvement, patient does not know if CHF Echocardiogram pending Continue home Lasix at this time may need IV elevate legs jie wrap and/or compressions stockings Time Spent With Patient Time with patient: 25 - 35 minutes Subjective Date/time seen: 10/30/24 13:52 Interval history: A year old male past medical history of CAD, BPH, hypertension, hyperlipidemia presents the hospital nonhealing wound. Patient states that he had a callus on his toe which he had seen Podiatry for with removal of callus. Toe is now swollen and painful. Patient denies trauma to the toe. Patient states he feels well overall. Denies fevers chills nausea vomiting. In the ED patient has leukocytosis 11.2, C reactive protein of 3.1, x-ray of the toe shows Erosion at the tuft of the right third distal phalanx consistent with osteomyelitis. Patient started on vancomycin and azactam. Blood cultures pending. Surgery consulted for possible amputation. 10/29 - pt is seen and examined. He is alert, [place], denies pain. Reports swelling to BLE since 2012 when he had care accident. He normally wearing compression stocking and elevates legs with some relief. surgery following. 10/30 - pt is seen and examined. He is doing well. pain is well controlled. no n/v/d. Review of Systems Review of Systems: 12 systems were reviewed and are negativ e except for as per HPI. Exam Narrative: General: well appearing, appears stated age. HEENT: normocephalic, atraumatic. Mucous membranes moist. EOMI, PERRLA, bilateral sclera anicteric, no conjunctival injection. Neck supple without JVD, lymphadenopathy, or bruit. Respiratory: clear to ascultation bilaterally. No rales/rhonic/wheezes. Cardiovascular: Regular rate and rhythm, normal S1-S2 upon ascultation. No murmurs, rubs, or clicks. PMI is nondisplaced, capillary refill less than 3 second. BLE swelling Abdomen: Soft, round, no pulsatile masses, nondistended and nontender. No rebound, no guarding. No CVA tenderness, no hepatosplenomegaly. Bowel sounds present to all four quadrants. No high pitch or tinkling sounds, resonant to percussion. Extremities: No cyanosis, clubbing, or edema present. Pulses are palpable 2/2. Right 3rd toe with necrotic tip, swelling erythema Neuro: Alert and orientated x 4. PERRLA. Cranial nerves 2-12 intact without focal deficit. Skin: Warm, dry, and intact, without rash, erythema, or lesion. Psych: pleasant, cooperative, normal speech, normal affect, no hallucinations, n o dysarthia Const: General: comfortable Objective Data Vital Signs Vital Signs: Vital Signs - 24 hr 07/04/25 14:00 10/29/24 20:00 10/29/24 22:00 Temperature 98.5 F 98 F Pulse Rate 61 61 61 Respiratory Rate 18 18 18 Blood Pressure 134/52 L 151/51 H Pulse Oximetry 100 97 97 Oxygen Delivery Room Air 10/30/24 06:00 10/30/24 08:00 10/30/24 08:25 Temperature 98.2 F Pulse Rate 61 66 Respiratory Rate 18 Blood Pressure 148/61 H Pulse Oximetry 99 Oxygen Delivery Room Air Intake/Output Intake/Output: Intake & Output 10/27/24 10/28/24 10/29/24 10/30/24 23:59 23:59 23:59 23:59 Intake Total 350 2870 740 Output Total 1700 600 Balance 350 1170 140 Meds/Results Medications: Active Medications Generic Name Dose Route Start Last Admin Trade Name Freq PRN Reason Stop Dose Admin Acetaminophen 650 mg 10/28/24 15:18 Acetaminophen 325 Mg Tablet PO Q4H PRN Mild Pain (1-3) or Fever Hydrocodone Bitart/Acetaminophen 1 tab 10/28/24 15:18 Hydrocodone/Acetaminophen (*Crx) 5-325 Mg Tablet PO Q4H PRN Moderate Pain (4-6) Aspirin 81 mg 10/29/24 09:00 10/30/24 08:25 Aspirin 81 Mg Enteric Tablet PO 81 mg DAILY ALBIN Administration Docusate Sodium 100 mg 10/28/24 17:00 10/30/24 08:25 Docusate Sodium 100 Mg Capsule PO Not Given BID ALBIN Dutasteride 0.5 mg 10/28/24 21:00 10/29/24 20:53 Dutasteride 0.5 Mg Capsule PO 0.5 mg HS ALBIN Administration Enoxaparin Sodium 40 mg 10/29/24 12:45 10/30/24 10:16 Enoxaparin 40 Mg/0.4 Ml Syringe SUB-Q 40 mg DAILY ALBIN Administration Furosemide 20 mg 10/29/24 09:00 10/30/24 08:25 Furosemide 20 Mg Tablet PO 20 mg QAM ALBIN Administration Aztreonam 1 gm in 50 mls @ 100 mls/hr 10/28/24 22:00 10/30/24 05:10 Azactam 1 Gm/Ns 50 Ml IVPB 100 mls/hr Q8H ALBIN Administration Vancomycin HCl 2,000 mg in 500 mls @ 250 mls/hr 10/30/24 03:00 10/30/24 02:40 Vancomycin 2,000 Mg/Ns 500 Ml IVPB 250 mls/hr Q18H ALBIN Administration Losartan Potassium 50 mg 10/29/24 09:00 10/30/24 08:25 Losartan Potassium 50 Mg Tablet PO 50 mg DAILY ALBIN Administration Mirabegron 25 mg 10/28/24 21:00 10/29/24 20:53 Mirabegron 25 Mg Er Tablet PO 25 mg HS ALBIN Administration Morphine Sulfate 2 mg 10/28/24 15:18 Morphine Sulfate (*Crx) 2 Mg/Ml Inj IV PUSH Q4H PRN Pain Rated 7-10 Nebivolol 5 mg 10/29/24 09:00 10/30/24 08:25 Nebivolol Hcl 5 Mg Tablet PO 5 mg DAILY ALBIN Administration Perflutren Lipid Microsphere 0 ml 10/28/24 22:16 Perflutren Lipid Microspheres 1.5 Ml Vial Diluted To 10 Ml Total Volume IV PUSH 10/31/24 22:16 ONCE PRN adequate visualization Protocol Polyethylene Glycol 17 gm 10/29/24 09:00 10/30/24 08:25 Polyethylene Glycol 3350 17 Gm Powd.Pack PO Not Given DAILY ALBIN Rosuvastatin Calcium 10 mg 10/29/24 09:00 10/30/24 08:25 Rosuvastatin 10 Mg Tablet PO 10 mg DAILY ALBIN Administration Sertraline HCl 25 mg 10/29/24 09:00 10/30/24 08:25 Sertraline Hcl 25 Mg Tablet PO 25 mg DAILY ALBIN Administration Tamsulosin HCl 0.4 mg 10/28/24 21:00 10/29/24 20:53 Tamsulosin Hcl 0.4 Mg Capsule BY MOUTH 0.4 mg HS ALBIN Administration Radiology Results: ITS Impressions Toe X-Ray 10/28/24 14:02 IMPRESSION: Erosion at the tuft of the right third distal phalanx consistent with osteomyelitis. Chest X-Ray 10/29/24 00:18 IMPRESSION: No acute cardiopulmonary pathology Labs Labs: Laboratory Results - last 24 hr 10/30/24 10/30/24 01:47 05:58 Creatinine 0.71 Estim Creat Clear Calc 66 Estimated GFR > 60 Vancomycin Trough 10.7 Quality VTE Prophylaxis VTE prophylaxis: mechanical ordered and pharmacologic ordered
[2024-10-30 14:00] VITALS: BP 128/58; PULSE 58; RESP 16; TEMP 36.8; O2SAT 98
[2024-10-30] MEDS: HYDROcodone/acetaminophen (*CRX) 5-325 MG TABLET 1 TAB PO (18:59)
--- NOTE | 2024-10-30 19:19 | PC.NURSE ---
On 10/30/24, the FINAL CANOE INSPECTOR, Marissa Diggs, provided care and completed Dine in documentation on this patient. I have reviewed the FINAL CANOE INSPECTOR's documentation and agree with the findings.
[2024-10-30 20:00] VITALS: PULSE 58; RESP 16; O2SAT 97
[2024-10-30] MEDS: TAMSULOSIN HCL 0.4 MG CAPSULE BY MOUTH (21:08)
[2024-10-30] MEDS: DUTASTERIDE 0.5 MG CAPSULE PO (21:08)
[2024-10-30] MEDS: MIRABEGRON 25 MG ER TABLET PO (21:08)
--- NOTE | 2024-10-30 21:32 | WPDPN ---
Progress Note: A&P Assessment and Plan (1) 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: Code(s): M86.9 - Osteomyelitis, unspecified Status: Acute Assessment and Plan: Cellulitis of the right 3rd toe and across the right forefoot has improved. Continue the IV antibiotics. Will plan on partial right 3rd toe amputation on Friday November 01, 2024. Subjective Date/time seen: 10/30/24 21:32 Interval history: Patient clinically stable. No new complaints today. White blood cell count remains normal. Remains on IV antibiotics for his right foot osteomyelitis and cellulitis. Exam Extrem: Other: The right 3rd toe remains stable. There is dry gangrene at the tip. The redness extending to the base of the right 3rd toe and across the right forefoot has improved and is only minimally erythematous at this point. Decreased swelling of the right foot. Objective Data Vital Signs Vital Signs: Vital Signs - 24 hr 10/29/24 22:00 10/30/24 06:00 10/30/24 08:00 Temperature 36.6 C 36.8 C Pulse Rate 61 61 Respiratory Rate 18 18 Blood Pressure 151/51 H 148/61 H Pulse Oximetry 97 99 Oxygen Delivery Room Air 10/30/24 08:25 10/30/24 14:00 Temperature 36.8 C Pulse Rate 66 58 L Respiratory Rate 16 Blood Pressure 128/58 L Pulse Oximetry 98 Oxygen Delivery Intake/Output Intake/Output: Intake & Output 10/27/24 10/28/24 10/29/24 10/30/24 23:59 23:59 23:59 23:59 Intake Total 350 2870 2350 Output Total 1700 1200 Balance 350 1170 1150 Meds/Results Medications: Active Medications Generic Name Dose Route Start Last Admin Trade Name Freq PRN Reason Stop Dose Admin Acetaminophen 650 mg 10/28/24 15:18 Acetaminophen 325 Mg Tablet PO Q4H PRN Mild Pain (1-3) or Fever Hydrocodone Bitart/Acetaminophen 1 tab 10/28/24 15:18 10/30/24 18:59 Hydrocodone/Acetaminophen (*Crx) 5-325 Mg Tablet PO 1 tab Q4H PRN Administration Moderate Pain (4-6) Aspirin 81 mg 10/29/24 09:00 10/30/24 08:25 Aspirin 81 Mg Enteric Tablet PO 81 mg DAILY ALBIN Administration Docusate Sodium 100 mg 10/28/24 17:00 10/30/24 16:14 Docusate Sodium 100 Mg Capsule PO Not Given BID ALBIN Dutasteride 0.5 mg 10/28/24 21:00 10/30/24 21:08 Dutasteride 0.5 Mg Capsule PO 0.5 mg HS ALBIN Administration Enoxaparin Sodium 40 mg 10/29/24 12:45 10/30/24 10:16 Enoxaparin 40 Mg/0.4 Ml Syringe SUB-Q 40 mg DAILY ALBIN Administration Furosemide 20 mg 10/29/24 09:00 10/30/24 08:25 Furosemide 20 Mg Tablet PO 20 mg QAM ALBIN Administration Aztreonam 1 gm in 50 mls @ 100 mls/hr 10/28/24 22:00 10/30/24 21:09 Azactam 1 Gm/Ns 50 Ml IVPB 100 mls/hr Q8H ALBIN Administration Vancomycin HCl 2,000 mg in 500 mls @ 250 mls/hr 10/30/24 03:00 10/30/24 02:40 Vancomycin 2,000 Mg/Ns 500 Ml IVPB 250 mls/hr Q18H ALBIN Administration Losartan Potassium 50 mg 10/29/24 09:00 10/30/24 08:25 Losartan Potassium 50 Mg Tablet PO 50 mg DAILY ALBIN Administration Mirabegron 25 mg 10/28/24 21:00 10/30/24 21:08 Mirabegron 25 Mg Er Tablet PO 25 mg HS ALBIN Administration Morphine Sulfate 2 mg 10/28/24 15:18 Morphine Sulfate (*Crx) 2 Mg/Ml Inj IV PUSH Q4H PRN Pain Rated 7-10 Nebivolol 5 mg 10/29/24 09:00 10/30/24 08:25 Nebivolol Hcl 5 Mg Tablet PO 5 mg DAILY ALBIN Administration Perflutren Lipid Microsphere 0 ml 10/28/24 22:16 Perflutren Lipid Microspheres 1.5 Ml Vial Diluted To 10 Ml Total Volume IV PUSH 10/31/24 22:16 ONCE PRN adequate visualization Protocol Polyethylene Glycol 17 gm 10/29/24 09:00 10/30/24 08:25 Polyethylene Glycol 3350 17 Gm Powd.Pack PO Not Given DAILY ALBIN Rosuvastatin Calcium 10 mg 10/29/24 09:00 10/30/24 08:25 Rosuvastatin 10 Mg Tablet PO 10 mg DAILY ALBIN Administration Sertraline HCl 25 mg 10/29/24 09:00 10/30/24 08:25 Sertraline Hcl 25 Mg Tablet PO 25 mg DAILY ALBIN Administration Tamsulosin HCl 0.4 mg 10/28/24 21:00 10/30/24 21:08 Tamsulosin Hcl 0.4 Mg Capsule BY MOUTH 0.4 mg HS ALBIN Administration Radiology Results: ITS Impressions Toe X-Ray 10/28/24 14:02 IMPRESSION: Erosion at the tuft of the right third distal phalanx consistent with osteomyelitis. Chest X-Ray 10/29/24 00:18 IMPRESSION: No acute cardiopulmonary pathology Labs Labs: Laboratory Results - last 24 hr 10/30/24 10/30/24 01:47 05:58 Creatinine 0.71 Estim Creat Clear Calc 66 Estimated GFR > 60 Vancomycin Trough 10.7
[2024-10-30 22:00] VITALS: BP 134/60; PULSE 58; RESP 16; TEMP 36.5; O2SAT 97
[2024-10-31 06:00] VITALS: BP 142/50; PULSE 60; RESP 16; TEMP 36.7; O2SAT 95
[2024-10-31 06:07] LABS: Estimated CRCL calculation 71 ml/min; Estimated Glomerular Filt Rate > 60
[2024-10-31] MEDS: AZTREONAM 1 GM/NS 50 ML 1 GM/50 ML BAG IVPB ×3 (06:07→21:07)
[2024-10-31] MEDS: ENOXAPARIN 40 MG/0.4 ML SYRINGE SUB-Q (10:26)
[2024-10-31 10:27] VITALS: PULSE 60
[2024-10-31] MEDS: LOSARTAN POTASSIUM 50 MG TABLET PO (10:27)
[2024-10-31] MEDS: SERTRALINE HCL 25 MG TABLET PO (10:27)
[2024-10-31] MEDS: ROSUVASTATIN 10 MG TABLET PO (10:27)
[2024-10-31] MEDS: FUROSEMIDE 20 MG TABLET PO (10:27)
[2024-10-31] MEDS: NEBIVOLOL HCL 5 MG TABLET PO (10:27)
[2024-10-31] MEDS: ASPIRIN 81 MG ENTERIC TABLET PO (10:27)
[2024-10-31] MEDS: DOCUSATE SODIUM 100 MG CAPSULE PO ×2 (10:44→17:52)
--- NOTE | 2024-10-31 11:30 | P.PNIM_ITS ---
Progress Note: A&P Assessment and Plan (1) 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: Code(s): M86.9 - Osteomyelitis, unspecified Status: Acute Assessment and Plan: Surgery consulted for possible amputation IV antibiotics vancomycin and azactam IVF for hydration Blood cultures pending Echocardiogram pending EKG pending Chest x-ray workup pending Patient has no history of diabetes Surgery consulted: notes reviewed:Continue on IV antibiotics over the weekend to treat the cellulitis. Will likely proceed to the operating room early next week for partial amputation of the right 3rd toe. Continue the hold the patient's Xarelto for now for upcoming surgery. surgery for friday (2) Primary hypertension: Code(s): I10 - Essential (primary) hypertension Status: Acute Assessment and Plan: Okay for home antihypertensives (3) Coronary artery disease: Code(s): I25.10 - Atherosclerotic heart disease of [place] coronary artery without angina pectoris Status: Acute Assessment and Plan: Continue statin, Bystolic, losartan and aspirin Currently holding Xarelto incase of OR continue to hold it (4) Hyperlipidemia: Qualifiers: Hyperlipidemia type: unspecified Qualified Code(s): E78.5 - Hyperlipidemia, unspecified Code(s): E78.5 - Hyperlipidemia, unspecified Status: Acute Assessment and Plan: Continue statin (5) Chronic constipation: Code(s): K59.09 - Other constipation Status: Acute Assessment and Plan: Senna (6) Lower extremity edema: Code(s): R60.0 - Localized edema Status: Acute Assessment and Plan: Patient states that he has been on Lasix for the last month for his lower e xtremity swelling neuro improvement, patient does not know if CHF Echocardiogram pending Continue home Lasix at this time may need IV elevate legs jie wrap and/or compressions stockings Time Spent With Patient Time with patient: 25 - 35 minutes Subjective Date/time seen: 10/31/24 11:30 Interval history: Pt is seen and examined. He is eating breakfast. Sounds a bit irritated as staff did not help him eat. Noted that pt is eating by himself just fine. Encouraged as much independence in selfcare as possible. Still needs to call for help with ambulation- states understanding. Continue IV antibiotics for his right foot osteomyelitis and cellulitis. Review of Systems Review of Systems: 12 systems were reviewed and are negativ e except for as per HPI. Exam Narrative: General: well appearing, appears stated age. HEENT: normocephalic, atraumatic. Mucous membranes moist. EOMI, PERRLA, bilateral sclera anicteric, no conjunctival injection. Neck supple without JVD, lymphadenopathy, or bruit. Respiratory: clear to ascultation bilaterally. No rales/rhonic/wheezes. Cardiovascular: Regular rate and rhythm, normal S1-S2 upon ascultation. No murmurs, rubs, or clicks. PMI is nondisplaced, capillary refill less than 3 second. BLE swelling Abdomen: Soft, round, no pulsatile masses, nondistended and nontender. No rebound, no guarding. No CVA tenderness, no hepatosplenomegaly. Bowel sounds present to all four quadrants. No high pitch or tinkling sounds, resonant to percussion. Extremities: No cyanosis, clubbing, or edema present. Pulses are palpable 2/2. Right 3rd toe with necrotic tip, swelling erythema Neuro: Alert and orientated x 4. PERRLA. Cranial nerves 2-12 intact without focal deficit. Skin: Warm, dry, and intact, without rash, erythema, or lesion. Psych: pleasant, cooperative, normal speech, normal affect, no hallucinations, no dysarthia Const: General: comfortable Resp: Effort & Inspection: normal respiratory effort Cardio: Rate: regular rate Rhythm: regular rhythm GI: GI Palp: Yes Soft to palpation Psych: Affect: normal affect Objective Data Vital Signs Vital Signs: Vital Signs - 24 hr 10/30/24 14:00 10/30/24 20:00 10/30/24 20:00 Temperature 98.2 F Pulse Rate 58 L 58 L Respiratory Rate 16 16 Blood Pressure 128/58 L Pulse Oximetry 98 97 97 Oxygen Delivery Room Air Room Air Fraction of Inspired Oxygen 21 10/30/24 22:00 10/31/24 06:00 10/31/24 10:27 Temperature 97.7 F 98.1 F Pulse Rate 58 L 60 60 Respiratory Rate 16 16 Blood Pressure 134/60 142/50 H Pulse Oximetry 97 95 Oxygen Delivery Fraction of Inspired Oxygen Intake/Output Intake/Output: Intake & Output 10/28/24 10/29/24 10/30/24 10/31/24 23:59 23:59 23:59 23:59 Intake Total 350 2870 2900 890 Output Total 1700 1200 1100 Balance 350 1170 1700 -210 Meds/Results Medications: Active Medications Generic Name Dose Route Start Last Admin Trade Name Freq PRN Reason Stop Dose Admin Acetaminophen 650 mg 10/28/24 15:18 Acetaminophen 325 Mg Tablet PO Q4H PRN Mild Pain (1-3) or Fever Hydrocodone Bitart/Acetaminophen 1 tab 10/28/24 15:18 10/30/24 18:59 Hydrocodone/Acetaminophen (*Crx) 5-325 Mg Tablet PO 1 tab Q4H PRN Administration Moderate Pain (4-6) Aspirin 81 mg 10/29/24 09:00 10/31/24 10:27 Aspirin 81 Mg Enteric Tablet PO 81 mg DAILY ALBIN Administration Docusate Sodium 100 mg 10/28/24 17:00 10/31/24 10:44 Docusate Sodium 100 Mg Capsule PO 100 mg BID ALBIN Administration Dutasteride 0.5 mg 10/28/24 21:00 10/30/24 21:08 Dutasteride 0.5 Mg Capsule PO 0.5 mg HS ALBIN Administration Enoxaparin Sodium 40 mg 10/29/24 12:45 10/31/24 10:26 Enoxaparin 40 Mg/0.4 Ml Syringe SUB-Q 40 mg DAILY ALBIN Administration Furosemide 20 mg 10/29/24 09:00 10/31/24 10:27 Furosemide 20 Mg Tablet PO 20 mg QAM ALBIN Administration Aztreonam 1 gm in 50 mls @ 100 mls/hr 10/28/24 22:00 10/31/24 06:37 Azactam 1 Gm/Ns 50 Ml IVPB Infused Q8H ALBIN Infusion Vancomycin HCl 2,000 mg in 500 mls @ 250 mls/hr 10/30/24 03:00 10/31/24 00:35 Vancomycin 2,000 Mg/Ns 500 Ml IVPB Infused Q18H ALBIN Infusion Losartan Potassium 50 mg 10/29/24 09:00 10/31/24 10:27 Losartan Potassium 50 Mg Tablet PO 50 mg DAILY ALBIN Administration Mirabegron 25 mg 10/28/24 21:00 10/30/24 21:08 Mirabegron 25 Mg Er Tablet PO 25 mg HS ALBIN Administration Morphine Sulfate 2 mg 10/28/24 15:18 Morphine Sulfate (*Crx) 2 Mg/Ml Inj IV PUSH Q4H PRN Pain Rated 7-10 Nebivolol 5 mg 10/29/24 09:00 10/31/24 10:27 Nebivolol Hcl 5 Mg Tablet PO 5 mg DAILY ALBIN Administration Perflutren Lipid Microsphere 0 ml 10/28/24 22:16 Perflutren Lipid Microspheres 1.5 Ml Vial Diluted To 10 Ml Total Volume IV PUSH 10/31/24 22:16 ONCE PRN adequate visualization Protocol Polyethylene Glycol 17 gm 10/29/24 09:00 10/31/24 10:26 Polyethylene Glycol 3350 17 Gm Powd.Pack PO 17 gm DAILY ALBIN Administration Rosuvastatin Calcium 10 mg 10/29/24 09:00 10/31/24 10:27 Rosuvastatin 10 Mg Tablet PO 10 mg DAILY ALBIN Administration Sertraline HCl 25 mg 10/29/24 09:00 10/31/24 10:27 Sertraline Hcl 25 Mg Tablet PO 25 mg DAILY ALBIN Administration Tamsulosin HCl 0.4 mg 10/28/24 21:00 10/30/24 21:08 Tamsulosin Hcl 0.4 Mg Capsule BY MOUTH 0.4 mg HS ALBIN Administration Radiology Results: ITS Impressions Toe X-Ray 10/28/24 14:02 IMPRESSION: Erosion at the tuft of the right third distal phalanx consistent with osteomyelitis. Chest X-Ray 10/29/24 00:18 IMPRESSION: No acute cardiopulmonary pathology Labs Labs: Laboratory Results - last 24 hr 10/31/24 05:40 Creatinine 0.66 L Estim Creat Clear Calc 71 Estimated GFR > 60 Quality VTE Prophylaxis VTE prophylaxis: mechanical ordered and pharmacologic ordered
--- NOTE | 2024-10-31 12:48 | WPDPN ---
Progress Note: A&P Assessment and Plan (1) 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: Code(s): M86.9 - Osteomyelitis, unspecified Status: Acute Assessment and Plan: Will proceed with partial amputation of the right 3rd toe tomorrow in the operating room. Will make him NPO except for any meds with a sip of water after midnight and start some IV fluids at maintenance levels. Risks, benefits, indications, and expected outcomes were discussed in detail with the patient and/or family. They understand and I have answered all other questions. They wished to proceed with surgery as outlined above. Subjective Date/time seen: 10/31/24 12:48 Interval history: Patient clinically stable. No complaints. No acute changes to the right foot or right 3rd toe. Exam Extrem: Other: Right 3rd toe with gangrenous changes at the tip. Cellulitis is limited to just the tip of the right 3rd toe. Base of the 3rd toe and the right forefoot cellulitic changes have resolved. There is no redness in those areas now. Objective Data Vital Signs Vital Signs: Vital Signs - 24 hr 10/30/24 14:00 10/30/24 20:00 10/30/24 20:00 Temperature 36.8 C Pulse Rate 58 L 58 L Respiratory Rate 16 16 Blood Pressure 128/58 L Pulse Oximetry 98 97 97 Oxygen Delivery Room Air Room Air Fraction of Inspired Oxygen 21 10/30/24 22:00 10/31/24 06:00 10/31/24 10:27 Temperature 36.5 C 36.7 C Pulse Rate 58 L 60 60 Respiratory Rate 16 16 Blood Pressure 134/60 142/50 H Pulse Oximetry 97 95 Oxygen Delivery Fraction of Inspired Oxygen Intake/Output Intake/Output: Intake & Output 10/28/24 10/29/24 10/30/24 10/31/24 23:59 23:59 23:59 23:59 Intake Total 350 2870 2900 1370 Output Total 1700 1200 1100 Balance 350 1170 1700 270 Meds/Results Medications: Active Medications Generic Name Dose Route Start Last Admin Trade Name Freq PRN Reason Stop Dose Admin Acetaminophen 650 mg 10/28/24 15:18 Acetaminophen 325 Mg Tablet PO Q4H PRN Mild Pain (1-3) or Fever Hydrocodone Bitart/Acetaminophen 1 tab 10/28/24 15:18 10/30/24 18:59 Hydrocodone/Acetaminophen (*Crx) 5-325 Mg Tablet PO 1 tab Q4H PRN Administration Moderate Pain (4-6) Aspirin 81 mg 10/29/24 09:00 10/31/24 10:27 Aspirin 81 Mg Enteric Tablet PO 81 mg DAILY ALBIN Administration Docusate Sodium 100 mg 10/28/24 17:00 10/31/24 10:44 Docusate Sodium 100 Mg Capsule PO 100 mg BID ALBIN Administration Dutasteride 0.5 mg 10/28/24 21:00 10/30/24 21:08 Dutasteride 0.5 Mg Capsule PO 0.5 mg HS ALBIN Administration Enoxaparin Sodium 40 mg 10/29/24 12:45 10/31/24 10:26 Enoxaparin 40 Mg/0.4 Ml Syringe SUB-Q 40 mg DAILY ALBIN Administration Furosemide 20 mg 10/29/24 09:00 10/31/24 10:27 Furosemide 20 Mg Tablet PO 20 mg QAM ALBIN Administration Aztreonam 1 gm in 50 mls @ 100 mls/hr 10/28/24 22:00 10/31/24 06:37 Azactam 1 Gm/Ns 50 Ml IVPB Infused Q8H ALBIN Infusion Vancomycin HCl 2,000 mg in 500 mls @ 250 mls/hr 10/30/24 03:00 10/31/24 00:35 Vancomycin 2,000 Mg/Ns 500 Ml IVPB Infused Q18H ALBIN Infusion Losartan Potassium 50 mg 10/29/24 09:00 10/31/24 10:27 Losartan Potassium 50 Mg Tablet PO 50 mg DAILY ALBIN Administration Mirabegron 25 mg 10/28/24 21:00 10/30/24 21:08 Mirabegron 25 Mg Er Tablet PO 25 mg HS ALBIN Administration Morphine Sulfate 2 mg 10/28/24 15:18 Morphine Sulfate (*Crx) 2 Mg/Ml Inj IV PUSH Q4H PRN Pain Rated 7-10 Nebivolol 5 mg 10/29/24 09:00 10/31/24 10:27 Nebivolol Hcl 5 Mg Tablet PO 5 mg DAILY ALBIN Administration Perflutren Lipid Microsphere 0 ml 10/28/24 22:16 Perflutren Lipid Microspheres 1.5 Ml Vial Diluted To 10 Ml Total Volume IV PUSH 10/31/24 22:16 ONCE PRN adequate visualization Protocol Polyethylene Glycol 17 gm 10/29/24 09:00 10/31/24 10:26 Polyethylene Glycol 3350 17 Gm Powd.Pack PO 17 gm DAILY ALBIN Administration Rosuvastatin Calcium 10 mg 10/29/24 09:00 10/31/24 10:27 Rosuvastatin 10 Mg Tablet PO 10 mg DAILY ALBIN Administration Sertraline HCl 25 mg 10/29/24 09:00 10/31/24 10:27 Sertraline Hcl 25 Mg Tablet PO 25 mg DAILY ALBIN Administration Tamsulosin HCl 0.4 mg 10/28/24 21:00 10/30/24 21:08 Tamsulosin Hcl 0.4 Mg Capsule BY MOUTH 0.4 mg HS ALBIN Administration Radiology Results: ITS Impressions Toe X-Ray 10/28/24 14:02 IMPRESSION: Erosion at the tuft of the right third distal phalanx consistent with osteomyelitis. Chest X-Ray 10/29/24 00:18 IMPRESSION: No acute cardiopulmonary pathology Labs Labs: Laboratory Results - last 24 hr 10/31/24 05:40 Creatinine 0.66 L Estim Creat Clear Calc 71 Estimated GFR > 60
[2024-10-31 14:00] VITALS: BP 130/62; PULSE 58; RESP 20; TEMP 36.6; O2SAT 97
[2024-10-31] MEDS: VANCOMYCIN 1,750 MG/NS 500 ML 1,750 MG/500 ML BAG 250 MG IVPB (17:49)
[2024-10-31 20:00] VITALS: PULSE 56; RESP 20; O2SAT 95
[2024-10-31] MEDS: SODIUM CHLORIDE 0.9% IV 1,000 ML 75 ML IV CONT (21:07)
[2024-10-31] MEDS: TAMSULOSIN HCL 0.4 MG CAPSULE BY MOUTH (21:08)
[2024-10-31] MEDS: MIRABEGRON 25 MG ER TABLET PO (21:08)
[2024-10-31] MEDS: DUTASTERIDE 0.5 MG CAPSULE PO (21:08)
[2024-10-31 21:31] VITALS: BP 150/55; PULSE 56; RESP 20; TEMP 36.1; O2SAT 95
[2024-11-01] VITALS (14 sets, daily range): BP systolic 124–168; BP diastolic 53–98; PULSE 53–70; RESP 12–20; TEMP 36.1–36.7; O2SAT 94–99
[2024-11-01] MEDS: AZTREONAM 1 GM/NS 50 ML 1 GM/50 ML BAG IVPB ×3 (04:54→22:17)
[2024-11-01] MEDS: VANCOMYCIN 1,750 MG/NS 500 ML 1,750 MG/500 ML BAG 250 MG IVPB ×2 (05:27→16:57)
[2024-11-01] MEDS: NEBIVOLOL HCL 5 MG TABLET PO (09:18)
[2024-11-01] MEDS: FUROSEMIDE 20 MG TABLET PO (09:19)
[2024-11-01] MEDS: SERTRALINE HCL 25 MG TABLET PO (09:20)
--- NOTE | 2024-11-01 14:04 | WPDHPUPDATE1 ---
History and Physical Update Update Date/Time: 11/01/24 14:04 History and Physical has been reviewed, including an updated exam of the patient. There are NO changes in the patient's condition. Risks, benefits, and alternatives have been discussed and questions answered. Patient agrees to proceed with procedure.
[2024-11-01] MEDS: BUPIVACAINE/EPINEPHRINE 0.5% 50 ML VIAL 20 ML INFILTRATE (14:36)
[2024-11-01] MEDS: LIDOCAINE 1% LOCAL INJ 10 ML VIAL 20 ML INFILTRATE (14:37)
--- NOTE | 2024-11-01 14:43 | S_PTH ---
PATIENT: Deep Lewis LOC: [id number] U#:[id number] AGE/SX: 88/M ROOM: 333 RE10/29/[address]: Fabiola Keyes PA-C : 1935 BED: 01 DIS: 11/04/2024 SPEC #: [id number] RECD: 11/02/24 09:00 STATUS: JESSICA CASTILLO #: [id number] SAUL: 11/01/24 14:[address]: Didier Serrano DEPT: [facility] Surgical RECD BY: Stefano Hazel ENTERED: 11/02/24 09:00 SP TYPE: Surgical OTHR DR: MD Fern Espinoza MD Tissues: A - Toe Procedures: Hematoxylin and Eosin Stain Gross and Microscopic Level 4 Decalcification
--- NOTE | 2024-11-01 14:51 | P.PNIM_ITS ---
Progress Note: A&P Assessment and Plan (1) 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: Code(s): M86.9 - Osteomyelitis, unspecified Status: Acute Assessment and Plan: Surgery consulted for possible amputation IV antibiotics vancomycin and azactam IVF for hydration Blood cultures pending Echocardiogram pending EKG pending Chest x-ray workup pending Patient has no history of diabetes Surgery consulted: notes reviewed:Continue on IV antibiotics over the weekend to treat the cellulitis. Will likely proceed to the operating room early next week for partial amputation of the right 3rd toe. Continue the hold the patient's Xarelto for now for upcoming surgery. surgery for wednesday 11/01 surgery today (2) Primary hypertension: Code(s): I10 - Essential (primary) hypertension Status: Acute Assessment and Plan: Okay for home antihypertensives (3) Coronary artery disease: Code(s): I25.10 - Atherosclerotic heart disease of [place] coronary artery without angina pectoris Status: Acute Assessment and Plan: Continue statin, Bystolic, losartan and aspirin Currently holding Xarelto incase of OR continue to hold it (4) Hyperlipidemia: Qualifiers: Hyperlipidemia type: unspecified Qualified Code(s): E78.5 - Hyperlipidemia, unspecified Code(s): E78.5 - Hyperlipidemia, unspecified Status: Acute Assessment and Plan: Continue statin (5) Chronic constipation: Code(s): K59.09 - Other constipation Status: Acute Assessment and Plan: Senna (6) Lower extremity edema: Code(s): R60.0 - Localized edema Status: Acute Assessment and Plan: Patient states that he has been on Lasix for the last month for his lower extremity swelling neuro improvement, patient does not know if CHF Echocardiogram pending Continue home Lasix at this time may need IV elevate legs jie wrap and/or compressions stockings Time Spent With Patient Time with patient: 25 - 35 minutes Subjective Date/time seen: 11/01/24 14:51 Interval history: Surgery is todya. No acute events overnight. Pt is resting with eyes closed, no n/v/d Review of Systems Review of Systems: 12 systems were reviewed and are negativ e except for as per HPI. Exam Narrative: General: well appearing, appears stated age. HEENT: normocephalic, atraumatic. Mucous membranes moist. EOMI, PERRLA, bilateral sclera anicteric, no conjunctival injection. Neck supple without JVD, lymphadenopathy, or bruit. Respiratory: clear to ascultation bilaterally. No rales/rhonic/wheezes. Cardiovascular: Regular rate and rhythm, normal S1-S2 upon ascultation. No murmurs, rubs, or clicks. PMI is nondisplaced, capillary refill less than 3 second. BLE swelling Abdomen: Soft, round, no pulsatile masses, nondistended and nontender. No rebound, no guarding. No CVA tenderness, no hepatosplenomegaly. Bowel sounds present to all four quadrants. No high pitch or tinkling sounds, resonant to percussion. Extremities: No cyanosis, clubbing, or edema present. Pulses are palpable 2/2. Right 3rd toe with necrotic tip, swelling erythema Neuro: Alert and orientated x 4. PERRLA. Cranial nerves 2-12 intact without focal deficit. Skin: Warm, dry, and intact, without rash, erythema, or lesion. Psych: pleasant, cooperative, normal speech, normal affect, no hallucinations, no dysarthia Const: General: comfortable Resp: Effort & Inspection: normal respiratory effort Cardio: Rate: regular rate Rhythm: regular rhythm Psych: Affect: normal affect Objective Data Vital Signs Vital Signs: Vital Signs - 24 hr 10/31/24 20:00 10/31/24 21:31 11/01/24 06:00 Temperature 97.0 F L 97.2 F L Pulse Rate 56 L 56 L 60 Respiratory Rate 20 20 20 Blood Pressure 150/55 H 147/63 H Pulse Oximetry 95 95 94 Oxygen Delivery Room Air Fraction of Inspired Oxygen 21 11/01/24 08:00 11/01/24 09:18 11/01/24 12:36 Temperature 97.9 F Pulse Rate 64 56 L Respiratory Rate 18 Blood Pressure 150/53 H Pulse Oximetry 94 97 Oxygen Delivery Room Air Room Air Fraction of Inspired Oxygen Intake/Output Intake/Output: Intake & Output 10/29/24 10/30/24 10/31/24 11/01/24 23:59 23:59 23:59 23:59 Intake Total 2870 2900 2210 300 Output Total 1700 1200 1100 600 Balance 1170 1700 1110 -300 Meds/Results Medications: Active Medications Generic Name Dose Route Start Last Admin Trade Name Freq PRN Reason Stop Dose Admin Acetaminophen 650 mg 10/28/24 15:18 Acetaminophen 325 Mg Tablet PO Q4H PRN Mild Pain (1-3) or Fever Hydrocodone Bitart/Acetaminophen 1 tab 10/28/24 15:18 10/30/24 18:59 Hydrocodone/Acetaminophen (*Crx) 5-325 Mg Tablet PO 1 tab Q4H PRN Administration Moderate Pain (4-6) Aspirin 81 mg 10/29/24 09:00 11/01/24 09:17 Aspirin 81 Mg Enteric Tablet PO Not Given DAILY ALBIN Bupivacaine HCl/Epinephrine Bitart 20 ml 11/01/24 14:36 11/01/24 14:36 Bupivacaine/Epinephrine 0.5% 50 Ml Vial INFILTRATE 11/01/24 14:37 20 ml ONCE ONE Administration Docusate Sodium 100 mg 10/28/24 17:00 11/01/24 09:17 Docusate Sodium 100 Mg Capsule PO Not Given BID ALBIN Dutasteride 0.5 mg 10/28/24 21:00 10/31/24 21:08 Dutasteride 0.5 Mg Capsule PO 0.5 mg HS ALBIN Administration Enoxaparin Sodium 40 mg 10/29/24 12:45 10/31/24 10:26 Enoxaparin 40 Mg/0.4 Ml Syringe SUB-Q 40 mg DAILY ALBIN Administration Fentanyl Citrate 25 mcg 11/01/24 14:02 Fentanyl Citrate Inj (*Crx) 100 Mcg/2 Ml Vial IV PUSH Q2M PRN Pain Furosemide 20 mg 10/29/24 09:00 11/01/24 09:19 Furosemide 20 Mg Tablet PO 20 mg QAM ALBIN Administration Aztreonam 1 gm in 50 mls @ 100 mls/hr 10/28/24 22:00 11/01/24 14:27 Azactam 1 Gm/Ns 50 Ml IVPB Infused Q8H ALBIN Infusion Sodium Chloride 1,000 mls @ 75 mls/hr 10/31/24 23:55 10/31/24 21:07 Normal Saline Iv IV CONT 75 mls/hr .[id number] ALBIN Administration Vancomycin HCl 1,750 mg in 500 mls @ 250 mls/hr 10/31/24 16:00 11/01/24 05:27 Vancomycin 1,750 Mg/Ns 500 Ml IVPB 250 mls/hr Q12H ALBIN Administration Lactated Ringer's 1,000 mls @ 30 mls/hr 11/01/24 14:00 Lr - Lactated Ringers Iv IV CONT .Q24H ALBIN Lactated Ringer's 1,000 mls @ 30 mls/hr 11/01/24 14:05 Lr - Lactated Ringers Iv IV CONT .Q24H ALBIN Lidocaine HCl 20 ml 11/01/24 14:36 11/01/24 14:37 Lidocaine 1% Local Inj 10 Ml Vial INFILTRATE 11/01/24 14:37 20 ml ONCE ONE Administration Losartan Potassium 50 mg 10/29/24 09:00 11/01/24 09:17 Losartan Potassium 50 Mg Tablet PO Not Given DAILY ALBIN Mirabegron 25 mg 10/28/24 21:00 10/31/24 21:08 Mirabegron 25 Mg Er Tablet PO 25 mg HS ALBIN Administration Morphine Sulfate 2 mg 10/28/24 15:18 Morphine Sulfate (*Crx) 2 Mg/Ml Inj IV PUSH Q4H PRN Pain Rated 7-10 Nebivolol 5 mg 10/29/24 09:00 11/01/24 09:18 Nebivolol Hcl 5 Mg Tablet PO 5 mg DAILY ALBIN Administration Ondansetron HCl 4 mg 11/01/24 14:02 Ondansetron Inj 4 Mg/2 Ml Vial IV PUSH ONCE PRN Nausea Polyethylene Glycol 17 gm 10/29/24 09:00 11/01/24 09:17 Polyethylene Glycol 3350 17 Gm Powd.Pack PO Not Given DAILY ALBIN Rosuvastatin Calcium 10 mg 10/29/24 09:00 11/01/24 09:18 Rosuvastatin 10 Mg Tablet PO Not Given DAILY ALBIN Sertraline HCl 25 mg 10/29/24 09:00 11/01/24 09:20 Sertraline Hcl 25 Mg Tablet PO 25 mg DAILY ALBIN Administration Tamsulosin HCl 0.4 mg 10/28/24 21:00 10/31/24 21:08 Tamsulosin Hcl 0.4 Mg Capsule BY MOUTH 0.4 mg HS ALBIN Administration Radiology Results: ITS Impressions Toe X-Ray 10/28/24 14:02 IMPRESSION: Erosion at the tuft of the right third distal phalanx consistent with osteomyelitis. Chest X-Ray 10/29/24 00:18 IMPRESSION: No acute cardiopulmonary pathology Quality VTE Prophylaxis VTE prophylaxis: mechanical ordered and pharmacologic ordered
--- NOTE | 2024-11-01 15:14 | P.OP_ITS ---
Procedure Note - Detailed Date of Procedure 11/01/24 Pre-op Diagnosis Osteomyelitis Right 3rd Toe with ulcer Post-op Diagnosis Same Procedure Performed Partial amputation right 3rd toe Surgeon Didier Serrano MD Tumbler Machine Operator Cyndi TORRES Anesthesia MAC and Local Indications Patient is a 88-year-old gentleman who has had a callus on the tip of his right 3rd toe. It has been removed on 2 other occasions by his medical donation professional. This time on his 3rd occasion the wound did not heal and he has developed an ulcer with osteomyelitis of the tip of the right 3rd toe. He was admitted to the hospital with some saline changes of the toe which is now resolved with IV antibiotics. He now presents for partial amputation of the right 3rd toe. Findings The base of the right 3rd toe and proximal phalanx were all viable. There is no redness of the skin. The tip of the right 3rd toe had dry gangrene. Description of Procedure After informed consent was obtained patient brought to the operating room was placed supine position and IV sedation was administered by anesthesia. The right foot was then prepped and draped usual sterile fashion to just proximal to the right ankle. Time-out was then performed correctly identifying the patient as well as procedure to be performed verifying site marking. He was already on scheduled IV antibiotics. I then proceeded to inject 1% lidocaine mixed with 0.5% Marcaine without epinephrine circumferentially around the base of the right 3rd toe for a digital block. I then proceeded to make an incision around the distal part of the toe creating a posterior plantar cutaneous flap for closure. Is Fozia deeply down through the soft tissues to the phalanx. I then the periosteal elevator to elevate the periosteum off of the phalanx. I then used a small bone cutter to divide the distal phalanx proximal to the diseased bone. The bone was not brittle or soft and seemed to be viable. The distal part of the right 3rd toe which was amputated was then sent to pathology. There was small amount of bleeding from the soft tissues and skin edges. I then irrigated out the incision sterile saline solution. Hemostasis was good. Closed the soft tissue flap over the end of the phalanx. This is then with displacement of interrupted 3-0 Vicryl sutures. The skin edges were then approximated utilizing interrupted 3-0 nylon sutures placed in a vertical mattress fashion. The incision was then cleaned and then Xeroform gauze was placed over the incision line and then wrapped with 4x4 gauze, Kerlix gauze, and Osmel wrap. The patient tolerated the procedure well no complications. All sponges, needles, and instrument counts were correct at the end procedure. EBL was _5__cc. The patient was awakened and taken to recovery in stable and satisfactory condition. Implants None Estimated Blood Loss 5 Urine Output 500 Drains No Packing No Pathology Yes (Distal part of right 3rd toe sent to pathology) Complications No immediate complications Condition Stable Disposition PACU [facility] Billing Surgery - Charge Forward: Surgery Billing
[2024-11-01] MEDS: DOCUSATE SODIUM 100 MG CAPSULE PO (16:58)
[2024-11-01] MEDS: TAMSULOSIN HCL 0.4 MG CAPSULE BY MOUTH (21:58)
[2024-11-01] MEDS: DUTASTERIDE 0.5 MG CAPSULE PO (21:58)
[2024-11-01] MEDS: MIRABEGRON 25 MG ER TABLET PO (21:58)
[2024-11-02 03:27] LABS: Estimated CRCL calculation 69 ml/min; Estimated Glomerular Filt Rate > 60
[2024-11-02] MEDS: AZTREONAM 1 GM/NS 50 ML 1 GM/50 ML BAG IVPB (05:05)
--- NOTE | 2024-11-02 07:16 | WPDANESPN ---
Anes - Prog Note Post-Op Date/Time: 11/02/24 07:16 Cardiovascular status: normal Respiratory status: normal Airway patency: baseline Mental status: baseline Post-Op hydration status: normal Vital Signs: Last Vital Signs Temp 36.1 C L 11/01/24 21:00 Pulse 57 L 11/01/24 21:00 Resp 20 11/01/24 21:00 BP 156/57 H 11/01/24 21:00 Pulse Ox 98 11/01/24 21:00 O2 Del Method Room Air 11/01/24 21:58 O2 Flow Rate 8 11/01/24 15:04 FiO2 21 10/31/24 20:00 Pain Score (VAS): 2 I/O: Intake & Output 11/01/24 11/01/24 11/02/24 15:59 23:59 07:59 Intake Total 50 840 50 Output Total 500 1500 900 Balance -450 -660 -850 Laboratory Tests 10/29/24 05:58 11/02/24 03:06 11/02/24 03:06 Creatinine 0.68 L Estim Creat Clear Calc 69 Estimated GFR > 60 Vancomycin Trough 21.0 H Post-procedural complaints: none Patient Feedback: Patient satisfied with anesthetic care.
[2024-11-02 09:38] VITALS: BP 119/50; PULSE 72
[2024-11-02] MEDS: FUROSEMIDE 20 MG TABLET PO (09:42)
[2024-11-02] MEDS: ROSUVASTATIN 10 MG TABLET PO (09:42)
[2024-11-02 09:43] VITALS: PULSE 76
[2024-11-02] MEDS: LOSARTAN POTASSIUM 50 MG TABLET PO (09:43)
[2024-11-02] MEDS: ASPIRIN 81 MG ENTERIC TABLET PO (09:43)
[2024-11-02] MEDS: ENOXAPARIN 40 MG/0.4 ML SYRINGE SUB-Q (09:43)
[2024-11-02] MEDS: NEBIVOLOL HCL 5 MG TABLET PO (09:43)
[2024-11-02] MEDS: SERTRALINE HCL 25 MG TABLET PO (09:43)
[2024-11-02] MEDS: DOCUSATE SODIUM 100 MG CAPSULE PO (09:43)
[2024-11-02] MEDS: VANCOMYCIN 1,500 MG/NS 500 ML 1,500 MG/500 ML BAG 250 MG IVPB (09:48)
--- NOTE | 2024-11-02 11:53 | P.PNIM_ITS ---
Progress Note: A&P Assessment and Plan (1) 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: Code(s): M86.9 - Osteomyelitis, unspecified <Rhonda Villeda, [employer]ER - Last Filed: 11/02/24 14:15> Status: Acute <Rhonda Villeda, [employer]ER - Last Filed: 11/02/24 14:15> Assessment and Plan: Surgery consulted for possible amputation IV antibiotics vancomycin and azactam IVF for hydration Blood cultures pending Echocardiogram pending EKG pending Chest x-ray workup pending Patient has no history of diabetes Surgery consulted: notes reviewed:Continue on IV antibiotics over the weekend to treat the cellulitis. Will likely proceed to the operating room early next week for partial amputation of the right 3rd toe. Continue the hold the patient's Xarelto for now for upcoming surgery. surgery for wednesday 11/01 surgery today 11/02 post op day1 partial amputation of right 3rd toe. Dressing was changed per surgery at the bedside with xeroform gauze and 4x4's and kerlex. Continue to wrap lower legs and feet with jie wrap for compression. Patient may be weight bearing on the right lower extremity if he is wearing his postop shoe. PT/OT ordered - Okay to transition to oral antibiotics per surgery. Disc. He will need another 1-2 weeks of oral antibiotics eventually once discharged... He may be stable for discharge at the earliest Friday or if healing well. We will eventually plan to have him follow-up with Dr. Serrano in the office in 2 weeks. downgraded to Omnicef- 300 mg q12h -28 total dose,last day-11/15 2099, doxy 100 gm q12h 27 doses, last dose 11/15 2099 <Rhonda Villeda [employer] - Last Filed: 11/02/24 14:15> (2) Primary hypertension: Code(s): I10 - Essential (primary) hypertension <Rhonda Villeda [employer]ER - Last Filed: 11/02/24 14:15> Status: Acute <Rhonda Villeda, [employer]ER - Last Filed: 11/02/24 14:15> Assessment and Plan: Okay for home antihypertensives <Rhonda Villeda, [employer]ER - Last Filed: 11/02/24 14:15> (3) Coronary artery disease: Code(s): I25.10 - Atherosclerotic heart disease of [place] coronary artery without angina pectoris <Rhonda Villeda APRN - Last Filed: 11/02/24 14:15> Status: Acute <Rhonda Villeda, [employer]ER - Last Filed: 11/02/24 14:15> Assessment and Plan: Continue statin, Bystolic, losartan and aspirin Currently holding Xarelto incase of OR continue to hold it <Rhonda Villeda [employer]ER - Last Filed: 11/02/24 14:15> (4) Hyperlipidemia: Qualifiers: Hyperlipidemia type: unspecified Qualified Code(s): E78.5 - Hyperlipidemia, unspecified <Rhonda Villeda, [employer]ER - Last Filed: 11/02/24 14:15> Code(s): E78.5 - Hyperlipidemia, unspecified <Rhonda Ross Ronal, [employer]ER - Last Filed: 11/02/24 14:15> Status: Acute <Rhonda ShashankLise Ronal, [employer]ER - Last Filed: 11/02/24 14:15> Assessment and Plan: Continue statin <Rhonda Villeda, [employer]ER - Last Filed: 11/02/24 14:15> (5) Chronic constipation: Code(s): K59.09 - Other constipation <Rhonda Villeda, [employer] E[employer]ER - Last Filed: 11/02/24 14:15> Status: Acute <Rhonda Villeda, [employer] E[employer]ER - Last Filed: 11/02/24 14:15> Assessment and Plan: Senna <Rhonda Villeda, [employer] E[employer]IZER - Last Filed: 11/02/24 14:15> (6) Lower extremity edema: Code(s): R60.0 - Localized edema <Rhonda Villeda, [employer]ER - Last Filed: 11/02/24 14:15> Status: Acute <Rhonda Villeda, [employer]ER - Last Filed: 11/02/24 14:15> Assessment and Plan: Patient states that he has been on Lasix for the last month for his lower extremity swelling neuro improvement, patient does not know if CHF Echocardiogram pending Continue home Lasix at this time may need IV elevate legs jie wrap and/or compressions stockings <Rhonda Villeda [employer]ER - Last Filed: 11/02/24 14:15> Time Spent With Patient Time with patient: 25 - 35 minutes <Rhonda Villeda [employer]ER - Last Filed: 11/02/24 14:15> Subjective Date/time seen: 11/02/24 11:53 <Rhonda Villeda [employer]ER - Last Filed: 11/02/24 14:15> Interval history: 11/01 Surgery is today. No acute events overnight. Pt is resting with eyes closed, no n/v/d. 11/02 pt is seen and examined. He was moved closer to nurses station as he got confused last night after simi procedure. This morning, he is alert and oriented, pain is well controlled. surgery saw him in am, dressing was changed per surgery. <Rhonda Villeda [employer]ER - Last Filed: 11/02/24 14:15> 11/01 Surgery is today. No acute events overnight. Pt is resting with eyes closed, no n/v/d. 11/02 <Antwan Alicia, Student - Last Filed: 11/02/24 14:05> Review of Systems Review of Systems: 12 systems were reviewed and are negativ e except for as per HPI. <Rhonda Villeda [employer]ER - Last Filed: 11/02/24 14:15> Exam Narrative: General: well appearing, appears stated age. HEENT: normocephalic, atraumatic. Mucous membranes moist. EOMI, PERRLA, bilateral sclera anicteric, no conjunctival injection. Neck supple without JVD, lymphadenopathy, or bruit. Respiratory: clear to ascultation bilaterally. No rales/rhonic/wheezes. Cardiovascular: Regular rate and rhythm, normal S1-S2 upon ascultation. No murmurs, rubs, or clicks. PMI is nondisplaced, capillary refill less than 3 second. BLE swelling Abdomen: Soft, round, no pulsatile masses, nondistended and nontender. No rebound, no guarding. No CVA tenderness, no hepatosplenomegaly. Bowel sounds present to all four quadrants. No high pitch or tinkling sounds, resonant to percussion. Extremities: No cyanosis, clubbing, or edema present. Pulses are palpable 2/2. Right 3rd toe with necrotic tip, swelling erythema Neuro: Alert and orientated x 4. PERRLA. Cranial nerves 2-12 intact without focal deficit. Skin: Warm, dry, and intact, without rash, erythema, or lesion. Psych: pleasant, cooperative, normal speech, normal affect, no hallucinations, no dysarthia <Rhonda Villeda, [employer] E[employer]IZER - Last Filed: 11/02/24 14:15> Const: General: comfortable <Rhonda Villeda [employer] E[employer]IZER - Last Filed: 11/02/24 14:15> Resp: Effort & Inspection: normal respiratory effort <Rhonda Villeda [employer] E[employer]IZER - Last Filed: 11/02/24 14:15> Cardio: Rate: regular rate <Rhonda Villeda [employer] E[employer]IZER - Last Filed: 11/02/24 14:15> Rhythm: regular rhythm <Rhonda Villeda [employer] E[employer]ER - Last Filed: 11/02/24 14:15> Psych: Affect: normal affect <Rhonda Villeda [employer] E[employer]ER - Last Filed: 11/02/24 14:15> Objective Data Vital Signs Vital Signs: Vital Signs - 24 hr 11/01/24 12:36 11/01/24 15:04 11/01/24 15:15 Temperature 97.9 F 97.8 F Pulse Rate 56 L 58 L 62 Respiratory Rate 18 14 18 Blood Pressure 150/53 H 135/59 L 144/65 H Pulse Oximetry 97 97 98 Oxygen Delivery Room Air Simple Face Mask Room Air Oxygen Flow Rate 8 11/01/24 15:30 11/01/24 15:45 11/01/24 16:00 Temperature 97.9 F Pulse Rate 59 L 53 L 65 Respiratory Rate 14 12 14 Blood Pressure 156/63 H 149/57 H 150/77 H Pulse Oximetry 98 95 94 Oxygen Delivery Room Air Room Air Room Air Oxygen Flow Rate 11/01/24 16:35 11/01/24 16:50 11/01/24 17:30 Temperature 97.8 F 97.8 F 98.0 F Pulse Rate 57 L 60 70 Respiratory Rate 17 16 16 Blood Pressure 168/62 H 168/64 H 166/98 H Pulse Oximetry 97 99 97 Oxygen Delivery Oxygen Flow Rate 11/01/24 18:30 11/01/24 21:00 11/01/24 21:58 Temperature 98.1 F 97.0 F L Pulse Rate 62 57 L Respiratory Rate 16 20 Blood Pressure 124/78 156/57 H Pulse Oximetry 98 98 Oxygen Delivery Room Air Oxygen Flow Rate 11/02/24 09:00 11/02/24 09:38 11/02/24 09:40 Temperature Pulse Rate 72 Respiratory Rate Blood Pressure 119/50 L Pulse Oximetry Oxygen Delivery Room Air Room Air Oxygen Flow Rate 11/02/24 09:43 Temperature Pulse Rate 76 Respiratory Rate Blood Pressure Pulse Oximetry Oxygen Delivery Oxygen Flow Rate <Rhonda Villeda, [employer] E[employer]IZER - Last Filed: 11/02/24 14:15> Intake/Output Intake/Output: Intake & Output 10/30/24 10/31/24 11/01/24 11/02/24 23:59 23:59 23:59 23:59 Intake Total 2900 2210 1640 250 Output Total 1200 1100 2600 900 Balance 1700 1110 -960 -650 <Rhonda Villeda [employer] E[employer]ER - Last Filed: 11/02/24 14:15> Meds/Results Medications: Active Medications Generic Name Dose Route Start Last Admin Trade Name Freq PRN Reason Stop Dose Admin Acetaminophen 650 mg 10/28/24 15:18 Acetaminophen 325 Mg Tablet PO Q4H PRN Mild Pain (1-3) or Fever Hydrocodone Bitart/Acetaminophen 1 tab 10/28/24 15:18 10/30/24 18:59 Hydrocodone/Acetaminophen (*Crx) 5-325 Mg Tablet PO 1 tab Q4H PRN Administration Moderate Pain (4-6) Aspirin 81 mg 10/29/24 09:00 11/02/24 09:43 Aspirin 81 Mg Enteric Tablet PO 81 mg DAILY ALBIN Administration Docusate Sodium 100 mg 10/28/24 17:00 11/02/24 09:43 Docusate Sodium 100 Mg Capsule PO 100 mg BID ALBIN Administration Dutasteride 0.5 mg 10/28/24 21:00 11/01/24 21:58 Dutasteride 0.5 Mg Capsule PO 0.5 mg HS ALBIN Administration Enoxaparin Sodium 40 mg 10/29/24 12:45 11/02/24 09:43 Enoxaparin 40 Mg/0.4 Ml Syringe SUB-Q 40 mg DAILY ALBIN Administration Furosemide 20 mg 10/29/24 09:00 11/02/24 09:42 Furosemide 20 Mg Tablet PO 20 mg QAM ALBIN Administration Aztreonam 1 gm in 50 mls @ 100 mls/hr 10/28/24 22:00 11/02/24 05:35 Azactam 1 Gm/Ns 50 Ml IVPB Infused Q8H ALBIN Infusion Vancomycin HCl 1,500 mg in 500 mls @ 250 mls/hr 11/02/24 09:00 11/02/24 09:48 Vancomycin 1,500 Mg/Ns 500 Ml IVPB 250 mls/hr Q12H ALBIN Administration Losartan Potassium 50 mg 10/29/24 09:00 11/02/24 09:43 Losartan Potassium 50 Mg Tablet PO 50 mg DAILY ALBIN Administration Mirabegron 25 mg 10/28/24 21:00 11/01/24 21:58 Mirabegron 25 Mg Er Tablet PO 25 mg HS ALBIN Administration Morphine Sulfate 2 mg 10/28/24 15:18 Morphine Sulfate (*Crx) 2 Mg/Ml Inj IV PUSH Q4H PRN Pain Rated 7-10 Nebivolol 5 mg 10/29/24 09:00 11/02/24 09:43 Nebivolol Hcl 5 Mg Tablet PO 5 mg DAILY ALBIN Administration Polyethylene Glycol 17 gm 10/29/24 09:00 11/02/24 09:46 Polyethylene Glycol 3350 17 Gm Powd.Pack PO Not Given DAILY [facility] Rosuvastatin Calcium 10 mg 10/29/24 09:00 11/02/24 09:42 Rosuvastatin 10 Mg Tablet PO 10 mg DAILY ALBIN Administration Sertraline HCl 25 mg 10/29/24 09:00 11/02/24 09:43 Sertraline Hcl 25 Mg Tablet PO 25 mg DAILY ALBIN Administration Tamsulosin HCl 0.4 mg 10/28/24 21:00 11/01/24 21:58 Tamsulosin Hcl 0.4 Mg Capsule BY MOUTH 0.4 mg HS ALBIN Administration <Rhonda Villeda APRN - Last Filed: 11/02/24 14:15> Radiology Results: ITS Impressions Toe X-Ray 10/28/24 14:02 IMPRESSION: Erosion at the tuft of the right third distal phalanx consistent with osteomyelitis. Chest X-Ray 10/29/24 00:18 IMPRESSION: No acute cardiopulmonary pathology <Rhonda Villeda APRN - Last Filed: 11/02/24 14:15> Labs Labs: Laboratory Results - last 24 hr 11/02/24 03:06 Creatinine 0.68 L Estim Creat Clear Calc 69 Estimated GFR > 60 Vancomycin Trough 21.0 H <Rhonda Villeda APRN - Last Filed: 11/02/24 14:15> Quality VTE Prophylaxis VTE prophylaxis: mechanical ordered and pharmacologic ordered <Rhonda Villeda APRN - Last Filed: 11/02/24 14:15>
--- NOTE | 2024-11-02 13:14 | PM.PNGS ---
Progress Note: A&P Assessment and Plan (1) 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: Code(s): M86.9 - Osteomyelitis, unspecified Status: Acute Assessment and Plan: Postop day 1 following partial amputation of right 3rd toe. Continue daily dressing changes with xeroform gauze and 4x4's and kerlex. Continue to wrap lower legs and feet with jie wrap for compression. Patient may be weight bearing on the right lower extremity if he is wearing his postop shoe. Patient lives at [facility] and will need evaluation for discharge planning from PT/OT, which has been ordered. Okay to transition to oral antibiotics. He will need another 1-2 weeks of oral antibiotics eventually once discharged. We will plan on re-evaluating his amputation site and flap for the next few days. He may be stable for discharge at the earliest Friday or if healing well. We will eventually plan to have him follow-up with Dr. Serrano in the office in 2 weeks. Plan I have discussed the patient's case and plan of care with Dr. Serrano. Subjective Subjective Date/Time Seen: 11/02/24 13:14 Post Op day: 1 (Partial amputation right 3rd toe) Interval history: Patient reports feeling confused and nursing states he has been confused through the day today. He is not having any pain. He is sitting in his chair with his postop shoe over his dressing. Exam Narrative: Right foot dressing removed. Right 3rd toe partial amputation with sutures intact and posterior flap appears very slightly dusky at the lateral aspect of the skin flap. Scant bloody drainage on dressing. Mild erythema and swelling of the proximal 3rd toe. No significant erythema spreading proximally up the foot. Objective Data Vital Signs Vital Signs: Vital Signs - 24 hr 11/01/24 15:04 11/01/24 15:15 11/01/24 15:30 Temperature 97.8 F Pulse Rate 58 L 62 59 L Respiratory Rate 14 18 14 Blood Pressure 135/59 L 144/65 H 156/63 H Pulse Oximetry 97 98 98 Oxygen Delivery Simple Face Mask Room Air Room Air Oxygen Flow Rate 8 11/01/24 15:45 11/01/24 16:00 11/01/24 16:35 Temperature 97.9 F 97.8 F Pulse Rate 53 L 65 57 L Respiratory Rate 12 14 17 Blood Pressure 149/57 H 150/77 H 168/62 H Pulse Oximetry 95 94 97 Oxygen Delivery Room Air Room Air Oxygen Flow Rate 11/01/24 16:50 11/01/24 17:30 11/01/24 18:30 Temperature 97.8 F 98.0 F 98.1 F Pulse Rate 60 70 62 Respiratory Rate 16 16 16 Blood Pressure 168/64 H 166/98 H 124/78 Pulse Oximetry 99 97 98 Oxygen Delivery Oxygen Flow Rate 11/01/24 21:00 11/01/24 21:58 11/02/24 09:00 Temperature 97.0 F L Pulse Rate 57 L Respiratory Rate 20 Blood Pressure 156/57 H Pulse Oximetry 98 Oxygen Delivery Room Air Room Air Oxygen Flow Rate 11/02/24 09:38 11/02/24 09:40 11/02/24 09:43 Temperature Pulse Rate 72 76 Respiratory Rate Blood Pressure 119/50 L Pulse Oximetry Oxygen Delivery Room Air Oxygen Flow Rate Intake/Output Intake/Output: Intake & Output 10/30/24 10/31/24 11/01/24 11/02/24 23:59 23:59 23:59 23:59 Intake Total 2900 2210 1640 950 Output Total 1200 1100 2600 900 Balance 1700 1110 -960 50 Meds/Results Medications: Active Medications Generic Name Dose Route Start Last Admin Trade Name Freq PRN Reason Stop Dose Admin Acetaminophen 650 mg 10/28/24 15:18 Acetaminophen 325 Mg Tablet PO Q4H PRN Mild Pain (1-3) or Fever Hydrocodone Bitart/Acetaminophen 1 tab 10/28/24 15:18 10/30/24 18:59 Hydrocodone/Acetaminophen (*Crx) 5-325 Mg Tablet PO 1 tab Q4H PRN Administration Moderate Pain (4-6) Aspirin 81 mg 10/29/24 09:00 11/02/24 09:43 Aspirin 81 Mg Enteric Tablet PO 81 mg DAILY ALBIN Administration Docusate Sodium 100 mg 10/28/24 17:00 11/02/24 09:43 Docusate Sodium 100 Mg Capsule PO 100 mg BID ALBIN Administration Dutasteride 0.5 mg 10/28/24 21:00 11/01/24 21:58 Dutasteride 0.5 Mg Capsule PO 0.5 mg HS ALBIN Administration Enoxaparin Sodium 40 mg 10/29/24 12:45 11/02/24 09:43 Enoxaparin 40 Mg/0.4 Ml Syringe SUB-Q 40 mg DAILY ALBIN Administration Furosemide 20 mg 10/29/24 09:00 11/02/24 09:42 Furosemide 20 Mg Tablet PO 20 mg QAM ALBIN Administration Aztreonam 1 gm in 50 mls @ 100 mls/hr 10/28/24 22:00 11/02/24 05:35 Azactam 1 Gm/Ns 50 Ml IVPB Infused Q8H ALBIN Infusion Vancomycin HCl 1,500 mg in 500 mls @ 250 mls/hr 11/02/24 09:00 11/02/24 11:48 Vancomycin 1,500 Mg/Ns 500 Ml IVPB Infused Q12H ALBIN Infusion Losartan Potassium 50 mg 10/29/24 09:00 11/02/24 09:43 Losartan Potassium 50 Mg Tablet PO 50 mg DAILY ALBIN Administration Mirabegron 25 mg 10/28/24 21:00 11/01/24 21:58 Mirabegron 25 Mg Er Tablet PO 25 mg HS ALBIN Administration Morphine Sulfate 2 mg 10/28/24 15:18 Morphine Sulfate (*Crx) 2 Mg/Ml Inj IV PUSH Q4H PRN Pain Rated 7-10 Nebivolol 5 mg 10/29/24 09:00 11/02/24 09:43 Nebivolol Hcl 5 Mg Tablet PO 5 mg DAILY ALBIN Administration Polyethylene Glycol 17 gm 10/29/24 09:00 11/02/24 09:46 Polyethylene Glycol 3350 17 Gm Powd.Pack PO Not Given DAILY ALBIN Rosuvastatin Calcium 10 mg 10/29/24 09:00 11/02/24 09:42 Rosuvastatin 10 Mg Tablet PO 10 mg DAILY ALBIN Administration Sertraline HCl 25 mg 10/29/24 09:00 11/02/24 09:43 Sertraline Hcl 25 Mg Tablet PO 25 mg DAILY ALBIN Administration Tamsulosin HCl 0.4 mg 10/28/24 21:00 11/01/24 21:58 Tamsulosin Hcl 0.4 Mg Capsule BY MOUTH 0.4 mg HS [facility] Administration Radiology Results: ITS Impressions Toe X-Ray 10/28/24 14:02 IMPRESSION: Erosion at the tuft of the right third distal phalanx consistent with osteomyelitis. Chest X-Ray 10/29/24 00:18 IMPRESSION: No acute cardiopulmonary pathology Labs Labs: Laboratory Results - last 24 hr 11/02/24 03:06 Creatinine 0.68 L Estim Creat Clear Calc 69 Estimated GFR > 60 Vancomycin Trough 21.0 H
[2024-11-02] MEDS: CEFDINIR 300 MG CAPSULE PO ×2 (13:58→20:19)
[2024-11-02 14:00] VITALS: BP 116/43; PULSE 63; RESP 18; TEMP 36.1; O2SAT 96
[2024-11-02] MEDS: TAMSULOSIN HCL 0.4 MG CAPSULE BY MOUTH (20:19)
[2024-11-02] MEDS: DUTASTERIDE 0.5 MG CAPSULE PO (20:19)
[2024-11-02] MEDS: MIRABEGRON 25 MG ER TABLET PO (20:19)
[2024-11-02] MEDS: DOXYCYCLINE HYCLATE 100 MG TABLET PO (20:19)
[2024-11-02 21:20] VITALS: BP 130/46; PULSE 59; RESP 20; TEMP 37; O2SAT 96
[2024-11-03 05:35] VITALS: BP 152/57; PULSE 67; RESP 18; TEMP 35.6; O2SAT 97
--- NOTE | 2024-11-03 06:15 | PC.NURSE ---
Patient noncompliant with fall precaution bed alarm set, does not use call light when he had to use bathroom or post op boot. Education discussed about fall prevention, bed alarm, when to call for assistance before getting out of bed in addition wearing post-op boot when out/ambulating. When getting up from bed to stand, he would use one hand to push off bed and the other hand use side table. Patient was educated when getting up, use both hands to push to stand on stable surfaces and bedside table may move and slide while standing. Bed in lowest position, call light within reach and fall precaution bed alarm set.
[2024-11-03] MEDS: DOCUSATE SODIUM 100 MG CAPSULE PO (08:14)
[2024-11-03 08:15] VITALS: PULSE 67
[2024-11-03] MEDS: FUROSEMIDE 20 MG TABLET PO (08:15)
[2024-11-03] MEDS: ASPIRIN 81 MG ENTERIC TABLET PO (08:15)
[2024-11-03] MEDS: ROSUVASTATIN 10 MG TABLET PO (08:15)
[2024-11-03] MEDS: SERTRALINE HCL 25 MG TABLET PO (08:15)
[2024-11-03] MEDS: CEFDINIR 300 MG CAPSULE PO ×2 (08:15→20:24)
[2024-11-03] MEDS: NEBIVOLOL HCL 5 MG TABLET PO (08:15)
[2024-11-03] MEDS: LOSARTAN POTASSIUM 50 MG TABLET PO (08:15)
[2024-11-03] MEDS: DOXYCYCLINE HYCLATE 100 MG TABLET PO ×2 (08:15→20:24)
[2024-11-03] MEDS: ENOXAPARIN 40 MG/0.4 ML SYRINGE SUB-Q (08:16)
--- NOTE | 2024-11-03 09:19 | P.PNIM_ITS ---
Progress Note: A&P Assessment and Plan (1) 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: Code(s): M86.9 - Osteomyelitis, unspecified Status: Acute Assessment and Plan: Toe XR showed erosion at the tuft of the right third distal phalanx consistent with osteomyelitis. - Antibiotics: vancomycin and azactam started on 10/28, transitioned to cefdinir and doxycycline on 11/02 (course to be completed 11/15) - Blood culture negative - Monitor vital signs, I&Os, neuro status and patient is a fall risk - Monitor serum electrolytes, CBC, cultures, WBC and temp curve - PT/OT recommending SNF placement. Per surgery patient may be weight bearing on the right lower extremity if he is wearing his postop shoe. - Surgery consulted s/p partial amputation right 3rd toe on 11/[address] Serrano Dressing was changed per surgery at the bedside with xeroform gauze and 4x4's and kerlex. Continue to wrap lower legs and feet with jie wrap for compression. Plan to have him follow-up with Dr. Serraon in the office in 2 weeks. (2) Primary hypertension: Code(s): I10 - Essential (primary) hypertension Status: Acute Assessment and Plan: Chronic, continue home medications - losartan 50 mg daily - nebivolol 5 mg daily - lasix 20 mg daily - blood pressures stable, continue to monitor (3) Coronary artery disease: Code(s): I25.10 - Atherosclerotic heart disease of [place] coronary artery without angina pectoris Status: Acute Assessment and Plan: Continue statin, Bystolic, losartan and aspirin Discussed with surgery and will resume Xarelto (4) Hyperlipidemia: Qualifiers: Hyperlipidemia type: unspecified Qualified Code(s): E78.5 - Hyperlipidemia, unspecified Code(s): E78.5 - Hyperlipidemia, unspecified Status: Acute Assessment and Plan: Continue statin (5) Chronic constipation: Code(s): K59.09 - Other constipation Status: Acute Assessment and Plan: Senna (6) Lower extremity edema: Code(s): R60.0 - Localized edema Status: Acute Assessment and Plan: Patient states that he has been on Lasix for the last month for his lower extremity swelling, patient does not know if CHF Echo showed LVEF 55-60% with grade II diastolic dysfunction Continue home Lasix elevate legs jie wrap and/or compressions stockings Time Spent With Patient Time with patient: 25 - 35 minutes Subjective Date/time seen: 11/03/24 09:19 Interval history: 88 year old male with past medical history of hypertension, hyperlipidemia, CAD, BPH, and GERD presents to the hospital for nonhealing wound to the right third toe. Patient is pleasant lying comfortably in bed. He is AOx3 on assessment. He has no complaints denying chest pain, shortness of breath, palpitations, nausea/vomiting and abdominal pain. He denies any pain. Review of Systems Review of Systems: All systems reviewed & are unremarkable except as noted in HPI and below Exam Narrative: AF HR 67 RR 18 SpO2 97 BP 152/57 General: male in no acute respiratory distress who is nontoxic appearing, lying semi recumbent in bed. HEENT: Normocephalic. Atraumatic. Extraocular movement intact. Sclera clear and anicteric. No facial asymmetry. Chest: Lungs are clear to auscultation bilaterally. No wheezes or crackles. CV: Heart was regular rate and rhythm. Abd: Abdomen was soft. Nontender. Nondistended. Positive bowel sounds. Ext: No clubbing, cyanosis, or edema. DP pulses bilaterally. Neuro: Patient is alert and oriented x3. Speech is clear. Objective Data Vital Signs Vital Signs: Vital Signs - 24 hr 11/02/24 09:38 11/02/24 09:40 11/02/24 09:43 Temperature Pulse Rate 72 76 Respiratory Rate Blood Pressure 119/50 L Pulse Oximetry Oxygen Delivery Room Air 11/02/24 14:00 11/02/24 14:34 11/02/24 20:19 Temperature 96.9 F L Pulse Rate 63 Respiratory Rate 18 Blood Pressure 116/43 L Pulse Oximetry 96 Oxygen Delivery Room Air Room Air 11/02/24 21:20 11/03/24 05:35 11/03/24 08:15 Temperature 98.6 F 96.1 F L Pulse Rate 59 L 67 67 Respiratory Rate 20 18 Blood Pressure 130/46 L 152/57 H Pulse Oximetry 96 97 Oxygen Delivery Intake/Output Intake/Output: Intake & Output 10/31/24 11/01/24 11/02/24 11/03/24 23:59 23:59 23:59 23:59 Intake Total 2210 1640 1070 420 Output Total 1100 2600 900 Balance 1110 -960 170 420 Meds/Results Medications: Active Medications Generic Name Dose Route Start Last Admin Trade Name Freq PRN Reason Stop Dose Admin Acetaminophen 650 mg 10/28/24 15:18 Acetaminophen 325 Mg Tablet PO Q4H PRN Mild Pain (1-3) or Fever Hydrocodone Bitart/Acetaminophen 1 tab 10/28/24 15:18 10/30/24 18:59 Hydrocodone/Acetaminophen (*Crx) 5-325 Mg Tablet PO 1 tab Q4H PRN Administration Moderate Pain (4-6) Aspirin 81 mg 10/29/24 09:00 11/03/24 08:15 Aspirin 81 Mg Enteric Tablet PO 81 mg DAILY ALBIN Administration Cefdinir 300 mg 11/02/24 14:00 11/03/24 08:15 Cefdinir 300 Mg Capsule PO 11/15/24 21:01 300 mg Q12HR ALBIN Administration Docusate Sodium 100 mg 10/28/24 17:00 11/03/24 08:14 Docusate Sodium 100 Mg Capsule PO 100 mg BID ALBIN Administration Doxycycline Hyclate 100 mg 11/02/24 21:00 11/03/24 08:15 Doxycycline Hyclate 100 Mg Tablet PO 11/15/24 21:01 100 mg Q12HR ALBIN Administration Dutasteride 0.5 mg 10/28/24 21:00 11/02/24 20:19 Dutasteride 0.5 Mg Capsule PO 0.5 mg HS ALBIN Administration Enoxaparin Sodium 40 mg 10/29/24 12:45 11/03/24 08:16 Enoxaparin 40 Mg/0.4 Ml Syringe SUB-Q 40 mg DAILY ALBIN Administration Furosemide 20 mg 10/29/24 09:00 11/03/24 08:15 Furosemide 20 Mg Tablet PO 20 mg QAM ALBIN Administration Losartan Potassium 50 mg 10/29/24 09:00 11/03/24 08:15 Losartan Potassium 50 Mg Tablet PO 50 mg DAILY ALBIN Administration Mirabegron 25 mg 10/28/24 21:00 11/02/24 20:19 Mirabegron 25 Mg Er Tablet PO 25 mg HS ALBIN Administration Morphine Sulfate 2 mg 10/28/24 15:18 Morphine Sulfate (*Crx) 2 Mg/Ml Inj IV PUSH Q4H PRN Pain Rated 7-10 Nebivolol 5 mg 10/29/24 09:00 11/03/24 08:15 Nebivolol Hcl 5 Mg Tablet PO 5 mg DAILY ALBIN Administration Polyethylene Glycol 17 gm 10/29/24 09:00 11/03/24 08:16 Polyethylene Glycol 3350 17 Gm Powd.Pack PO Not Given DAILY [facility] Rosuvastatin Calcium 10 mg 10/29/24 09:00 11/03/24 08:15 Rosuvastatin 10 Mg Tablet PO 10 mg DAILY ALBIN Administration Sertraline HCl 25 mg 10/29/24 09:00 11/03/24 08:15 Sertraline Hcl 25 Mg Tablet PO 25 mg DAILY ALBIN Administration Tamsulosin HCl 0.4 mg 10/28/24 21:00 11/02/24 20:19 Tamsulosin Hcl 0.4 Mg Capsule BY MOUTH 0.4 mg HS ALBIN Administration Radiology Results: ITS Impressions Toe X-Ray 10/28/24 14:02 IMPRESSION: Erosion at the tuft of the right third distal phalanx consistent with osteomyelitis. Chest X-Ray 10/29/24 00:18 IMPRESSION: No acute cardiopulmonary pathology Quality VTE Prophylaxis VTE prophylaxis: mechanical ordered and pharmacologic ordered
[2024-11-03 09:44] LABS: Hematocrit 40.9 % (42.0-52.0); Hemoglobin 13.3 g/dL (14.0-18.0); Mean Corpuscular HGB Conc 32.5 g/dl (32-36); Mean Corpuscular Hemoglobin 31.5 pg (26-34); Mean Corpuscular Volume 96.9 fl (80-100); Platelet Count Result 253 k/mm3 (150-375); Red Blood Count 4.22 M/mm3 (4.6-6.20); White Blood Count 6.1 K/mm3 (4.5-10.0)
[2024-11-03 09:57] LABS: Alanine Aminotransferase 22 U/L (6-50); Albumin Level 3.6 g/dL (3.5-5.1); Alkaline Phosphatase 54 U/L (38-126); Anion Gap 4 mmol/L (4-12); Aspartate Amino Transferase 42 U/L (17-59); Bilirubin,Total 0.7 mg/dL (0.2-1.3); Blood Urea Nitrogen 15 mg/dL (9-20); Calcium 8.5 mg/dL (8.4-10.2); Carbon Dioxide 32 mmol/L (22-30); Chloride 103 mmol/L (98-107); Estimated CRCL calculation 61 ml/min; Estimated Glomerular Filt Rate > 60; Glucose 120 mg/dL (65-110); Potassium 3.6 mmol/L (3.4-5.0); Sodium 139 mmol/L (137-145); Total Protein 6.5 g/dL (6.3-8.2)
--- NOTE | 2024-11-03 11:34 | P.PNGS_ITS ---
Progress Note: A&P Assessment and Plan (1) 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: Code(s): M86.9 - Osteomyelitis, unspecified Status: Acute Assessment and Plan: * Postop day 2 following partial amputation of right 3rd toe. Continue daily dressing changes with xeroform gauze and 4x4's and kerlex. Continue to wrap lower legs and feet with jie wrap for compression. * Patient may be weight bearing on the right lower extremity if he is wearing his postop shoe. * Transitioned to oral antibiotics yesterday and tolerating this well. He will discharge on another 1-2 weeks of oral abx. * Will resume his Xarelto today * PT nolan recommends SNF vs home health. He came from [place] assisted living. It seems like SNF placement would be more appropriate for safety due to his confusion and navigation issues and frequent redirection with therapy. Plan I have discussed the patient's case and plan of care with Dr. Serrano. Subjective Subjective Date/Time Seen: 11/03/24 11:34 Post Op day: 2 (Partial amputation right 3rd toe) Patient reports: no new complaints and afebrile Interval history: Patient pleasantly confused. Unchanged from yesterday. He is able to answer orientation questions and remembered me from yesterday. He denies any pain. Per nursing, no acute issues overnight. Exam Narrative: Right foot dressing removed. Right 3rd toe partial amputation with sutures intact and posterior flap appears slightly dusky in the middle tip of the amputation site with a small dry, dark black area of skin at the lateral edge of the incision. Scant bloody drainage on dressing. Mild erythema and swelling of the proximal 3rd toe. No significant erythema spreading proximally up the foot. Const: General: comfortable and no acute distress Objective Data Vital Signs Vital Signs: Vital Signs - 24 hr 11/02/24 14:00 11/02/24 14:34 11/02/24 20:19 Temperature 96.9 F L Pulse Rate 63 Respiratory Rate 18 Blood Pressure 116/43 L Pulse Oximetry 96 Oxygen Delivery Room Air Room Air 11/02/24 21:20 11/03/24 05:35 11/03/24 08:15 Temperature 98.6 F 96.1 F L Pulse Rate 59 L 67 67 Respiratory Rate 20 18 Blood Pressure 130/46 L 152/57 H Pulse Oximetry 96 97 Oxygen Delivery 11/03/24 08:15 Temperature Pulse Rate Respiratory Rate Blood Pressure Pulse Oximetry Oxygen Delivery Room Air Intake/Output Intake/Output: Intake & Output 10/31/24 11/01/24 11/02/24 11/03/24 23:59 23:59 23:59 23:59 Intake Total 2210 1640 1070 420 Output Total 1100 2600 900 Balance 1110 -960 170 420 Meds/Results Medications: Active Medications Generic Name Dose Route Start Last Admin Trade Name Freq PRN Reason Stop Dose Admin Acetaminophen 650 mg 10/28/24 15:18 Acetaminophen 325 Mg Tablet PO Q4H PRN Mild Pain (1-3) or Fever Hydrocodone Bitart/Acetaminophen 1 tab 10/28/24 15:18 10/30/24 18:59 Hydrocodone/Acetaminophen (*Crx) 5-325 Mg Tablet PO 1 tab Q4H PRN Administration Moderate Pain (4-6) Aspirin 81 mg 10/29/24 09:00 11/03/24 08:15 Aspirin 81 Mg Enteric Tablet PO 81 mg DAILY ALBIN Administration Cefdinir 300 mg 11/02/24 14:00 11/03/24 08:15 Cefdinir 300 Mg Capsule PO 11/15/24 21:01 300 mg Q12HR ALBIN Administration Docusate Sodium 100 mg 10/28/24 17:00 11/03/24 08:14 Docusate Sodium 100 Mg Capsule PO 100 mg BID ALBIN Administration Doxycycline Hyclate 100 mg 11/02/24 21:00 11/03/24 08:15 Doxycycline Hyclate 100 Mg Tablet PO 11/15/24 21:01 100 mg Q12HR ALBIN Administration Dutasteride 0.5 mg 10/28/24 21:00 11/02/24 20:19 Dutasteride 0.5 Mg Capsule PO 0.5 mg HS ALBIN Administration Enoxaparin Sodium 40 mg 10/29/24 12:45 11/03/24 08:16 Enoxaparin 40 Mg/0.4 Ml Syringe SUB-Q 40 mg DAILY ALBIN Administration Furosemide 20 mg 10/29/24 09:00 11/03/24 08:15 Furosemide 20 Mg Tablet PO 20 mg QAM ALBIN Administration Losartan Potassium 50 mg 10/29/24 09:00 11/03/24 08:15 Losartan Potassium 50 Mg Tablet PO 50 mg DAILY ALBIN Administration Mirabegron 25 mg 10/28/24 21:00 11/02/24 20:19 Mirabegron 25 Mg Er Tablet PO 25 mg HS ALBIN Administration Morphine Sulfate 2 mg 10/28/24 15:18 Morphine Sulfate (*Crx) 2 Mg/Ml Inj IV PUSH Q4H PRN Pain Rated 7-10 Nebivolol 5 mg 10/29/24 09:00 11/03/24 08:15 Nebivolol Hcl 5 Mg Tablet PO 5 mg DAILY ALBIN Administration Polyethylene Glycol 17 gm 10/29/24 09:00 11/03/24 08:16 Polyethylene Glycol 3350 17 Gm Powd.Pack PO Not Given DAILY ALBIN Rosuvastatin Calcium 10 mg 10/29/24 09:00 11/03/24 08:15 Rosuvastatin 10 Mg Tablet PO 10 mg DAILY ALBIN Administration Sertraline HCl 25 mg 10/29/24 09:00 11/03/24 08:15 Sertraline Hcl 25 Mg Tablet PO 25 mg DAILY ALBIN Administration Tamsulosin HCl 0.4 mg 10/28/24 21:00 11/02/24 20:19 Tamsulosin Hcl 0.4 Mg Capsule BY MOUTH 0.4 mg HS ALBIN Administration Radiology Results: ITS Impressions Toe X-Ray 10/28/24 14:02 IMPRESSION: Erosion at the tuft of the right third distal phalanx consistent with osteomyelitis. Chest X-Ray 10/29/24 00:18 IMPRESSION: No acute cardiopulmonary pathology Labs Labs: Laboratory Results - last 24 hr 11/03/24 09:38 WBC 6.1 RBC 4.22 L Hgb 13.3 L Hct 40.9 L MCV 96.9 MCH 31.5 MCHC 32.5 RDW 13.5 Plt Count 253 MPV 9.7 Sodium 139 Potassium 3.6 Chloride 103 Carbon Dioxide 32 H Anion Gap 4 BUN 15 Creatinine 0.77 Estim Creat Clear Calc 61 Estimated GFR > 60 Glucose 120 H Calcium 8.5 Total Bilirubin 0.7 AST 42 ALT 22 Alkaline Phosphatase 54 Total Protein 6.5 Albumin 3.6
[2024-11-03 14:00] VITALS: BP 110/53; PULSE 58; RESP 18; TEMP 35.7; O2SAT 99
[2024-11-03] MEDS: DUTASTERIDE 0.5 MG CAPSULE PO (20:24)
[2024-11-03] MEDS: MIRABEGRON 25 MG ER TABLET PO (20:24)
[2024-11-03] MEDS: TAMSULOSIN HCL 0.4 MG CAPSULE BY MOUTH (20:24)
[2024-11-03 22:00] VITALS: BP 143/54; PULSE 58; RESP 16; TEMP 36.4; O2SAT 97
[2024-11-04 06:00] VITALS: BP 136/59; PULSE 63; RESP 16; TEMP 36.5; O2SAT 98
[2024-11-04 09:19] VITALS: PULSE 63
[2024-11-04] MEDS: DOCUSATE SODIUM 100 MG CAPSULE PO (09:19)
[2024-11-04] MEDS: DOXYCYCLINE HYCLATE 100 MG TABLET PO (09:19)
[2024-11-04] MEDS: ASPIRIN 81 MG ENTERIC TABLET PO (09:19)
[2024-11-04] MEDS: ROSUVASTATIN 10 MG TABLET PO (09:19)
[2024-11-04] MEDS: NEBIVOLOL HCL 5 MG TABLET PO (09:19)
[2024-11-04] MEDS: FUROSEMIDE 20 MG TABLET PO (09:19)
[2024-11-04] MEDS: LOSARTAN POTASSIUM 50 MG TABLET PO (09:19)
[2024-11-04] MEDS: SERTRALINE HCL 25 MG TABLET PO (09:20)
[2024-11-04] MEDS: CEFDINIR 300 MG CAPSULE PO (09:20)
[2024-11-04] MEDS: RIVAROXABAN 20 MG TABLET PO (09:20)
--- NOTE | 2024-11-04 09:55 | PCNWS ---
Weekly nutritional screen. Patient is tolerating current Heart healthy diet with adequate intake, 90-100%. No weight loss reported. No nutritional needs at this time.
--- NOTE | 2024-11-04 11:39 | P.PNGS_ITS ---
Progress Note: A&P Assessment and Plan (1) 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: Code(s): M86.9 - Osteomyelitis, unspecified Status: Acute Assessment and Plan: * Postop day 3 following partial amputation of right 3rd toe. Surgically stable for discharge on another 1-2 weeks of oral antibiotics. Plan is for patient to go back to [facility]. * Continue daily dressing changes with xeroform gauze and 4x4's and kerlex. Continue to wrap lower legs and feet with jie wrap for compression. * Wear postop shoe with activity/ambulation. * He will follow-up with Dr. Serrano in our office in 2 weeks for suture removal. Plan I have discussed the patient's case and plan of care with Dr. Serrano. Subjective Subjective Date/Time Seen: 11/04/24 11:39 Interval history: No acute changes overnight. No issues per nursing. Patient pleasantly confused without any complaints. Exam Narrative: Right foot dressing removed. Right 3rd toe partial amputation with sutures intact and posterior flap appears slightly dusky in the middle tip of the amputation site with a small dry, dark black area of skin at the lateral edge of the incision. Scant bloody drainage on dressing. Mild erythema and swelling of the proximal 3rd toe. No significant erythema spreading proximally up the foot. Objective Data Vital Signs Vital Signs: Vital Signs - 24 hr 11/03/24 14:00 11/03/24 20:00 11/03/24 22:00 Temperature 96.3 F L 97.5 F L Pulse Rate 58 L 58 L Respiratory Rate 18 16 Blood Pressure 110/53 L 143/54 H Pulse Oximetry 99 97 Oxygen Delivery Room Air 11/04/24 06:00 11/04/24 09:19 Temperature 97.7 F Pulse Rate 63 63 Respiratory Rate 16 Blood Pressure 136/59 L Pulse Oximetry 98 Oxygen Delivery Intake/Output Intake/Output: Intake & Output 11/01/24 11/02/24 11/03/24 11/04/24 23:59 23:59 23:59 23:59 Intake Total 1640 1070 740 240 Output Total 2600 900 300 Balance -960 170 440 240 Meds/Results Medications: Active Medications Generic Name Dose Route Start Last Admin Trade Name Freq PRN Reason Stop Dose Admin Acetaminophen 650 mg 10/28/24 15:18 Acetaminophen 325 Mg Tablet PO Q4H PRN Mild Pain (1-3) or Fever Hydrocodone Bitart/Acetaminophen 1 tab 10/28/24 15:18 10/30/24 18:59 Hydrocodone/Acetaminophen (*Crx) 5-325 Mg Tablet PO 1 tab Q4H PRN Administration Moderate Pain (4-6) Aspirin 81 mg 10/29/24 09:00 11/04/24 09:19 Aspirin 81 Mg Enteric Tablet PO 81 mg DAILY ALBIN Administration Cefdinir 300 mg 11/02/24 14:00 11/04/24 09:20 Cefdinir 300 Mg Capsule PO 11/15/24 21:01 300 mg Q12HR ALBIN Administration Docusate Sodium 100 mg 10/28/24 17:00 11/04/24 09:19 Docusate Sodium 100 Mg Capsule PO 100 mg BID ALBIN Administration Doxycycline Hyclate 100 mg 11/02/24 21:00 11/04/24 09:19 Doxycycline Hyclate 100 Mg Tablet PO 11/15/24 21:01 100 mg Q12HR ALBIN Administration Dutasteride 0.5 mg 10/28/24 21:00 11/03/24 20:24 Dutasteride 0.5 Mg Capsule PO 0.5 mg HS ALBIN Administration Furosemide 20 mg 10/29/24 09:00 11/04/24 09:19 Furosemide 20 Mg Tablet PO 20 mg QAM ALBIN Administration Losartan Potassium 50 mg 10/29/24 09:00 11/04/24 09:19 Losartan Potassium 50 Mg Tablet PO 50 mg DAILY ALBIN Administration Mirabegron 25 mg 10/28/24 21:00 11/03/24 20:24 Mirabegron 25 Mg Er Tablet PO 25 mg HS ALBIN Administration Morphine Sulfate 2 mg 10/28/24 15:18 Morphine Sulfate (*Crx) 2 Mg/Ml Inj IV PUSH Q4H PRN Pain Rated 7-10 Nebivolol 5 mg 10/29/24 09:00 11/04/24 09:19 Nebivolol Hcl 5 Mg Tablet PO 5 mg DAILY ALBIN Administration Polyethylene Glycol 17 gm 10/29/24 09:00 11/04/24 09:19 Polyethylene Glycol 3350 17 Gm Powd.Pack PO 17 gm DAILY ALBIN Administration Rivaroxaban 20 mg 11/04/24 09:00 11/04/24 09:20 Rivaroxaban 20 Mg Tablet PO 20 mg DAILY ALBIN Administration Rosuvastatin Calcium 10 mg 10/29/24 09:00 11/04/24 09:19 Rosuvastatin 10 Mg Tablet PO 10 mg DAILY ALBIN Administration Sertraline HCl 25 mg 10/29/24 09:00 11/04/24 09:20 Sertraline Hcl 25 Mg Tablet PO 25 mg DAILY ALBIN Administration Tamsulosin HCl 0.4 mg 10/28/24 21:00 11/03/24 20:24 Tamsulosin Hcl 0.4 Mg Capsule BY MOUTH 0.4 mg HS ALBIN Administration Radiology Results: ITS Impressions Toe X-Ray 10/28/24 14:02 IMPRESSION: Erosion at the tuft of the right third distal phalanx consistent with osteomyelitis. Chest X-Ray 10/29/24 00:18 IMPRESSION: No acute cardiopulmonary pathology
--- NOTE | 2024-11-04 12:34 | P.DS_ITS ---
DS: Admitting Diagnosis Discharge Date 11/04/2024 Admitting Diagnosis osteomyelitis of third toe of right foot primary hypertension CAD HLD Constipation Lower extremity edema DS: Discharge Diagnosis Discharge Diagnosis (1) 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: Code(s): M86.9 - Osteomyelitis, unspecified Status: Acute (2) Primary hypertension: Code(s): I10 - Essential (primary) hypertension Status: Acute (3) Coronary artery disease: Code(s): I25.10 - Atherosclerotic heart disease of [place] coronary artery without angina pectoris Status: Acute (4) Hyperlipidemia: Qualifiers: Hyperlipidemia type: unspecified Qualified Code(s): E78.5 - Hyperlipidemia, unspecified Code(s): E78.5 - Hyperlipidemia, unspecified Status: Acute (5) Chronic constipation: Code(s): K59.09 - Other constipation Status: Acute (6) Lower extremity edema: Code(s): R60.0 - Localized edema Status: Acute DS: Summary Hospital Course Reason for hospitalization: osteomyelitis of third toe of right foot primary hypertension CAD HLD Constipation Lower extremity edema Hospital Course: 88 year old male with past medical history of hypertension, hyperlipidemia, CAD, BPH, and GERD presents to the hospital for nonhealing wound to the right third toe. Toe XR showed erosion at the tuft of the right third distal phalanx consistent with osteomyelitis. Blood cultures negative. Started on IV antibiotics and surgery consulted. Patient underwent partial amputation right 3rd toe on 11/[address] Serrano. Patient transitioned to oral antibiotics to complete the course. Patient to continue dressing changes per surgery recommendations. Patient to follow up with surgery in the outpatient setting. Fr om surgical perspective patient was cleared for discharge. Patient worked well with PT/OT who recommended continued therapy. Per care coordination patient to continue therapy at his assisted living. Patient was endorsing lower extremity edema. Echo showed LVEF 55-60% with grade II diastolic dysfunction. Remains on lasix. Patient had no complaints at time of discharge denying chest pain, shortness a breath, palpitations, nausea/vomiting, abdominal pain. He denies any pain/tingling/numbness to the lower extremity. [facility] health in a stable condi tion. He is to follow up with PCP in 1 week and surgery as scheduled. Status at Discharge Functional status at discharge: uses cane/walker Time Spent with Patient Time attestation: Total time spent providing and/or coordinating discharge services: Time spent: Greater than 30 minutes Exam Narrative: AF HR 63 RR 16 SpO2 98 BP 136/59 General: male in no acute respiratory distress who is nontoxic appearing, sitting up in bed. HEENT: Normocephalic. Atraumatic. Extraocular movement intact. Sclera clear and anicteric. No facial asymmetry. Chest: Lungs are clear to auscultation bilaterally. No wheezes or crackles. CV: Heart was regular rate and rhythm. Abd: Abdomen was soft. Nontender. Nondistended. Positive bowel sounds. Ext: No clubbing, cyanosis, or edema. DP pulses bilaterally. Dressing clean/dry/intact. Neuro: Patient is alert and oriented x3. Speech is clear. DS: Data Data Completed and Pending Completed studies during hospitalization: chest xr toe xr Pending studies at discharge: Pending at discharge 11/01/24 14:43 Surgical [PTH] Routine Discharge Plan Discharge Attending physician on discharge: Elidia Castañeda Consulting providers: Didier Serrano Discharging Clinician: Fabiola Min Anticipated Discharge Date/Time: 11/04/24 12:29 Patient Disposition: Home with Home Health Service Activity: august shower Diet: as tolerated and heart healthy Wound Care Instructions: change dressing daily Discharge Instructions: Per Care Coordination: [facility] will contact you prior to their first visit. [facility] will follow for wound care technician and PT/OT eval and treat. [facility] can be contacted at [phone]. Nursing please fax discharge instructions to [phone] Discharge disposition: Patient admitted to the hospital for right third toe wound Underwent partial amputation right 3rd toe on 11/[address] Serrano Surgery discharge instructions: * Call to schedule an appointment with Dr. Serrano in 2 weeks for suture removal. [phone] * Wound care: Apply xeroform gauze to the right 3rd toe amputation and cover with 4x4 gauze, wrap with kerlex rolled gauze, and apply jie wrap. * Wear postop shoe when walking or with activity. If you transfer to the chair or the bathroom without your postop shoe, then you need to be heel-touch weight bearing. * Continue antibiotics as prescribed, complete the course even if feeling better cefdinir and doxycycline twice a day (course to be completed 11/15) attached is information on these medications Echo showed diastolic heart failure Take medications as prescribed lasix 20 mg daily, attached is information on this medication compression stocking as needed for lower extremity swelling Maintain a cardiac diet, 2 g sodium, do not over hydrate Remain active Monitor urine output Daily weights, if you gain more than 3 lb within 1 day or 5 lb in 1 week notify your primary care provider Strict bleeding precautions since you remain on plavix including shaving with an electric razor, holding pressure for greater than 20 minutes for injury, protection of had with any falls, etc. Monitor blood pressures Take caution while standing, rising, or moving Change positions slowly taking a break between each position change If you standing feel dizzy sit back down and take a break Encouraged to continue with yearly vaccinations Return to the emergency department if he developed sudden shortness of breath, chest pain, nausea, vomiting, upset stomach or intractable diarrhea Return to the emergency department if you develop fever greater than 101.5 Follow-up with the primary care physician within 1-2 weeks Thank you for [facility] for your healthcare needs Patient Instructions: Antibiotic Form, Furosemide (By mouth), Doxycycline (By mouth), Cefdinir (By mouth), Rivaroxaban (By mouth), Heart Failure (DC), Osteomyelitis (DC), Toe Amputation (DC) Patient Language: Dominican Stand Alone Forms: General Discharge Information Follow-up/Referrals: Laron Doe MD [Primary Care Provider] - 1 Week Didier Serrano MD [Physician] - 2 Weeks Discharge Medications: New cefdinir 300 mg Capsule 300 mg PO Q12HR Qty: 23 0RF doxycycline hyclate 100 mg Tablet 100 mg PO Q12HR Qty: 23 0RF Continued acetaminophen [Tylenol Arthritis Pain] 650 mg tablet extended release 650 mg PO Q8H PRN (Reason: pain) Qty: 90 0RF Benefiber Sugar Free (dextrin) 3 gram/4 gram powder in packet 3 g PO BID Qty: 28 11RF Rx Instructions: mix into at least 4 oz water or juice before administering polyethylene glycol 3350 [Miralax] 17 gram powder in packet 17 g PO DAILY Qty: 30 11RF lactulose 10 gram/15 mL solution 10 g PO DAILY PRN (Reason: constipation) Qty: 946 3RF omeprazole 40 mg capsule,delayed release(DR/EC) 20 mg PO DAILY Rx Instructions: take omeprazole 40 mg x 6 weeks then decrease to 20 mg daily Acidophilus Tablet,Chewable 1 tablet PO DAILY losartan 50 mg tablet 50 mg PO DAILY mirabegron 25 mg tablet extended release 24 hr 25 mg PO HS furosemide 20 mg tablet 20 mg PO QAM nebivolol [Bystolic] 5 mg tablet 5 mg PO DAILY dutasteride 0.5 mg capsule 0.5 mg PO HS Rx Instructions: take 1 capsule by oral route every day rosuvastatin 10 mg tablet 10 mg PO DAILY sertraline 25 mg tablet 25 mg PO DAILY Qty: 30 2RF tamsulosin 0.4 mg capsule See Rx Instructions .ROUTE .COMPLEX Qty: 90 1RF Dose Instruction: TAKE 1 CAPSULE BY MOUTH EVERY DAY AT BEDTIME Rx Instructions: TAKE 1 CAPSULE BY MOUTH EVERY DAY AT BEDTIME coenzyme Q10 [Q-Sorb Co Q-10] 200 mg capsule See Rx Instructions .ROUTE .COMPLEX Qty: 35 2RF Dose Instruction: TAKE ONE CAPSULE BY MOUTH EVERY MORNING Rx Instructions: TAKE ONE CAPSULE BY MOUTH EVERY MORNING multivitamin with folic acid [Tab-A-Magaly] 400 mcg tablet See Rx Instructions .ROUTE .COMPLEX Qty: 90 2RF Dose Instruction: TAKE ONE TABLET BY MOUTH EVERY MORNING Rx Instructions: TAKE ONE TABLET BY MOUTH EVERY MORNING aspirin 81 mg tablet,delayed release (DR/EC) 81 mg PO DAILY Qty: 90 1RF Xarelto 20 mg tablet 20 mg PO DAILY Qty: 30 5RF Rx Instructions: must administer with evening meal start after he finished loading dose for 3 weeks fluticasone propionate 50 mcg/actuation spray,suspension See Rx Instructions .ROUTE .COMPLEX Qty: 16 0RF Dose Instruction: INSTILL 1 SPRAY IN EACH NOSTRIL EVERY TWELVE HOURS NEEDED FOR NASAL CONGESTION Rx Instructions: INSTILL 1 SPRAY IN EACH NOSTRIL EVERY TWELVE HOURS NEEDED FOR NASAL CONGESTION Date of admission: 10/29/24 17:05 Primary Care Provider: Laron Doe Admitting Provider: Fern Carpio Attending physician on admission: Fern Carpio Condition: Stable Hospitalist MIPS Heart Failure (Exclusion) Patient has history of Heart Transplant or Left Ventricular Assistive Device?: No IF YES, STOP HERE Heart Failure (Qualifier) Patient has current or prior documentation of LVEF less than or equal to 40%, or mod/servere depressed LVSF?: No IF NO, STOP HERE
== END 2024-11-04 15:10 | disposition home health service (06) | DRG 504 ==
LOC: ANHED 15:04 → ANH3MEDSUR 16:07
PROVIDERS: Nurse Practitioner Gerontology; Surgery; Admitting Provider Internal Medicine; Emergency Provider Emergency Medicine; PCP Family Medicine; Visit Provider Student in an Organized Health Care Education/Training Program
PROC: 0Y6U0Z3 Detachment at Left 3rd Toe, Low, Open Approach (ICD-10-PCS; principal; 2024-11-01 14:00)
DX: M86.171 Other acute osteomyelitis, right ankle and foot (principal); I96 Gangrene, not elsewhere classified; L97.519 Non-pressure chronic ulcer of other part of right foot with unspecified severity; I10 Essential (primary) hypertension; I25.10 Atherosclerotic heart disease of native coronary artery without angina pectoris; E78.5 Hyperlipidemia, unspecified; K59.00 Constipation, unspecified; N40.0 Benign prostatic hyperplasia without lower urinary tract symptoms; K21.9 Gastro-esophageal reflux disease without esophagitis; M17.0 Bilateral primary osteoarthritis of knee; Z95.5 Presence of coronary angioplasty implant and graft; Z90.49 Acquired absence of other specified parts of digestive tract; Z87.891 Personal history of nicotine dependence; Z86.718 Personal history of other venous thrombosis and embolism; Z79.01 Long term (current) use of anticoagulants
CPT/HCPCS: 36415; 71045; 73660; 80048; 80053; 80202; 82565; 85025; 85027; 86140; 87040; 88305; 88311; 93005; 93308; 96361; 96365; 96366; 96367; 96375; 97110; 97116; 97161; 97165; 97530; 99285; A9270; G0378; J0457; J1650; J2003; J2704; J3010; J3373; J7030